=== PATIENT | female | born 1945 | race Caucasian/White ===

== ENCOUNTER 2017-05-14 15:19 | Outpatient (CLI) | payer MEDICARE, BC ==
--- NOTE | 2017-05-14 16:25 | RAD ---
CHEST ONE VIEW: History: Dyspnea. Comparison: 04-27-17 FINDINGS: Cardiac silhouette is magnified, enlarged, and partially obscured by a large amount of left pleural fluid, similar in appearance to the previous exam. Patient was rotated rightward. Right lung is well inflated. IMPRESSION: Large left pleural effusion and other findings are stable. POS: [facility]
== END 2017-05-14 15:20 | disposition home or self-care (01) ==
LOC: RAD 15:19
PROVIDERS: ATTEND Internal Medicine Critical Care Medicine
DX: R06.00 Dyspnea, unspecified (principal); J90 Pleural effusion, not elsewhere classified
CPT/HCPCS: 71020

== ENCOUNTER 2017-06-03 12:55 | Outpatient (CLI) | payer MEDICARE, BC ==
--- NOTE | 2017-06-03 13:29 | RAD ---
PA AND LATERAL VIEWS OF CHEST: Date: 06/03/17 HISTORY: Dyspnea. FINDINGS: Comparison made with exam of 05/14/17. The heart size is enlarged. The aorta is tortuous. A large left pleural effusion is noted with mild interval increase in size since the last exam. The right lung remains well aerated. Surgical clips i n the right axilla are again seen. The mid thoracic vertebral body is again noted. IMPRESSION: Large left pleural effusion with mild interval increase in size since 05/14/17. POS: [facility]
== END 2017-06-03 12:56 | disposition home or self-care (01) ==
LOC: RAD 12:55
PROVIDERS: ATTEND Internal Medicine Critical Care Medicine
DX: R06.00 Dyspnea, unspecified (principal)
CPT/HCPCS: 71020

== ENCOUNTER 2017-06-03 15:01 | Inpatient (IN) | payer MEDICARE, BC ==
[2017-06-03] MEDS ORDERED: Diltiazem HCl 125 MG, Admixture Fee 1 EACH in Sodium Chloride 0.9% 100 ML IVPB SCH (15:45)
[2017-06-03] MEDS ORDERED: Phytonadione 10 MG/ML AMP PO SCH (15:45)
[2017-06-03 16:34] VITALS: BMI 27.9
[2017-06-03 16:35] LABS: Prothrombin Time 35.2 SEC (12.0-14.7)
--- NOTE | 2017-06-03 16:39 | HP ---
DATE OF ADMISSION: 06/03/2017 REASON FOR ADMISSION: Atrial fibrillation with rapid ventricular response and also a massive left p leural effusion. HISTORY OF PRESENT ILLNESS: This is a 71-year-old female, who I first saw in the hospital in early 04/2017. At that time, she was admitted with hypotension and chest tightness. It was initially tho ught that she had congestive heart failure and perhaps liver failure, as she had a profound coagulop athy when she presented. She also had severe anemia. It was also thought that she had a small pulm onary embolism. She gradually got better and was discharged home. Dr. Elam did do a thoracentes is on the left side at that time, which showed a bloody exudative pleural effusion. She followed up in my office a couple weeks later and had a repeat chest x-ray, which showed continued pleural effu danisha on the left. At that time, she did not want to be admitted into the hospital. She wanted to s ee how she did over the next couple of weeks. She came in today for continued followup and an x-ray demonstrated continued large left pleural effusion. I also noted that she had a heart rate of 145, but did not appear to be in any respiratory distress. I spoke with Dr. Amaya and I have decided to admit her for the purpose of reversing her anticoagulation, controlling her ventricular rate, and h aving a thoracoscopy performed to work up the pleural effusion. PAST MEDICAL HISTORY: 1. Mitral valve prolapse. 2. Hyperlipidemia. 3. Hypothyroidism. 4. Depression. 5. Insomnia. 6. Ulcerative colitis. PAST SURGICAL HISTORY: 1. She has had a carpal tunnel release. 2. Modified radical mastectomy of the right breast along with radiation to that breast. 3. Sigmoid colectomy. MEDICATIONS: Atorvastatin 40 mg daily, tessalon perles 200 mg daily as needed, ergocalciferol 50,00 0 units weekly, escitalopram 20 mg daily, iron sulfate 325 mg daily, fluticasone nasal spray 50 mcg 1 squirt in each nostril daily, levocetirizine 5 mg daily, levothyroxine 75 mcg daily, metoprolol 25 mg b.i.d., lisinopril 2.5 mg daily, pantoprazole 40 mg daily, mirtazapine 15 mg daily, polyethylene glycol daily, Theragran 50 mg daily, warfarin 2.5 mg daily, and Ambien 10 mg daily. ALLERGIES: DOXYCYCLINE, PENICILLIN, and MORPHINE. SOCIAL HISTORY: Does not use illicit drugs. She had a positive test for methamphetamine on the [facility] admission, but that is felt to be a contaminant or false positive. FAMILY MEDICAL HISTORY: She stopped smoking in the high school. Does not consume alcohol. REVIEW OF SYSTEMS: Remarkable for dyspnea and some loss of appetite. PHYSICAL EXAMINATION: VITAL SIGNS: Her O2 sat was 96%, pulse 145, blood pressure 110/80, respiratory rate 20. GENERAL: She is awake, alert, did not appear to be in any distress. HEENT EXAM: Pupils react. Sclerae are anicteric. Oropharynx is clear. NECK: Without adenopathy or JVD. LUNGS: Diminished breath sounds over the left side globally. Right side clear. CARDIAC: S1, S2, irregularly irregular and tachycardic. ABDOMEN: Soft, nontender, nondistended. EXTREMITIES: No clubbing, cyanosis, or edema. IMAGING: Her chest x-ray shows a massive left pleural effusion. ASSESSMENT: 1. Recurrent left pleural effusion -- bloody and exudative on last admission. 2. Anticoagulation for atrial fibrillation and a recent questionable small pulmonary embolism. 3. Atrial fibrillation with rapid ventricular response. PLAN: 1. Consult Dr. Amaya for thoracoscopy. 2. Reversing anticoagulation with vitamin K. 3. Consult Dr. Roth for evaluation of the patient's atrial fibrillation and control of ventricu lar rate. 4. Further disposition to follow.
[2017-06-03 16:47] LABS: #Basophils 0.1 thou/uL (0.0-0.2); #Eosinphils 0.1 thou/uL (0.0-0.7); #Lymphocytes 1.8 thou/uL (1.20-3.40); #Monocytes 0.6 thou/uL (0.11-0.59); #Neutrophils 4.3 thou/uL (1.40-6.50); %Eosinophils 1.9 % (0.0-10.0); %Lymphocytes 26.2 % (21.0-51.0); %Monocytes 8.9 % (0.0-10.0); Anisocytosis MODERATE=16-30 cells (100X) (0-5/hpf); Hematocrit 38.7 % (36.0-47.0); Hypochromia SLIGHT = 6-15 cells (100X) (0-5/hpf); Mean Platelet Volume 9.6 fL (7.4-10.4); Ovalocytes SLIGHT = 2-5 cells (100X) (0-1/hpf); Polychromasia SLIGHT = 2-3 cells (100X) (0-2/hpf); Red Blood Cell (RBC) Count 4.38 mill/uL (4.20-5.40); Schistocytes SLIGHT = 2-5 cells (100X) (0-1/hpf); Target Cells SLIGHT = 2-5 cells (100X) (0-1/hpf)
[2017-06-03 17:01] LABS: ALT (SGPT) 17 U/L (8-55); AST (SGOT) 25 U/L (5-34); Alkaline Phosphatase 90 U/L (40-150); Anion Gap 12 mmol/L (10-20); BUN (Urea Nitrogen) 13 mg/dL (9.8-20.1); Bilirubin, Total 0.6 mg/dL (0.2-1.2); Calc. Creatinine Clearance 60 mL/min (70-130); Calcium 9.4 mg/dL (7.8-10.44); Carbon Dioxide 26 mmol/L (23-31); Chloride 102 mmol/L (98-107); Estimated GFR-MDRD 56; Globulin 3.6 g/dL (2.4-3.5); Protein, Total 7.3 g/dL (6.0-8.3)
[2017-06-03] MEDS ORDERED: Digoxin 0.5 MG/2 ML AMP SLOW IVP SCH (19:00)
[2017-06-03] MEDS: Mirtazapine 15 MG TAB PO SCH (21:31)
[2017-06-03] MEDS: Atorvastatin Calcium 40 MG TAB PO SCH (21:31)
[2017-06-03] MEDS: Metoprolol Tartrate 25 MG TAB PO SCH (21:31)
[2017-06-03] MEDS: Zolpidem Tartrate 5 MG TAB PO PRN (21:31)
--- NOTE | 2017-06-03 23:38 | CON ---
DATE OF CONSULTATION: 06/03/2017 HISTORY OF PRESENT ILLNESS: This is a 71-year-old female, who hospitalized earlier this month with multiple issues including atrial fibrillation with a rapid ventricular rate bilateral pleural effusi ons, ultimately having a bloody thoracentesis with negative cytology, possible critical aortic steno sis by echo, but not confirmed with diagnostic cardiac catheterization showing no gradient across th e aortic valve and normal coronary arteries. The patient had repeat chest x-ray post-discharge show ing recurring effusion on the left and she declined intervention. Presents today with fatigue and h as sizable pleural effusion on the left again by chest x-ray. It was also noted to have a resting t achycardia of 145. She has put in the hospital by Dr. Karimi to allow for left thoracoscopy. PAST MEDICAL HISTORY: Includes a right modified radical mastectomy about 10 years ago for breast ca ncer. She has also had a perforated diverticulum. She has otherwise past medical history includes mitral valve prolapse, hypothyroidism, and dyslipidemia. MEDICATIONS: Include warfarin, atorvastatin, levocetirizine, levothyroxine, metoprolol, lisinopril, pantoprazole, mirtazapine. ALLERGIES: PENICILLIN, DOXYCYCLINE, and MORPHINE. SOCIAL HISTORY: She is , lives with her son. She is a nonsmoker, nondrinker, and nondrug er. PHYSICAL EXAMINATION: GENERAL: Elderly female in no distress. NECK: No carotid bruits. LUNGS: With present breath sounds anteriorly bilaterally, diminished laterally on the left. CARDIAC: Tachycardia. No murmurs due to the rapid heart rate, I suspect. ABDOMEN: Soft, nontender. EXTREMITIES: No peripheral edema with palpable pedal pulses. She has a compression stocking on her right arm and an absent right breast. PLAN: At this time is for treatment of her INR of 3.3 as well as treatment of her heart rate. Norberto rrow, we will plan on the left thoracoscopy for attempted diagnostic as well as therapeutic drainage .
--- NOTE | 2017-06-04 03:00 | CON ---
DATE OF CONSULTATION: 06/03/2017 HISTORY OF PRESENT ILLNESS: Krista Cooney is a 71-year-old white female, previously evaluated by Dr. Cagle when Ms. Cooney was hospitalized on 04/19/2017. She has a history of chronic atrial fibrillation. She had a profound coagulopathy when she presented last month as well as severe anemia. Chest CT revealed small pulmonary emboli in the right lung. She had bilateral pleural effusions with left greater than right. The right seemed to resolve with diuresis; however, the left persisted and she underwent thoracentesis, which was an exudate and revealed reactive mesothelial cells, but no definite malignancy. During that admission, she also underwent cardiac catheterization, which revealed normal coronary arteries and she had no significant gradient across her aortic valve. On followup with Dr. Karimi, her left pleural effusion has continued to enlarge and she now is admitted for further evaluation of this. At Dr. Karimi' s office, her heart rate was in the 130s to 140s with her atrial fibrillation and she was admitted to reverse her anticoagulation as well as control over atrial fibrillation and then undergo thoracoscopy for more definitive diagnosis. Ms. Cooney does complain of increasing exertional dyspnea. She denies any PND or leg edema. She also has some chest discomfort with coughing, but otherwise no chest pain. PAST MEDICAL HISTORY: Hyperlipidemia, hypothyroidism, irritable bowel syndrome , ulcerative colitis, history of breast cancer, radiation therapy, chronic atrial fibrillation, and a history of mitral valve prolapse. OPERATIONS: Carpal tunnel release, right modified radical mastectomy as well as radiation, and sigmoid colectomy. SOCIAL HISTORY: Some smoking in high school, but none since. She has had positive drug screen in the past for opiates as well as methamphetamines. MEDICATIONS: At home include atorvastatin 40 at bedtime, benzonatate 100 mg t.i.d. p.r.n., vitamin D2 every 7 days, Lexapro 20 mg daily, ferrous sulfate 325 daily, levothyroxine 75 mcg daily, levocetirizine 5 mg daily, lisinopril 2.5 daily, metoprolol 25 b.i.d., Remeron 15 at bedtime, pantoprazole 40 daily, MiraLax 17 grams daily p.r.n., warfarin 2.5 mg daily, zolpidem 10 mg at bedtime , and multivitamin daily. ALLERGIES: To PENICILLIN, MORPHINE, and DOXYCYCLINE. REVIEW OF SYSTEMS: A 12-point review of system is otherwise unremarkable. PHYSICAL EXAMINATION: VITAL SIGNS: Blood pressure 114/59, pulse of 146. HEENT: PERRL. NECK: Supple. CHEST: Fairly clear on the right. On the left, there are no breath sounds three quarters way up from the lung base. CARDIAC EXAM: S1 and S2 are normal, without any S3 or S4. There was a 2/6 systolic murmur. ABDOMEN: Normal bowel sounds without tenderness. EXTREMITIES: Revealed no clubbing, cyanosis, or edema. NEUROLOGIC: Grossly intact. SKIN: Warm and dry. LABORATORY DATA AND IMAGING: EKG is not available, on the monitor, she is in atrial fibrillation with fast ventricular response up to 130 to 140 per minute. Hemoglobin 11.8, hematocrit 38.7, white count 7000, and platelets 258,000. INR is 3.31. Sodium 136, potassium 4.1, chloride 102, carbon dioxide 26, BUN 13 , creatinine 0.97. IMPRESSION: 1. Chronic atrial fibrillation under poor rate control. 2. Persistent left pleural effusion, which has enlarged over the last several weeks. 3. Hypercholesterolemia. 4. Normal coronary arteries. 5. No significant gradient across the aortic valve at cardiac catheterization. 6. History of breast cancer, status post mastectomy. 7. Chronic anticoagulation. PLAN: Patient currently is on Cardizem at 5 mg per hour with blood pressure in the low one hundred and teens with continued elevated heart rate. I will therefore give her 1 dose of digoxin 0.5 mg IV to achieve better rate control. Her anticoagulation will be reversed and she will undergo thoracoscopy for hopefully a more definitive diagnosis. DEEPTID
[2017-06-04] MEDS: Levothyroxine Sodium 75 MCG TAB PO SCH (05:49)
[2017-06-04] MEDS: Metoprolol Tartrate 25 MG TAB PO SCH ×2 (05:49→20:31)
[2017-06-04] MEDS ORDERED: Levofloxacin 500 mg/D5W 100 ml Premix Bag ONE (07:19)
[2017-06-04] MEDS ORDERED: Fentanyl 250 MCG/5 ML VIAL ONE (07:26)
[2017-06-04] MEDS ORDERED: Etomidate 20 MG/10 ML VIAL ONE (07:44)
[2017-06-04] MEDS ORDERED: Propofol 200 MG/20 ML VIAL ONE (07:44)
[2017-06-04] MEDS ORDERED: Dexamethasone 20 MG/5 ML VIAL ONE (07:44)
[2017-06-04] MEDS ORDERED: Ondansetron HCl/PF 4 MG/2 ML Vial ONE (07:44)
[2017-06-04] MEDS ORDERED: Glycopyrrolate 0.2 MG/ML 5 ML SYRINGE ONE (07:44)
[2017-06-04] MEDS ORDERED: Succinylcholine Chloride 20 MG/ML 10 ml SYRINGE FS ONE (07:44)
[2017-06-04] MEDS ORDERED: Bupivacaine PF 0.5% 30 ML VIAL ONE (07:50)
[2017-06-04] MEDS ORDERED: Talc 30 GM AEROSOL CAN ONE (08:23)
[2017-06-04] MEDS ORDERED: Fentanyl 100 MCG/2 ML VIAL ONE (09:51)
--- NOTE | 2017-06-04 10:18 | OP ---
PREOPERATIVE DIAGNOSIS: Bloody pleural effusion. POSTOPERATIVE DIAGNOSIS: Serous pleural effusion. PROCEDURE: Left subclavian triple lumen CVP and left thoracoscopy with the talc pleurodesis. SURGEON: Rodney Amaya M.D. ANESTHESIA: General. ESTIMATED BLOOD LOSS: Less than 50. PROCEDURE IN DETAIL: After adequate anesthesia had been obtained with a double lumen tube, left sub clavian central line was placed. The patient had no peripheral IV access. Following this, the mattie ent was placed in the right lateral decubitus position, the lung deflated and incision placed. A he mostat was used to enter the pleural space. Trocar was placed and 1,000 mL of serous fluid was sent . Specimen was placed in a container for studies and was sent off for cultures for further studies could be ordered. The chest cavity was thoroughly inspected. The lung appeared completely normal. The parietal and pleural surfaces appeared normal with no inflammation or implants. Talc spray ple urodesis was then instilled and a 28 chest tube was placed through a separate port site into the ape x of the chest. The patient is to be taken to the recovery room.
[2017-06-04] MEDS ORDERED: Sodium Chloride 0.45% 1,000 ML IV SCH (10:52)
[2017-06-04] MEDS ORDERED: Fentanyl 100 MCG/2 ML VIAL SLOW IVP PRN (10:52)
[2017-06-04] MEDS ORDERED: Ondansetron HCl/PF 4 MG/2 ML Vial IVP PRN (10:52)
[2017-06-04] MEDS: Ferrous Sulfate 325 MG TAB PO SCH (11:48)
[2017-06-04] MEDS: Escitalopram Oxalate 20 mg Tablet PO SCH (11:48)
[2017-06-04] MEDS: Loratadine 10 MG TAB PO SCH (11:49)
[2017-06-04] MEDS: Lisinopril 2.5 MG TAB PO SCH (11:49)
[2017-06-04] MEDS: Fluticasone Propionate Nasal Spray 16 gm Bottle NASAL SCH (11:50)
[2017-06-04] MEDS ORDERED: Ketorolac Tromethamine 15 MG/ML VIAL IVP SCH (12:00)
[2017-06-04] MEDS: Ketorolac Tromethamine 30 MG/ML VIAL IVP SCH ×3 (12:04→23:29)
--- NOTE | 2017-06-04 12:06 | RAD ---
CHEST ONE VIEW: History: 71-year-old female, follow up left chest tube. FINDINGS: Left chest tube is place. The previously noted moderately large left pleural effusion has markedly d iminished in size. No significant pneumothorax. Left subclavian catheter in place. Cardiomegaly. Inc reased bronchovascular markings bilaterally with some right costophrenic angle blunting, evidence fo r small right pleural effusion. Several thoracic vertebral bodies show up to moderate vertical heigh t loss, stable. IMPRESSION: Stable cardiomegaly with increased bronchovascular markings bilaterally. Left chest tube placement w ith marked decrease in the size of the previously noted left pleural effusion. Right costophrenic an gle blunting. No pneumothorax. Continued short term follow up. POS: [facility]
[2017-06-04] MEDS: HYDROcodone/Acetaminophen 5/325 mg Tablet PO PRN ×2 (14:16→20:32)
--- NOTE | 2017-06-04 16:50 | PDOC.CTH ---
<Zulema Calderon - Last Filed: 06/04/17 18:00> Cardiology Progress Note - Subjective The pt seen and examined. No overnight events. No cardiac complaints. S/p thoracentesis today. Diltiazem IV was d/bibi at 0300 in this AM - Objective Vital Signs Temp Pulse Resp BP BP Pulse Ox 06/04/17 15:33 98.2 F 89 17 101/49 L 94 L 06/04/17 11:49 71 117/55 L 06/04/17 11:07 97.4 F L 74 17 124/58 L 93 L Weight 161 lb 4.8 oz 06/03/17 06/04/17 06/05/17 06:59 06:59 06:59 Intake Total 780 Output Total 1050 Balance -270 - Physical Examination General/Neuro: alert & oriented x3 Neck: no JVD present Lungs: other: (Diminished at bases) Heart: other: (irregular) Abdomen: soft Extremities: other: (No edema) - Telemetry Telemetry Rhythm: Afib 80s - Labs Result Diagrams: 06/03/17 16:16 06/03/17 16:16 - Assessment/Plan 1. Lt pleural effusion - s/p thoracentesis today; 2. Afib with RVR - stable with BBlocker; cont. monitor on tele 3. Hx of PE in Rt lung in 04/2017 - on Coumadin; 4. Dyslipidemia - on Statin medication MAR reviewed Review of Systems - Review of Systems Constitutional: reports: no symptoms reported EENTM: reports: no symptoms reported Respiratory: reports: no symptoms reported Cardiac (ROS): reports: no symptoms reported ABD/GI: reports: no symptoms reported : reports: no symptoms reported Musculoskeletal: reports: no symptoms reported Skin: reports: no symptoms reported <Racheal Cagle - Last Filed: 06/04/17 19:33> Cardiology Progress Note - Objective Vital Signs Temp Pulse Resp BP BP Pulse Ox 06/04/17 15:33 98.2 F 89 17 101/49 L 94 L 06/04/17 11:49 71 117/55 L 06/04/17 11:07 97.4 F L 74 17 124/58 L 93 L 06/04/17 10:30 98.2 F 89 17 94 L Weight 161 lb 4.8 oz 06/03/17 06/04/17 06/05/17 06:59 06:59 06:59 Intake Total 780 Output Total 1050 Balance -270 - Labs Result Diagrams: 06/04/17 18:14 06/03/17 16:16 - Assessment/Plan She was seen and eval. by me. She underwent a surgical thorocetesis today and has insertion of Talc powder into the thoracic cavity due to recurrent pleural effusion.She denies any cardiac complaints. i agree with the A/P by the INCOME TAX ADJUSTER.
[2017-06-04] MEDS: Warfarin Sodium 2.5 MG TAB PO SCH (17:53)
[2017-06-04 18:34] LABS: Hematocrit 37.9 % (36.0-47.0)
[2017-06-04 18:43] LABS: Prothrombin Time 19.5 SEC (12.0-14.7)
[2017-06-04] MEDS: Zolpidem Tartrate 5 MG TAB PO PRN (20:31)
[2017-06-04] MEDS: Mirtazapine 15 MG TAB PO SCH (20:31)
[2017-06-04] MEDS: Atorvastatin Calcium 40 MG TAB PO SCH (20:31)
[2017-06-05] MEDS: Ketorolac Tromethamine 30 MG/ML VIAL IVP SCH ×3 (05:56→17:59)
[2017-06-05] MEDS: Levothyroxine Sodium 75 MCG TAB PO SCH (05:57)
[2017-06-05 06:16] LABS: Prothrombin Time 21.8 SEC (12.0-14.7)
--- NOTE | 2017-06-05 08:23 | RAD ---
PORTABLE CHEST ONE VIEW: Date: 06-05-17 Time: 7:00 a.m. History: Follow up left chest tube. FINDINGS/IMPRESSION: No significant interval change is seen since the previous day's exam. POS: [facility]
--- NOTE | 2017-06-05 08:56 | PRG ---
DATE OF SERVICE: 06/05/2017 She states that she is breathing better. She wants to get up into a chair and start walking around. PHYSICAL EXAMINATION: VITAL SIGNS: Temperature 97.6, pulse 73, blood pressure 100/53, O2 sat 97% on 3 liters, respiratory rate 18. GENERAL: She is awake and alert and in no distress. HEENT: Unremarkable. NECK: Shows no adenopathy or JVD. LUNGS: Clear to auscultation. She has a chest tube in the left hemothorax which is draining serosa nguineous fluid. CARDIAC: Rhythm is irregularly irregular without murmur. ABDOMEN: Soft and nontender. EXTREMITIES: Without clubbing, cyanosis, or edema. LABORATORY DATA: INR is 1.8. Micro cultures show no growth to date. ASSESSMENT: 1. Left pleural effusion, which appears to be transudative on second look. 2. Atrial fibrillation with uncontrolled ventricular rate at the time of admission, which is now co ntrolled. 3. History of small PE on last hospitalization. PLAN: 1. Coumadin was restarted last night. 2. I would anticipate that she can go home as soon as the chest tube can be removed. 3. Continue control of heart rate with metoprolol. It may have been that her heart rate was being exacerbated by the size or pleural effusion. I think her pleural effusion is probably cardiac in sixto oquendo and that her valve issues may need a second look.
[2017-06-05] MEDS: Ferrous Sulfate 325 MG TAB PO SCH (10:05)
[2017-06-05] MEDS: Escitalopram Oxalate 20 mg Tablet PO SCH (10:05)
[2017-06-05] MEDS: Lisinopril 2.5 MG TAB PO SCH (10:05)
[2017-06-05] MEDS: Loratadine 10 MG TAB PO SCH (10:06)
[2017-06-05] MEDS: Metoprolol Tartrate 25 MG TAB PO SCH ×2 (10:06→21:41)
[2017-06-05] MEDS: Fluticasone Propionate Nasal Spray 16 gm Bottle NASAL SCH (12:02)
--- NOTE | 2017-06-05 13:35 | PDOC.CTH ---
Cardiology Progress Note - Subjective The pt seen and examined. No overnight events. No cardiac complaints. She feels and breath better today. - Objective Vital Signs Temp Pulse Resp BP BP Pulse Ox 06/05/17 12:37 97.9 F 74 16 114/55 L 98 06/05/17 10:05 84 120/57 L 06/05/17 09:58 97.9 F 84 16 120/57 L 100 06/05/17 08:55 97.9 F 84 16 98 06/05/17 04:00 97.6 F 73 18 100/53 L 97 Weight 161 lb 4.8 oz 06/04/17 06/05/17 06/06/17 06:59 06:59 06:59 Intake Total 780 703 Output Total 1050 910 Balance -270 -207 - Physical Examination General/Neuro: alert & oriented x3 Neck: no JVD present Lungs: other: (diminished at bases at Lt lung) Heart: other: (irregular) Abdomen: soft Extremities: other: (No edmea) - Telemetry Telemetry Rhythm: Afib 80s - Labs Result Diagrams: 06/04/17 18:14 06/03/17 16:16 - Assessment/Plan 1. Lt pleural effusion - s/p thoracentesis on 06/04/17; Possible Cardiac cath to evaluate valves; 2. Afib with RVR - stable with BBlocker; cont. monitor on tele 3. Hx of PE in Rt lung in 04/2017 - on Coumadin; INR today was 1.8 4. Dyslipidemia - on Statin medication MAR reviewed Review of Systems - Review of Systems Constitutional: reports: no symptoms reported EENTM: reports: no symptoms reported Respiratory: reports: no symptoms reported Cardiac (ROS): reports: no symptoms reported ABD/GI: reports: no symptoms reported : reports: no symptoms reported Musculoskeletal: reports: no symptoms reported Skin: reports: no symptoms reported Neurological: reports: no symptoms reported
[2017-06-05] MEDS: HYDROcodone/Acetaminophen 5/325 mg Tablet PO PRN (16:08)
[2017-06-05] MEDS: Warfarin Sodium 2.5 MG TAB PO SCH (17:59)
[2017-06-05 18:40] LABS: Prothrombin Time 18.3 SEC (12.0-14.7)
[2017-06-05] MEDS: Mirtazapine 15 MG TAB PO SCH (21:41)
[2017-06-05] MEDS: Zolpidem Tartrate 5 MG TAB PO PRN (21:41)
[2017-06-05] MEDS: Atorvastatin Calcium 40 MG TAB PO SCH (21:42)
[2017-06-06] MEDS: Ketorolac Tromethamine 30 MG/ML VIAL IVP SCH ×5 (00:03→23:37)
[2017-06-06] MEDS: Levothyroxine Sodium 75 MCG TAB PO SCH (05:29)
[2017-06-06 05:33] LABS: Prothrombin Time 19.2 SEC (12.0-14.7)
[2017-06-06] MEDS ORDERED: Furosemide 20 MG TAB PO SCH (06:45)
[2017-06-06] MEDS ORDERED: Furosemide 40 MG TAB PO SCH (06:45)
--- NOTE | 2017-06-06 09:08 | PRG ---
DATE OF SERVICE: 06/06/2017 SUBJECTIVE: She is in good spirits. She is up in a chair this morning. She has a chest tube in [facility]. PHYSICAL EXAMINATION: VITAL SIGNS: Temperature 97.5, pulse 68, respirations 18, O2 sat 94%, blood pressure 112/55. HEENT: Unremarkable. NECK: No JVD. CHEST: Clear. CARDIAC: S1 and S2, irregular irregular. ABDOMEN: Soft. EXTREMITIES: No edema. LABORATORY DATA: INR is 1.6. ASSESSMENT: 1. Left pleural effusion, which ended up being transudative on second look. 2. Atrial fibrillation with now controlled ventricular response. 3. History of a small PE in the last hospitalization. PLAN: 1. We are waiting for the chest tube output to decrease. Once the chest tube output is minimal, th e tube can be pulled and she can go home. 2. I am planning on leaving her on the same warfarin dose and letting her INR slowly come back up t o therapeutic levels. Dr. Terry has been following her in the office for INR. I have left discharg e plan on the chart should she go home this weekend.
[2017-06-06] MEDS: HYDROcodone/Acetaminophen 5/325 mg Tablet PO PRN ×3 (09:30→22:20)
[2017-06-06] MEDS: Escitalopram Oxalate 20 mg Tablet PO SCH (09:31)
[2017-06-06] MEDS: Ferrous Sulfate 325 MG TAB PO SCH (09:33)
[2017-06-06] MEDS: Fluticasone Propionate Nasal Spray 16 gm Bottle NASAL SCH (09:34)
[2017-06-06] MEDS: Lisinopril 2.5 MG TAB PO SCH (09:35)
[2017-06-06] MEDS: Loratadine 10 MG TAB PO SCH (09:36)
[2017-06-06] MEDS: Metoprolol Tartrate 25 MG TAB PO SCH ×2 (09:37→22:19)
--- NOTE | 2017-06-06 09:51 | RAD ---
1 VIEW CHEST: Date: 06/06/17 COMPARISON: 06/05/17. HISTORY: Chest tube. FINDINGS: Left-sided chest tube is unchanged. Left-sided central venous catheter is also stable. Persistent ca rdiomegaly. Stable parenchymal changes. Stable hyperinflation. Pneumothorax is not appreciated. IMPRESSION: No significant change. POS: [facility]
--- NOTE | 2017-06-06 12:54 | PDOC.CTH ---
<Zulema Calderon - Last Filed: 06/06/17 12:52> Cardiology Progress Note - Subjective Pt. was seen and examined. No overnight events. No cardiac complaints. - Objective Vital Signs Temp Pulse Pulse Pulse Resp BP BP 06/06/17 12:15 97.7 F 82 16 06/06/17 11:38 76 80 111/55 L 06/06/17 09:35 80 107/51 L 06/06/17 09:24 97.5 F L 80 18 06/06/17 08:00 97.5 F L 80 18 06/06/17 04:13 97.5 F L 68 18 06/06/17 02:28 BP BP Pulse Ox Pulse Ox Pulse Ox 06/06/17 12:15 110/75 98 06/06/17 11:38 110/75 97 95 06/06/17 09:35 06/06/17 09:24 107/51 L 95 06/06/17 08:00 95 06/06/17 04:13 112/55 L 94 L 06/06/17 02:28 96 Weight 168 lb 6.4 oz 06/05/17 06/06/17 06/07/17 06:59 06:59 06:59 Intake Total 703 1200 Output Total 910 1290 Balance -207 -90 - Physical Examination General/Neuro: alert & oriented x3 Neck: no JVD present Lungs: other: (diminished at bases) Heart: other: (irregular) Abdomen: soft Extremities: other: (no edema) - Telemetry Telemetry Rhythm: Afib 71 - Labs Result Diagrams: 06/04/17 18:14 06/03/17 16:16 - Assessment/Plan 1. Lt pleural effusion - s/p thoracentesis on 06/04/17; She was told her CT might d/c next week; Cardiac cath 1 month ago with nl. cors and EF. The AV stenosis was mild. The pleural effusion is not likely cardiac . 2. Afib with RVR - stable with BBlocker; cont. monitor on tele 3. Hx of PE in Rt lung in 04/2017 - on Coumadin; INR today was 1.8 4. Dyslipidemia - on Statin medication MAR reviewed Review of Systems - Review of Systems Constitutional: reports: no symptoms reported EENTM: reports: no symptoms reported Respiratory: reports: no symptoms reported Cardiac (ROS): reports: no symptoms reported ABD/GI: reports: no symptoms reported : reports: no symptoms reported Musculoskeletal: reports: no symptoms reported <Racheal Cagle - Last Filed: 06/06/17 13:10> Cardiology Progress Note - Objective Vital Signs Temp Pulse Pulse Pulse Resp BP BP 06/06/17 12:15 97.7 F 82 16 06/06/17 11:38 76 80 111/55 L 06/06/17 09:35 80 107/51 L 06/06/17 09:24 97.5 F L 80 18 06/06/17 08:00 97.5 F L 80 18 06/06/17 04:13 97.5 F L 68 18 06/06/17 02:28 BP BP Pulse Ox Pulse Ox Pulse Ox 06/06/17 12:15 110/75 98 06/06/17 11:38 110/75 97 95 06/06/17 09:35 06/06/17 09:24 107/51 L 95 06/06/17 08:00 95 06/06/17 04:13 112/55 L 94 L 06/06/17 02:28 96 Weight 168 lb 6.4 oz 06/05/17 06/06/17 06/07/17 06:59 06:59 06:59 Intake Total 703 1200 Output Total 910 1290 Balance -207 -90 - Labs Result Diagrams: 06/04/17 18:14 06/03/17 16:16 - Assessment/Plan Pt. seen and eval. I agree with the A/P by the BENCH EXAMINER. Interesting case. I doubt the pleural effusion is cardiac.
[2017-06-06] MEDS: Warfarin Sodium 2.5 MG TAB PO SCH (17:27)
[2017-06-06 18:24] LABS: Prothrombin Time 24.5 SEC (12.0-14.7)
[2017-06-06] MEDS: Atorvastatin Calcium 40 MG TAB PO SCH (22:19)
[2017-06-06] MEDS: Mirtazapine 15 MG TAB PO SCH (22:19)
[2017-06-06] MEDS: Zolpidem Tartrate 5 MG TAB PO PRN (22:20)
[2017-06-07] MEDS: Ketorolac Tromethamine 30 MG/ML VIAL IVP SCH ×3 (06:25→18:39)
[2017-06-07] MEDS: Levothyroxine Sodium 75 MCG TAB PO SCH (06:25)
[2017-06-07 06:48] LABS: Prothrombin Time 25.4 SEC (12.0-14.7)
--- NOTE | 2017-06-07 08:33 | RAD ---
CHEST 1 VIEW: Date: 06/07/17 COMPARISON: 06/06/17. HISTORY: Chest tube. FINDINGS: Stable left-sided central venous catheter and stable left-sided chest tube. Persistent cardiomegaly. Stable parenchymal changes. Small bilateral effusions are suspected. No pneumothorax. IMPRESSION: No change. POS: [facility]
[2017-06-07] MEDS: Loratadine 10 MG TAB PO SCH (09:12)
[2017-06-07] MEDS: Ferrous Sulfate 325 MG TAB PO SCH (09:12)
[2017-06-07] MEDS: Escitalopram Oxalate 20 mg Tablet PO SCH (09:12)
[2017-06-07] MEDS: Lisinopril 2.5 MG TAB PO SCH (09:13)
[2017-06-07] MEDS: Metoprolol Tartrate 25 MG TAB PO SCH ×2 (09:13→21:19)
[2017-06-07] MEDS: Fluticasone Propionate Nasal Spray 16 gm Bottle NASAL SCH (09:13)
[2017-06-07] MEDS: HYDROcodone/Acetaminophen 5/325 mg Tablet PO PRN ×3 (10:30→21:22)
[2017-06-07] MEDS ORDERED: Furosemide 20 MG TAB PO SCH (12:15)
--- NOTE | 2017-06-07 15:57 | PRG ---
DATE OF SERVICE: 06/07/2017 SUBJECTIVE: Ms. Cooney says she is feeling better. OBJECTIVE: VITAL SIGNS: Blood pressure 109/56, heart rate 83. She is afebrile. Respiratory rate is in the te ens, oximetry is 93%. LUNGS: Clear. HEART: Irregular rhythm. S1 and S2 are normal. ABDOMEN: Soft. IMPRESSION AND PLAN: Atrial fibrillation with an effusion. She has been ambulating with her Pleur- evac, so she is feeling better today.
[2017-06-07] MEDS ORDERED: Warfarin Sodium 1.25 MG HALF.TAB PO SCH (17:00)
[2017-06-07 18:20] LABS: Prothrombin Time 25.6 SEC (12.0-14.7)
[2017-06-07] MEDS: Atorvastatin Calcium 40 MG TAB PO SCH (21:19)
[2017-06-07] MEDS: Mirtazapine 15 MG TAB PO SCH (21:20)
[2017-06-07] MEDS: Zolpidem Tartrate 5 MG TAB PO PRN (21:22)
[2017-06-08] MEDS: Ketorolac Tromethamine 30 MG/ML VIAL IVP SCH ×3 (01:13→12:40)
[2017-06-08] MEDS: HYDROcodone/Acetaminophen 5/325 mg Tablet PO PRN (01:14)
[2017-06-08 05:17] LABS: Prothrombin Time 26.8 SEC (12.0-14.7)
[2017-06-08] MEDS: Levothyroxine Sodium 75 MCG TAB PO SCH (05:46)
[2017-06-08] MEDS ORDERED: Potassium Chloride 10 MEQ TAB PO SCH (08:00)
[2017-06-08] MEDS: Loratadine 10 MG TAB PO SCH (08:38)
[2017-06-08] MEDS: Ferrous Sulfate 325 MG TAB PO SCH (08:38)
[2017-06-08] MEDS: Lisinopril 2.5 MG TAB PO SCH (08:38)
[2017-06-08] MEDS: Fluticasone Propionate Nasal Spray 16 gm Bottle NASAL SCH (08:39)
[2017-06-08] MEDS: Escitalopram Oxalate 20 mg Tablet PO SCH (08:39)
[2017-06-08] MEDS: Metoprolol Tartrate 25 MG TAB PO SCH (08:39)
[2017-06-08 11:19] VITALS: BP 108/53; TEMP 98.1
--- NOTE | 2017-06-08 14:44 | PRG ---
DATE OF SERVICE: 06/08/2017 SUBJECTIVE: Ms. Cooney has no complaints, her chest tube out. OBJECTIVE: VITAL SIGNS: She is afebrile, heart rate 67, respiratory rate is 18, oximetry 93 on room air. Bloo d pressure 108/53. IMPRESSION: 1. Atrial fibrillation, pleural effusion. 2. Status post thoracoscopy with talc pleurodesis. PLAN: Continue supportive care.
--- NOTE | 2017-06-08 15:04 | DIS ---
HOSPITAL COURSE: The patient was admitted with recurrent left pleural effusion with last thoracente sis showing a bloody pleural effusion. Concern over malignancy was raised and she was admitted and underwent a left thoracoscopy. At that time, she had only serous fluid and no evidence of any pleur al or parenchymal disease. Talc pleurodesis was performed intraoperatively. Her chest tube was rem luis e on postoperative day #5 with minimal serous output. She will be discharged home. Her Coumadin was decreased from 2.5-2 mg daily, and her INR at the time of discharge was 2.4. No other medicati on changes were made and she was given a prescription for Tylenol #3 for pain as needed.
== END 2017-06-08 15:00 | disposition home health service (06) | DRG 188 ==
LOC: 2NO 15:20
PROVIDERS: ADMIT Internal Medicine Critical Care Medicine; ATTEND Internal Medicine Critical Care Medicine
PROC: 3E0L4GC Introduction of Other Therapeutic Substance into Pleural Cavity, Percutaneous Endoscopic Approach (ICD-10-PCS; principal; 2017-06-04)
PROC: 05H633Z Insertion of Infusion Device into Left Subclavian Vein, Percutaneous Approach (ICD-10-PCS; 2017-06-04)
DX: J90 Pleural effusion, not elsewhere classified (principal); I48.2 Chronic atrial fibrillation; I34.1 Nonrheumatic mitral (valve) prolapse; Z86.711 Personal history of pulmonary embolism; R79.1 Abnormal coagulation profile; Z79.01 Long term (current) use of anticoagulants; E03.9 Hypothyroidism, unspecified; F32.9 Major depressive disorder, single episode, unspecified; G47.00 Insomnia, unspecified; Z90.49 Acquired absence of other specified parts of digestive tract; Z85.3 Personal history of malignant neoplasm of breast; E78.00 Pure hypercholesterolemia, unspecified; Z90.11 Acquired absence of right breast and nipple; Z87.891 Personal history of nicotine dependence
CPT/HCPCS: 36415; 71010; 71020; 80053; 85014; 85018; 85025; 85049; 85610; 86850; 86900; 86901; 87070; 87102; 87205; 87206; A4216; G8978-GP-CJ; G8979-GP-CJ; G8980-GP-CJ; J1100; J1160; J1642; J1885; J1956; J2405; J2704; J3010; J3430; J7050; S0020

== ENCOUNTER 2017-06-23 13:49 | Outpatient (CLI) | payer MEDICARE, BC ==
--- NOTE | 2017-06-23 17:00 | RAD ---
TWO VIEW CHEST: Comparison: 06-07-17 Clinical history: Pleural effusion. FINDINGS: There has been slight increase in volume of pleural fluid involving the left hemithorax when compare d to 06-07-17 exam. Marked enlargement of the cardiac silhouette remains. There has been removal of the prior left subclavian venous catheter. No additional significant interval detrimental change. IMPRESSION: 1. Slightly increased volume of left pleural fluid collection. 2. Re-demonstration of marked enlargement of cardiac silhouette. POS: [facility]
== END 2017-06-23 13:50 | disposition home or self-care (01) ==
LOC: RAD 13:49
PROVIDERS: ATTEND Thoracic Surgery (Cardiothoracic Vascular Surgery)
DX: J91.8 Pleural effusion in other conditions classified elsewhere (principal)
CPT/HCPCS: 71020

== ENCOUNTER 2017-07-14 12:06 | Outpatient (CLI) | payer MEDICARE, BC ==
--- NOTE | 2017-07-14 15:01 | RAD ---
PA AND LATERAL OF THE CHEST: INDICATION: History of dyspnea. FINDINGS: There is prominent cardiomegaly and pulmonary vascular congestion. Small left-sided pleural effusion has slightly diminished since the comparison exam. Chronic lung changes are similar. Chronic osseo us changes are similar. IMPRESSION: Persistent cardiomegaly with slightly decreased left-sided pleural effusion. POS: [facility]
== END 2017-07-14 12:07 | disposition home or self-care (01) ==
LOC: RAD 12:06
PROVIDERS: ATTEND Internal Medicine Critical Care Medicine
DX: R06.00 Dyspnea, unspecified (principal); I51.7 Cardiomegaly; J90 Pleural effusion, not elsewhere classified
CPT/HCPCS: 71020

== ENCOUNTER 2017-07-30 14:35 | Outpatient (CLI) | payer MEDICARE, BC | END 2017-07-30 14:36 | disposition home or self-care (01) | LOC: BICRAD 14:35 | PROVIDERS: ATTEND Family Medicine | DX: R60.9 Edema, unspecified (principal); I50.9 Heart failure, unspecified | CPT/HCPCS: 71020 ==

== ENCOUNTER 2017-08-21 05:51 | Day surgery (SDC) | payer MEDICARE, OTHER ==
[2017-08-19 15:48] VITALS: BMI 24.0
[2017-08-21] MEDS ORDERED: Diprivan 40 ML ONE (07:13)
--- NOTE | 2017-08-21 09:36 | DIS ---
This is a 71-year-old female with atrial fibrillation. She was advised to undergo a transesophageal e chocardiogram and then attempted cardioversion back to sinus rhythm. Her other diagnoses include hypo thyroidism as well as hypercholesterolemia, gastroesophageal reflux disease, asthma, anemia, and hist ory of breast cancer with radiation. Discharge diagnoses were the same except she was successfully converted from her atrial fibrillation back to sinus rhythm. Procedures i n the hospital included a transesophageal echocardiogram, as well as an electrical cardioversion of a trial fibrillation back to sinus rhythm. DISCHARGE MEDICATIONS: Lisinopril 2.5 mg daily, metoprolol 25 mg b.i.d., mirtazapine 15 mg 1 q.p.m.. Theragran vitamins, clay toprazole 40 mg daily, polyethylene glycol 3350 175 gm dose oral solution every day with 8 ounces of water, fluticasone 50 mcg nasal spray, vitamin D2, benzonatate 100 mg three times daily, zolpidem 10 mg q.p.m., levocetirizine 1 tablet q.p.m., escitalopram 20 mg daily, levothyroxine 75 mcg daily, kaelyn min B12 one tablet daily, atorvastatin 40 mg daily, multivitamins daily, Coumadin 2.5 mg daily, and d igoxin 250 mcg daily. FOLLOWUP: Her follow up will be with me in the next 2-4 weeks in the office for repeat evaluation and EKG to en sure that she remains in sinus rhythm.
--- NOTE | 2017-08-21 09:39 | OP ---
CARDIOLOGY PROCEDURE NOTE: INDICATION: Atrial fibrillation. PROCEDURE: Electrical cardioversion. PROCEDURE DETAILS: Electrical cardioversion of atrial fibrillation back to sinus rhythm with one attempt at 200 joules o nly and she converted back to sinus rhythm without difficulties or complications.
--- NOTE | 2017-08-21 09:43 | ECHO ---
TRANSESOPHAGEAL ECHOCARDIOGRAM: This is a 71-year-old female with atrial fibrillation who was advised to undergo an electrical cardio version of atrial fibrillation. She has been on anticoagulation and was advised to undergo a transeso phageal echocardiogram to rule out evidence of left atrial or left atrial appendage thrombus. The patient was taken to the recovery area and given short acting propofol. The transesophageal prob e was passed down the distal esophagus. IMPRESSION: 1. Normal left ventricular systolic function, ejection fraction 50-55%. 2. Left atrial dilatation at 5.3 cm. 3. Moderate mitral valve regurgitation. 4. Mild tricuspid valve regurgitation. 5. Trace aortic valve regurgitation. 6. Mild aortic valve sclerosis. 7. Good flow of 5 meters/second in the left atrial appendage. No evidence of patent foramen ovale or atrial septal defect. No evidence of left atrial or left atrial appendage thrombus.
[2017-08-21] MEDS ORDERED: Propofol 200 MG/20 ML VIAL ONE (16:59)
== END 2017-08-21 10:15 | disposition home or self-care (01) ==
LOC: SDC 05:51
PROVIDERS: ATTEND Internal Medicine Cardiovascular Disease
DX: I48.91 Unspecified atrial fibrillation (principal); I34.0 Nonrheumatic mitral (valve) insufficiency; I07.1 Rheumatic tricuspid insufficiency; I35.8 Other nonrheumatic aortic valve disorders; E78.00 Pure hypercholesterolemia, unspecified; E03.9 Hypothyroidism, unspecified; K21.9 Gastro-esophageal reflux disease without esophagitis; J45.909 Unspecified asthma, uncomplicated; Z85.3 Personal history of malignant neoplasm of breast; Z92.3 Personal history of irradiation; Z88.0 Allergy status to penicillin; Z88.1 Allergy status to other antibiotic agents; Z88.5 Allergy status to narcotic agent; Z91.011 Allergy to milk products; Z79.01 Long term (current) use of anticoagulants; Z79.899 Other long term (current) drug therapy
CPT/HCPCS: 92960; 93005; 93010; 93312; J2704

== ENCOUNTER 2017-10-13 13:15 | Outpatient (CLI) | payer MEDICARE, OTHER ==
--- NOTE | 2017-10-13 15:30 | RAD ---
TWO VIEW CHEST: HISTORY: Dyspnea. COMPARISON: 07/14/17. FINDINGS: Cardiomegaly. Mild vascular engorgement without overt congestion or edema. Evidence of small bilate ral effusions blunting the posterior gutters. There is wedging of the midthoracic vertebrae which is stable. IMPRESSION: Cardiomegaly and mild vascular engorgement. No acute process or interval change. POS: [facility]
== END 2017-10-13 13:16 | disposition home or self-care (01) ==
LOC: RAD 13:15
PROVIDERS: ATTEND Internal Medicine Critical Care Medicine
DX: R06.00 Dyspnea, unspecified (principal); I51.7 Cardiomegaly; J81.1 Chronic pulmonary edema
CPT/HCPCS: 71046

== ENCOUNTER 2017-10-17 14:00 | Outpatient (CLI) | payer MEDICARE, OTHER | END 2017-10-17 14:01 | disposition home or self-care (01) | LOC: BICRAD 14:00 | PROVIDERS: ATTEND Family Medicine | DX: M54.9 Dorsalgia, unspecified (principal); M81.0 Age-related osteoporosis without current pathological fracture | CPT/HCPCS: 72072 ==

== ENCOUNTER 2017-12-03 15:49 | Outpatient (CLI) | payer MEDICARE, OTHER ==
--- NOTE | 2017-12-03 17:37 | MRI ---
MRI LEFT KNEE WITHOUT CONTRAST: 12/03/17 HISTORY: Left knee pain, [id number]. COMPARISON: None. FINDINGS: MEDIAL MENISCUS: Intact. LATERAL MENISCUS: Intact. ACL, PCL, MCL and LCL are all intact. EXTENSOR MECHANISM: Quadriceps tendon and patella and patellar tendon are intact. Mild superolateral Hoffa's pad edema. Trochlear groove angle is increased. Mild lateral subluxation o f the patella. CARTILAGE: PATELLOFEMORAL COMPARTMENT: There is large area of cartilage delamination of the lateral patellar facets measuring 15 mm in trans verse x 3 mm in craniocaudad dimension. This is not displaced. MEDIAL COMPARTMENT: Low grade thinning. LATERAL COMPARTMENT: Intact. IMPRESSION: 1. 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 2. Large 15 x 3 mm focal area of chondral delamination along the lateral patellar facet which is not displaced. No underlying reactive marrow changes. Code T POS: [facility]
== END 2017-12-03 15:50 | disposition home or self-care (01) ==
LOC: MRI 15:49
PROVIDERS: ATTEND Orthopaedic Surgery
DX: M25.562 Pain in left knee (principal); S83.012A Lateral subluxation of left patella, initial encounter

== ENCOUNTER 2018-01-14 11:48 | Outpatient (CLI) | payer MEDICARE, OTHER ==
[2018-01-14 14:21] LABS: Hemoglobin 13.4 g/dL (12.0-16.0); Mean Corpuscular HGB CONC 34.3 g/dL (32.0-36.0); Mean Corpuscular Hemoglobin 32.8 pg (27.0-31.0); Mean Corpuscular Volume 95.6 fl (81.0-99.0); Mean Platelet Volume 7.5 fL (7.4-10.4); Platelet Count 226 thou/uL (130-400); RBC Distribution Width 12.7 % (11.5-14.5); Red Blood Cell (RBC) Count 4.08 mill/uL (4.20-5.40); White Blood Cell (WBC) Count 8.6 thou/uL (4.8-10.8)
[2018-01-14 14:27] LABS: INR-International Normal Ratio 2.5; PTT 34.6 SEC (22.9-36.1); Prothrombin Time 27.7 SEC (12.0-14.7)
[2018-01-14 14:52] LABS: Anion Gap 16 mmol/L (10-20); BUN (Urea Nitrogen) 29 mg/dL (9.8-20.1); Calc. Creatinine Clearance 0 mL/min (70-130); Calcium 9.6 mg/dL (7.8-10.44); Carbon Dioxide 25 mmol/L (23-31); Chloride 100 mmol/L (98-107); Estimated GFR-MDRD 35; Glucose 105 mg/dL (83-110); Potassium 4.4 mmol/L (3.5-5.1); Sodium 137 mmol/L (136-145)
--- NOTE | 2018-03-11 17:49 | EKG ---
Test Reason : Blood Pressure : / mmHG Vent. Rate : 138 BPM Atrial Rate : 127 BPM P-R Int : 000 ms QRS Dur : 084 ms QT Int : 294 ms P-R-T Axes : 000 060 047 degrees QTc Int : 445 ms Atrial fibrillation with rapid ventricular response Abnormal ECG When compared with ECG of 21-AUG-2017 08:16, Atrial fibrillation has replaced Sinus rhythm Vent. rate has increased BY 54 BPM Confirmed by BASILIO ALCANTAR M.D. ([id number]) on 03/11/2018 5:49:38 PM Referred By: FRIDA Confirmed By:BASILIO ALCANTAR M.D.
== END 2018-01-14 11:49 | disposition home or self-care (01) ==
LOC: LABBT 11:48
PROVIDERS: ATTEND Internal Medicine Cardiovascular Disease
DX: Z01.818 Encounter for other preprocedural examination (principal); I48.91 Unspecified atrial fibrillation
CPT/HCPCS: 80048; 85027; 85610; 85730; 93005; 93010

== ENCOUNTER 2018-01-16 10:03 | Day surgery (SDC) | payer MEDICARE, OTHER ==
[2018-01-14 12:46] VITALS: BMI 22.6
[2018-01-16] MEDS ORDERED: Midazolam HCl 2 mg/2 ml Vial ONE (11:16)
[2018-01-16] MEDS ORDERED: Fentanyl 100 MCG/2 ML VIAL ONE (11:16)
--- NOTE | 2018-01-16 14:23 | MRI ---
THORACIC SPINE MRI WITHOUT CONTRAST: HISTORY: Radicular pain. Previous breast cancer. Right mastectomy. COMPARISON: MRI thoracic spine 07/18/03. TECHNIQUE: MRI thoracic spine is performed without intravenous Gadolinium administration. Multisequential, mult iplanar imaging is performed. FINDINGS: There is appropriate T1 marrow signal intensity of the thoracic vertebrae. No significant change in vertebral body height. There is a remote moderate compression fracture involving the mid body of T7 and a mild compression fracture involving the superior end plate of T11. No STIR hyperintensity to i mply edema or an acute fracture. There is appropriate signal intensity in the visualized mediastinal structures. Atelectasis changes of the lung parenchyma are suspected. The visualized solid organs are unremarkable. Conus medullaris terminates at T12-L1 disk space level. Again identified is a central T2 hyperintensity involving the cervical cord. This T2 hyperintensity measures 3 mm anterior posterior x 3 mm mediolateral. This abnormal signal intensity starts at the T 6 vertebral body level and extends inferiorly to the superior end plate of T10. The overall degree i n distribution is similar to the previous examination. There is minimal associated cord expansion. These findings are unchanged when compared to the previous examination. The imaging features are mos t compatible with a syrinx. The previous examination did have a postcontrast sequence which does not demonstrate any abnormal enhancement. Note is made of a perineal sleeve cyst in the left neural foramen at T9-T10. Small perineal sleeve c yst in the right neural foramen at T8-T9 is noted. There is no significant central canal stenosis or foraminal narrowing. Previously noted atypical hemangioma at the T5 vertebral body is slightly less evident on the current exam but grossly stable. IMPRESSION: 1. No significant central canal stenosis or foraminal narrowing. 2. Stable central thoracic cord T2 hyperintensity. Given long-term stability, a syrinx is favored. POS: [facility]
== END 2018-01-16 14:22 | disposition home or self-care (01) ==
LOC: SDC/OP 10:03
PROVIDERS: ATTEND Nurse Practitioner Family
DX: M54.14 Radiculopathy, thoracic region (principal); Z79.01 Long term (current) use of anticoagulants; Z79.899 Other long term (current) drug therapy; Z88.0 Allergy status to penicillin; Z88.5 Allergy status to narcotic agent; Z88.1 Allergy status to other antibiotic agents; Z91.011 Allergy to milk products
CPT/HCPCS: 72146; J2250; J3010

== ENCOUNTER 2018-01-22 06:04 | Observation (INO) | payer MEDICARE, OTHER ==
[2018-01-22] MEDS ORDERED: Heparin 10,000 UNITS/1 ML VIAL ONE ×2 (06:44→10:15)
[2018-01-22 06:55] LABS: PTT 31.5 SEC (22.9-36.1); Prothrombin Time 23.7 SEC (12.0-14.7)
[2018-01-22] MEDS ORDERED: Fentanyl 100 MCG/2 ML VIAL ONE ×2 (08:12→10:30)
[2018-01-22] MEDS ORDERED: Isoproterenol 0.2 MG/1 ML AMP ONE ×2 (10:15→13:05)
[2018-01-22] MEDS ORDERED: Protamine Sulfate 50 MG/5 ML VIAL ONE (11:24)
[2018-01-22] MEDS ORDERED: Furosemide 40 MG/4 ML VIAL ONE (11:47)
--- NOTE | 2018-01-22 11:57 | OP ---
DATE OF PROCEDURE: 01/22/2018 PROCEDURE: LINQ injectable monitor. CLINICAL INDICATION: History of atrial fibrillation, ablated for assistance in monitoring of atrial fibrillation progress. DRAG OUT WORKER: Abdirahman Armendariz M.D. ASA CLASSIFICATION: 3. ANESTHESIA: General endotracheal anesthesia for a previous procedure. ADDITIONAL CARDIAC MEDICATIONS: None. ESTIMATED BLOOD LOSS: Less than 5 mL. TOTAL FLUOROSCOPY TIME: None. ACUTE COMPLICATIONS: None. METHODS: The left chest was prepped and draped in usual sterile fashion using the standard injection tool. The LINQ was placed in the fifth intercostal space and was sutured with a 4-0 Monocryl. Derm abond was applied. IMPRESSION: Successful LINQ injection in the left chest. RECOMMENDATION: Antibiotic prophylaxis.
--- NOTE | 2018-01-22 11:57 | OP ---
DATE OF PROCEDURE: 01/22/2018 PROCEDURES: 1. Comprehensive EP testing with 3D mapping and ablation of atrial fibrillation. 2. Intracardiac echocardiography. 3. Transseptal catheterization x2. CLINICAL INDICATION: Longstanding persistent atrial fibrillation. FRANCHISE CONSULTANT: Abdirahman Armendariz M.D. ASA CLASSIFICATION: 3. ANESTHESIA: General endotracheal anesthesia per Anesthesiology. ADDITIONAL CARDIAC MEDICATIONS: Total heparin given 14,000 units. Total protamine given 40 mg. Car diac medication infusion 10 mcg per minute infusion. ESTIMATED BLOOD LOSS: Less than 10 mL. TOTAL FLUOROSCOPY TIME: Zero. TOTAL RF TIME: 71 minutes 15 seconds. ACUTE COMPLICATIONS: None apparent. METHODS: After informed consent was obtained, the patient was taken to the EP lab in fasting state. Both groins were prepped and draped using ultrasound guidance. The right and left femoral veins wer e accessed and wires inserted into the central venous system. A wire was used to place two 8-Salvadorean sheaths in the right groin an 11- and 8-Salvadorean sheaths in the left groin. All 8-Salvadorean sheaths were then replaced by long sheaths for catheter stability. An intracardiac echo probe placed in left groi n, advanced to the right atrium and the right ventricle for imaging. A circular and ablation cathete r placed in right groin, advanced up to the right atrium. A 3D map was obtained to the right atrium and the coronary sinus. A 20-pole catheter was placed in left groin and advanced up to the coronary sinus. Patient was then fully anticoagulated and transseptal catheterization was performed on 2 occa sions. A 3D map was obtained of the left atrium and ablation was delivered at high energy to complet emily isolate the posterior wall and all 4 pulmonary veins. Extensive ablation was also performed insi de the coronary sinus and on the roof on the left atrium adjacent to the coronary sinus. With this, the patient's arrhythmia organized into an atypical flutter, but did not convert. A 200-joule shock was delivered restoring sinus rhythm. After an observation period and ICE for general challenge, iso lation was confirmed. Catheter was then removed. Sheaths were pulled. Hemostasis was achieved with collagen closure device. RESULTS: 1. Baseline intervals, HV interval 60 milliseconds. 2. Atrial function. The patient had severe scarring seen, requiring increased gain in all the mappi ng and ablation catheters. Pulmonary vein isolation was performed of the antrum on all veins as well as the posterior wall of the left atrium. Attempted isolation, but ultimately debulking of the rusty nary sinus was also performed as well as the tissue on the roof and on the lateral wall surrounding t he left atrial appendage. The appendage was not isolated. 3. Ablation details. A total of 71 minutes 15 seconds of RF were delivered with a [employer] [place] open, irrigated ablation catheter. IMPRESSION: Successful PV isolation and posterior wall isolation, roof and lateral wall isolation, a nd debulking of the coronary sinus. RECOMMENDATION: Continue with anticoagulation for a minimum of 3 months.
[2018-01-22] MEDS ORDERED: Propofol 500 MG/50 ML VIAL ONE (13:12)
[2018-01-22] MEDS ORDERED: Dexamethasone 20 MG/5 ML VIAL ONE (13:59)
[2018-01-22] MEDS ORDERED: Succinylcholine Chloride 20 MG/ML 10 ml SYRINGE FS ONE (13:59)
[2018-01-22] MEDS ORDERED: Lidocaine 1% PF 5 ML VIAL ONE (13:59)
[2018-01-22] MEDS ORDERED: Heparin 10,000 UNITS/ 10 ML VIAL ONE (13:59)
[2018-01-22] MEDS ORDERED: PROPOFOL 200 MG/20 ML VIAL ONE (13:59)
[2018-01-22] MEDS ORDERED: Benzonatate 100 MG CAP PO PRN (14:08)
[2018-01-22] MEDS ORDERED: Pepto Bismol Chew TAB PO PRN (14:09)
[2018-01-22] MEDS ORDERED: Loratadine/Pseudoephedrine 10/240 mg Tablet PO PRN (14:10)
[2018-01-22] MEDS ORDERED: Ipratropium Bromide 0.03% Nasal Inhaler 30 ml Bottle EA NARE PRN (14:15)
[2018-01-22] MEDS ORDERED: Silver Sulfadiazine 1% Cream 50 GM JAR TOP PRN (14:20)
[2018-01-22] MEDS ORDERED: diphenhydrAMINE 25 MG CAP PO PRN (14:20)
[2018-01-22] MEDS ORDERED: traMADol HCl 50 MG TAB PO PRN (14:20)
[2018-01-22] MEDS ORDERED: Mag-Al 1200 mg/1200 mg/30 ML UDCUP PO PRN (14:20)
[2018-01-22] MEDS ORDERED: Bisacodyl 10 MG SUPP PR PRN (14:20)
[2018-01-22] MEDS ORDERED: Nitroglycerin 0.4 MG TAB (25 Tab Bottle) SL PRN (14:20)
[2018-01-22] MEDS ORDERED: Temazepam 15 MG CAP PO PRN (14:20)
[2018-01-22] MEDS ORDERED: Bisacodyl 5 MG TAB PO PRN (14:20)
[2018-01-22] MEDS ORDERED: Ondansetron HCl/PF 4 MG/2 ML Vial IVP PRN (14:20)
[2018-01-22 14:26] VITALS: BMI 25.8
[2018-01-22] MEDS ORDERED: Warfarin Sodium 2 MG TAB PO SCH ×2 (17:00)
[2018-01-22] MEDS: Furosemide 40 MG/4 ML VIAL SLOW IVP SCH (17:39)
[2018-01-22] MEDS: Acetaminophen 325 MG TAB PO PRN (19:53)
[2018-01-22] MEDS: Potassium Chloride 20 MEQ TAB PO SCH (19:54)
[2018-01-22] MEDS ORDERED: Zolpidem Tartrate 5 MG TAB PO SCH (21:00)
[2018-01-22] MEDS ORDERED: Atorvastatin Calcium 40 MG TAB PO SCH (21:00)
[2018-01-23] MEDS: Acetaminophen 325 MG TAB PO PRN (02:32)
[2018-01-23] MEDS: Furosemide 40 MG/4 ML VIAL SLOW IVP SCH (05:36)
[2018-01-23] MEDS ORDERED: Levothyroxine Sodium 75 MCG TAB PO SCH (06:00)
[2018-01-23] MEDS ORDERED: Escitalopram Oxalate 20 mg Tablet PO SCH (09:00)
[2018-01-23] MEDS ORDERED: Lisinopril 2.5 MG TAB PO SCH (09:00)
[2018-01-23] MEDS ORDERED: Furosemide 40 MG TAB PO SCH (09:00)
[2018-01-23] MEDS ORDERED: Loratadine 10 MG TAB PO SCH (09:00)
[2018-01-23] MEDS: Potassium Chloride 20 MEQ TAB PO SCH (09:40)
[2018-01-23 11:45] VITALS: BP 103/50; TEMP 98.4
[2018-01-23] MEDS ORDERED: traMADol HCl 50 MG TAB PO PRN (12:27)
[2018-01-23] MEDS ORDERED: Metoprolol Tartrate 25 MG TAB PO SCH ×2 (12:30→21:00)
--- NOTE | 2018-01-23 13:44 | DIS ---
DATE OF ADMISSION: 01/22/2018 DATE OF DISCHARGE: 01/23/2018 ADMITTING DOCTOR: Abdirahman Armendariz M.D. CONDITION AT DISCHARGE: Stable. FINAL DIAGNOSIS: Longstanding persistent atrial fibrillation. PROCEDURES PERFORMED: Comprehensive EP testing with 3D mapping and ablation of atrial fibrillation a s well as implantable loop recorder injection. HISTORY OF PRESENT ILLNESS: Ms. Cooney is a very pleasant lady with a history of longstanding persiste nt atrial fibrillation. She has not been significantly sensitive to her palpitations or arrhythmias in the past. Her echo was initially discovered in 04/2017 when she was admitted for [id number]. She has failed cardioversion in the past and was admitted on 01/22/2018 for an elective outpati ent procedure to ablate her atrial fibrillation. She is on Coumadin for anticoagulation. During her ablation, a severe scarring was seen. Pulmonary venous isolation was performed in the antrum and on veins as well as the posterior wall of the left atrium. We attempted isolation, but ultimately debu lking of the coronary sinus was performed as well as the tissue on the roof and lateral wall surround ing left atrial appendage. The left atrial appendage was not isolated. She received a total of 71 m inutes 15 seconds of RF lesions delivered. Ultimately, successful PVI and posterior wall isolation r leonid and lateral wall isolation and debulking of the coronary sinus. She did have some transient hypo tension postoperatively overnight with systolic pressures documented at 77/41 at the lowest. She was asymptomatic with this. Since then, her blood pressure has stabilized nicely. She has been up ambu lating without difficulty. Her groin sites are stable without hematoma or complication. She does no t exhibit signs of fluid overload. She does not have swelling of her extremities. There are no crac kles heard in her lung mei. There is no jugular venous distention and hepatojugular reflux is neg ative. She does not report any shortness of breath. On monitor, she is largely maintaining sinus rh ythm, which is detected on a 12-lead EKG this morning. Sinus rates have been somewhat elevated susta ining an 80-90 beat per minute range. That being said, her home metoprolol dose had not been restart ed as an inpatient. It is not listed on her home med rec initially. She has had occasional PACs dennys etimes progressing into brief PAT runs with rates up to 170. Episodes are nonsustained and less than 6-10 seconds in duration. She has been asymptomatic with these as well. Following her ablation, bonnie garcia also had a [employer] Reveal LINQ, implantable loop recorder injected for continued monitoring harini villasenor her recovery post-ablation. The incision site along her left sternal border is well approximated with slight bruising, but no signs of infection or complication. She reports it is nontender. DISCHARGE MEDICATIONS: We will continue her home medications. She is to continue anticoagulation wi thout interruption. Prescriptions have been sent for Protonix, potassium, Lasix, and Carafate as par t of her recovery. DISCHARGE INSTRUCTIONS: No lifting more than 25 pounds for 1 week. No soaking baths for 1 week. Li ght activity, then in 1 week may advance as tolerated. She is to follow up in clinic on 03/04/2018 a t 12:00 and follow a heart healthy diet. Recommend monitoring blood pressure and heart rate at home as well as monitoring for signs of heart failure and fluid overload.
[2018-01-23] MEDS ORDERED: Mirtazapine 15 MG TAB PO SCH (21:00)
[2018-01-24] MEDS ORDERED: Multivitamin W/ Minerals 1 TAB PO SCH (09:00)
[2018-01-26] MEDS ORDERED: Warfarin Sodium 1.25 MG HALF.TAB PO SCH (17:00)
== END 2018-01-23 14:01 | disposition home or self-care (01) ==
LOC: CCL 06:04 → 2SW 09:00
PROVIDERS: ADMIT Internal Medicine Cardiovascular Disease; ATTEND Internal Medicine Cardiovascular Disease
PROC: 0JH602Z Insertion of Monitoring Device into Chest Subcutaneous Tissue and Fascia, Open Approach (ICD-10-PCS; principal; 2018-01-22)
DX: I48.1 Persistent atrial fibrillation (principal); Z88.0 Allergy status to penicillin; Z88.5 Allergy status to narcotic agent; Z79.899 Other long term (current) drug therapy; Z88.1 Allergy status to other antibiotic agents; Z88.8 Allergy status to other drugs, medicaments and biological substances; Z79.01 Long term (current) use of anticoagulants
CPT/HCPCS: 33282; 76942; 85347 ×2; 85610; 85730; 93005 ×3; 93613; 93623; 93656; 93662; 96374; C1731; C1732 ×3; C1759; C1764; C1769; G0378; 93010; A4216; J1100; J1644; J1940; J2001; J2704; J2720; J3010

== ENCOUNTER 2018-05-04 14:38 | Outpatient (CLI) | payer MEDICARE, OTHER ==
--- NOTE | 2018-05-04 17:11 | RAD ---
PA AND LATERAL CHEST: HISTORY: A 72-year-old female with a history of dyspnea. FINDINGS: There is a ileal loop recorder in the left breast. Cardiomegaly with bilateral hyperinflation and ch ronic lung changes. Stable vertebral body collapse of one of the mid thoracic vertebral bodies. Min imal chronic appearing pleural and parenchymal changes in the mid lung zones and biapical pleural thi ckening. Postop right mastectomy. IMPRESSION: 1. Cardiomegaly with hyperinflation and chronic lung changes. 2. Loop recorder in the left breast. 3. Status post right mastectomy. 4. Stable compressed mid thoracic vertebral body. POS: [facility]
== END 2018-05-04 14:39 | disposition home or self-care (01) ==
LOC: RAD 14:38
PROVIDERS: ATTEND Internal Medicine Critical Care Medicine
DX: R06.00 Dyspnea, unspecified (principal); I51.7 Cardiomegaly; R91.8 Other nonspecific abnormal finding of lung field; M48.54XD Collapsed vertebra, not elsewhere classified, thoracic region, subsequent encounter for fracture with routine healing; Z90.11 Acquired absence of right breast and nipple; Z95.818 Presence of other cardiac implants and grafts
CPT/HCPCS: 71046

== ENCOUNTER 2018-05-16 21:50 | Emergency (ER) | payer MEDICARE, OTHER | END 2018-05-16 22:35 | disposition home or self-care (01) | LOC: ERS 21:50 | DX: S50.11XA Contusion of right forearm, initial encounter (principal); I48.91 Unspecified atrial fibrillation; E78.5 Hyperlipidemia, unspecified; Z79.01 Long term (current) use of anticoagulants; W01.0XXA Fall on same level from slipping, tripping and stumbling without subsequent striking against object, initial encounter | CPT/HCPCS: 99283 ==

== ENCOUNTER 2019-08-11 17:17 | Inpatient (IN) | payer MEDICARE, OTHER ==
[~2019-08-11 17:17] MED LIST: Iopamidol-370 76% 500 ML 1 ML ONE
--- NOTE | 2019-08-11 17:47 | RAD ---
EXAM: Portable chest PROVIDED CLINICAL HISTORY: Cough COMPARISON: 05/04/2018 FINDINGS: Cardiac and mediastinal silhouette is unchanged in appearance. Stable blunting of the left costophren ic angle. No focal consolidation or pneumothorax evident. IMPRESSION: No evidence for an acute cardiopulmonary process.
[2019-08-11 18:12] LABS: #Lymphocytes 0.8 thou/uL (1.20-3.40); #Monocytes 0.5 thou/uL (0.11-0.59); #Neutrophils 4.2 thou/uL (1.40-6.50); %Basophils 0.3 % (0.0-1.0); %Eosinophils 0.1 % (0.0-10.0); %Lymphocytes 13.7 % (21.0-51.0); %Monocytes 9.6 % (0.0-10.0); %Neutrophils 76.2 % (42.0-75.0); Hemoglobin 12.9 g/dL (12.0-16.0); Mean Corpuscular HGB CONC 34.5 g/dL (32.0-36.0); Mean Corpuscular Hemoglobin 31.4 pg (27.0-31.0); Mean Platelet Volume 8.4 fL (7.4-10.4); Platelet Count 128 thou/uL (130-400); RBC Distribution Width 13.4 % (11.5-14.5); Red Blood Cell (RBC) Count 4.11 mill/uL (4.20-5.40); White Blood Cell (WBC) Count 5.5 thou/uL (4.8-10.8)
[2019-08-11 18:22] LABS: Platelet Morphology Comment Appears Decreased; RBC Morphology Normal
[2019-08-11 18:36] LABS: ALT (SGPT) 14 U/L (8-55); AST (SGOT) 35 U/L (5-34); Albumin 3.9 g/dL (3.4-4.8); Alkaline Phosphatase 109 U/L (40-110); Anion Gap 15 mmol/L (10-20); BUN (Urea Nitrogen) 11 mg/dL (9.8-20.1); Bilirubin, Total 0.3 mg/dL (0.2-1.2); Calc. Creatinine Clearance 0 mL/min (70-130); Calcium 9.1 mg/dL (7.8-10.44); Carbon Dioxide 20 mmol/L (23-31); Chloride 100 mmol/L (98-107); Estimated GFR-MDRD 61; Globulin 3.6 g/dL (2.4-3.5); Glucose 116 mg/dL (83-110); Protein, Total 7.5 g/dL (6.0-8.3); Sodium 131 mmol/L (136-145)
--- NOTE | 2019-08-11 19:58 | CT ---
EXAM: CT pulmonary angiogram with IV contrast and 3-D MIP reconstructions PROVIDED CLINICAL HISTORY: Cough COMPARISON: None FINDINGS: There is no evidence for central or segmental pulmonary embolus. Prominence of the main pulmonary art lee segment suggesting elevated pulmonary arterial pressures. The heart is enlarged. The lungs are free of significant opacity. Subsegmental atelectasis and/or scarring at the lateral ma rgin of the lingula is demonstrated. No pleural fluid or pneumothorax apparent. No evidence for thoracic lymph node enlargement. The airway appears patent and of normal caliber. The visualized portions of the upper abdomen demonstrate no acute findings. Gallstones are seen. The osseous structures demonstrate no concerning lytic or blastic lesions. Status post right mastectomy. IMPRESSION: No evidence for central or segmental pulmonary embolus.
[2019-08-11] MEDS ORDERED: Aspirin Chewable 81 MG TAB ONE ×2 (20:39)
--- NOTE | 2019-08-11 21:03 | PDOC.FPRHP ---
- History of Present Illness Chief Complaint: Cough, dyspnea History of Present Illness: PCP: Mara Krista Cooney is a 73 year old F with a PMH of A fib s/p Ablation, Hx of aortic valve replacement, HTN, HLD who presented to the ED with a 1 wk history of productive cough and dyspnea. States that she went and stayed with friends over holidays, who had cats and dogs, and thats when her symptoms began. Since that time, symptoms have worsened. Developed subjective fever, chills this morning. Associated decreased appetite over the last couple days and weakness. She has no history of heart attacks or stents. Denies any chest pain, n/v, diarrhea, abdominal pain, vision changes, palpitations, LE edema. In the ED, she was given 2 L NS, Duoneb, and aspirin. Had CTA chest in ED, negative for PE and PNA. CXR was negative. - Allergies/Adverse Reactions Allergies Allergy/AdvReac Type Severity Reaction Status Date / Time doxycycline Allergy Severe Stomach Verified 01/14/18 12:46 Ache morphine Allergy Severe convulsions Verified 01/14/18 12:46 Penicillins Allergy Severe Anaphylaxis Verified 01/14/18 12:46 lactose AdvReac GI upset Verified 01/14/18 12:46 - Home Medications Medication Instructions Recorded Confirmed Type Atorvastatin Calcium [Lipitor] 40 mg PO HS 04/19/17 08/11/19 History Escitalopram Oxalate [Lexapro] 20 mg PO QAM 04/19/17 08/11/19 History Levocetirizine Dihydrochloride 5 mg PO DAILY 04/19/17 08/11/19 History Mirtazapine [Remeron] 15 mg PO HS #30 tab 04/29/17 08/11/19 Rx Multivit, Therapeutic [Theragran] 1 tab PO DAILY #30 tab 04/29/17 08/11/19 Rx Pantoprazole [Protonix] 40 mg PO DAILY #30 tab 04/29/17 08/11/19 Rx Levothyroxine Sodium 75 mcg PO QAM 06/03/17 08/11/19 History Ipratropium [place] [Ipratropium 2 spray EA NARE BID PRN 08/19/17 08/11/19 History [place] 0.03% Nasal [place]] Potassium Chloride 1 tab PO DAILY 08/19/17 08/11/19 History Lisinopril [Zestril] 2.5 mg PO QAM 01/14/18 08/11/19 History Metoprolol Tartrate [Lopressor] 12.5 mg PO BID 01/14/18 08/11/19 History traMADol HCl [Tramadol HCl] 1 tab PO DAILY PRN 01/14/18 08/11/19 History Aspirin [Ecotrin] 81 mg PO DAILY 08/11/19 08/11/19 History Clopidogrel Bisulfate [Plavix] 75 mg PO DAILY 08/11/19 08/11/19 History Furosemide [Lasix] 20 mg PO DAILY 08/11/19 08/11/19 History Zolpidem Tartrate [Ambien] 10 mg PO HS 08/11/19 08/11/19 History - History PMHx: Hx of A fib s/p Ablation, Hx of aortic valve replacement, HLD, Hypothyroidism, Hx of breast cancer s/p mod rad mastectomy PSHx: Cardiac ablation, Aortic Valve Replacement, mastectomy FHx: noncontributory Social: rare alcohol, no drugs, no smoking - Review of Systems General: reports: fever/chills, weight/appetite/sleep changes, fatigue Eyes: denies: eye pain, vision changes ENT: reports: nasal congestion Respiratory: reports: cough, congestion, shortness of breath Cardiovascular: denies: chest pain, palpitation, edema, orthopnea Gastrointestinal: denies: nausea, vomiting, diarrhea, constipation, abdominal pain Genitourinary: denies: dysuria, polyuria Skin: denies: rashes, lesions Musculoskeletal: denies: pain, tenderness, stiffness Neurological: denies: numbness, syncope, seizure Psychological: denies: anxiety, depression - Vital signs BP: 133/80 HR: 125 RR: 20 Tmax: 98.5 Pox: 95% on RA Wt: 61 kg - Physical Exam Constitutional: NAD, awake, alert and oriented, well developed HEENT: normocephalic and atraumatic, PERRLA, EOMI, conjunctiva clear, normal nasal mucosa, MMM Neck: supple, FROM, no JVD Heart: normal S1/S2, no murmurs/rubs/gallops -Heart: tachycardic Lungs: CTAB, no respiratory distress, no rales/rhonchi -Lungs: mild inspiratory and expiratory wheezes Abdomen: soft, non-tender, bowel sounds present Musculoskeletal: normal structure, normal tone, ROM grossly normal Neurological: no focal deficit, CN II-XII intact, normal sensation Skin: no rash/lesions, good turgor, capillary refill <2 seconds Heme/Lymphatic: no unusual bruising or bleeding, no purpura, no petechia Psychiatric: normal mood and affect, good judgment and insight FMR H&P: Results - Labs Result Diagrams: 08/17/19 04:07 08/17/19 04:07 Lab results: WBC 5.5 thou/uL (4.8-10.8) 08/11/19 18:04 Hgb 12.9 g/dL (12.0-16.0) 08/11/19 18:04 Hct 37.4 % (36.0-47.0) 08/11/19 18:04 MCV 91.0 fL (78.0-98.0) 08/11/19 18:04 Plt Count 128 thou/uL (130-400) L 08/11/19 18:04 Neutrophils % 76.2 % (42.0-75.0) H 08/11/19 18:04 Sodium 131 mmol/L (136-145) L 08/11/19 18:04 Potassium 4.0 mmol/L (3.5-5.1) 08/11/19 18:04 Chloride 100 mmol/L (98-107) 08/11/19 18:04 Carbon Dioxide 20 mmol/L (23-31) L 08/11/19 18:04 BUN 11 mg/dL (9.8-20.1) 08/11/19 18:04 Creatinine 0.90 mg/dL (0.6-1.1) 08/11/19 18:04 Glucose 116 mg/dL (83-110) H 08/11/19 18:04 Calcium 9.1 mg/dL (7.8-10.44) 08/11/19 18:04 Total Bilirubin 0.3 mg/dL (0.2-1.2) 08/11/19 18:04 AST 35 U/L (5-34) H 08/11/19 18:04 ALT 14 U/L (8-55) 08/11/19 18:04 Alkaline Phosphatase 109 U/L (40-110) 08/11/19 18:04 CK-MB (CK-2) 5.0 ng/mL (0-6.6) 08/11/19 18:04 Serum Total Protein 7.5 g/dL (6.0-8.3) 08/11/19 18:04 Albumin 3.9 g/dL (3.4-4.8) 08/11/19 18:04 - EKG Interpretation EKG: NSR, ST elevated in V1 and V2, no reciprocal changes, LVH, LAD - Radiology Interpretation CT scan - chest Status: report reviewed by me (CTA chest showed no PE or PNA) Chest x-ray Status: report reviewed by me (no acute cardiopulmonary findings) FMR H&P: A/P - Problem List (1) NSTEMI (non-ST elevated myocardial infarction) Current Visit: Yes Status: Resolved Code(s): I21.4 - NON-ST ELEVATION ( NSTEMI) MYOCARDIAL INFARCTION (2) S/P TAVR (transcatheter aortic valve replacement) Current Visit: Yes Status: Acute Code(s): Z95.2 - PRESENCE OF PROSTHETIC HEART VALVE (3) GERD (gastroesophageal reflux disease) Current Visit: Yes Status: Acute Code(s): K21.9 - GASTRO-ESOPHAGEAL REFLUX DISEASE WITHOUT ESOPHAGITIS (4) Atrial fibrillation, persistent Current Visit: No Status: Acute Code(s): I48.1 - PERSISTENT ATRIAL FIBRILLATION * DO NOT USE * (5) Elevated troponin Current Visit: No Status: Acute Code(s): R74.8 - ABNORMAL LEVELS OF OTHER SERUM ENZYMES (6) Hypothyroidism Current Visit: No Status: Chronic Code(s): E03.9 - HYPOTHYROIDISM, UNSPECIFIED Qualifiers: Hypothyroidism type: unspecified Qualified Code(s): E03.9 - Hypothyroidism , unspecified - Plan Pt is a 73 yo female who presents for NSTEMI: # NSTEMI Trop elevated 1.4. Pt denies chest pain but has cough x 1 week. Was started on azithromycin. EKG revealed st elevations in v1,v2 without reciprocal changes. No prevoius hx of stent placement. - trend trops - Cards consulted, Dr. Cagle aware of pt and will see in am; appreciate recs. - started therapeutic lovenox, asp - pending TSH # Hx of Cough - pending influenza, CRP, procal # HTN - lopressor started per Dr. Cagle # A-fib - continue home meds - ablation performed by [facility] over Thanksgiving # GERD - cont home meds # Hypothyroid - continue home meds - tsh pending # Echo 08/28 revealed EF 50-55% # Hx of TAVR - performed by [facility] # Hx of breat cancer in remission Fluids: none Diet: NPO VTE: therapeutic lovenox Code: Full Dispo: > 2 midnight stay FMR H&P: Upper Level - Plan Date/Time: 08/11/192101 I, Jorge Alberto Barba MD, have evaluated this patient and agree with findings/plan as outlined by international accounting manager resident. Pertinent changes/additions are listed here. Krista Cooney is a 73 year old F with a PMH of A fib s/p ablation, Hypothyroidism, MVP, Hx of TAVR, Hx of breast CA s/p mod rad mastectomy who presented to the ED with a 1 week hx of productive cough and progressive dyspnea with associated weakness and decreased appetite. Today, pt also developed subjective fever/ chills prompting her to go to the ED. Denies any chest pain, palpitations, abdominal pain/n/v, dysuria. In the ED, vitals were significant for HR in 120s , O2 sat 97% on 2L. Labs showed trop of 1.401, CBC and CMP wnl. CXR showed no acute findings and CTA chest was negative for PE or PNA. EKG showed ST Elevation in V1 and V2, no reciprocal changes, LVH, and LAD. Cardiology, Dr. Cagle, was contacted from ED and recommended therapeutic lovenox and agreed to see patient in the morning. On exam, patient had mild inspiratory and expiratory wheezes, was tachycardic, no murmurs. No LE edema, no elevated JVD. Patient admitted for NSTEMI. Starting therapeutic lovenox, trending cardiac enzymes. Cards consulted from ED. Check TSH, Influenza, Procal. Possible that respiratory illness could be leading to NSTEMI type 2 vs Cardiac etiology. Will follow cardiology recs. Cardiac Cath in 2017 showed normal coronaries and EF of 50-55%. Anticipate hospital stay >48 hours. Please see international accounting manager note above for full h&p, which I have reviewed and agree with. PCP: Mara Code Status: Full Code Addendum - Attending - Attending Attestation Date/Time: 08/11/192209 I personally evaluated the patient and discussed the management with Dr. Walters and Jameson I agree with the History, Examination, Assessment and Plan documented above with any addition or exceptions noted below. Noted to have NSTEMI. Controlled at present. Cards notified. Start Lovenox. Trend trops and EKGs. Noted to have bronchitis as well. Will treat with breathing treatments, azithro , and steroids. Adjust home meds as indicated. Monitor closely. Vivek
[2019-08-11] MEDS ORDERED: Magnesium 2 GM/50 ML BAG (IN WATER) ONE (21:25)
[2019-08-11 21:45] LABS: Troponin I 2.437 ng/mL (< 0.028)
[2019-08-11] MEDS ORDERED: Metoprolol Tartrate 5 MG/5 ML VIAL ONE (21:57)
[2019-08-11] MEDS ORDERED: Enoxaparin Sodium 60 MG/0.6 ML SYRINGE ONE (21:57)
[2019-08-12 00:56] LABS: Troponin I 3.476 ng/mL (< 0.028)
[2019-08-12] MEDS ORDERED: Ipratropium Bromide 0.03% Nasal Inhaler 30 ml Bottle EA NARE PRN (03:01)
[2019-08-12 05:04] LABS: #Lymphocytes 1.1 thou/uL (1.20-3.40); #Monocytes 0.6 thou/uL (0.11-0.59); #Neutrophils 3.5 thou/uL (1.40-6.50); %Basophils 0.9 % (0.0-1.0); %Eosinophils 0.1 % (0.0-10.0); %Lymphocytes 21.5 % (21.0-51.0); %Monocytes 11.8 % (0.0-10.0); %Neutrophils 65.6 % (42.0-75.0); Hemoglobin 11.8 g/dL (12.0-16.0); Mean Corpuscular HGB CONC 32.6 g/dL (32.0-36.0); Mean Corpuscular Hemoglobin 29.6 pg (27.0-31.0); Mean Corpuscular Volume 90.9 fL (78.0-98.0); Platelet Count 138 thou/uL (130-400); RBC Distribution Width 13.6 % (11.5-14.5); Red Blood Cell (RBC) Count 3.97 mill/uL (4.20-5.40); White Blood Cell (WBC) Count 5.3 thou/uL (4.8-10.8)
[2019-08-12 05:32] LABS: Anion Gap 15 mmol/L (10-20); BUN (Urea Nitrogen) 8 mg/dL (9.8-20.1); Calc. Creatinine Clearance 62 mL/min (70-130); Calcium 8.5 mg/dL (7.8-10.44); Carbon Dioxide 18 mmol/L (23-31); Chloride 106 mmol/L (98-107); Estimated GFR-MDRD 71; Glucose 101 mg/dL (83-110); Sodium 135 mmol/L (136-145)
[2019-08-12] MEDS ORDERED: Levothyroxine Sodium 75 MCG TAB PO SCH (06:00)
--- NOTE | 2019-08-12 06:23 | PDOC.FM ---
- Subjective Subjective: Pt c/o cough with pleuritic cp. productive of yellow sputum. Peak trop overnight 3.47. denies further sob. Tele monitoring: sinus tach at rate 110's. 1 degree AVB and BBB. - Objective MAR Reviewed: Yes Vital Signs & Weight: Vital Signs (12 hours) Temp Pulse Resp BP Pulse Ox 08/12/19 04:00 98.7 F 100 18 120/59 L 96 08/11/19 22:40 99.1 F 104 H 18 122/67 96 Weight Weight 63.701 kg Result Diagrams: 08/12/19 04:44 08/12/19 04:44 Phys Exam - Physical Examination Constitutional: NAD HEENT: moist MMs, sclera anicteric Neck: no JVD, full ROM rhonchi present L>R. No respiratory distress. Cardiovascular: no significant murmur, no rub tachycardic. Gastrointestinal: soft, non-tender, no distention Musculoskeletal: pulses present Neurological: non-focal, moves all 4 limbs Psychiatric: normal affect, A&O x 3 Skin: no rash, normal turgor, cap refill <2 seconds Dx/Plan (1) NSTEMI (non-ST elevated myocardial infarction) Code(s): I21.4 - NON-ST ELEVATION (NSTEMI) MYOCARDIAL INFARCTION Status: Acute (2) Elevated troponin Code(s): R74.8 - ABNORMAL LEVELS OF OTHER SERUM ENZYMES Status: Acute (3) Major depression, chronic Code(s): F32.9 - MAJOR DEPRESSIVE DISORDER, SINGLE EPISODE, UNSPECIFIED Status : Acute (4) Status post catheter ablation of atrial fibrillation Code(s): Z98.890 - OTHER SPECIFIED POSTPROCEDURAL STATES Status: Acute (5) Hypothyroidism Code(s): E03.9 - HYPOTHYROIDISM, UNSPECIFIED Status: Resolved Qualifiers: Hypothyroidism type: unspecified Qualified Code(s): E03.9 - Hypothyroidism , unspecified (6) HTN (hypertension) Code(s): I10 - ESSENTIAL (PRIMARY) HYPERTENSION Status: Acute - Plan Plan: Pt is a 73 yo female who presents for NSTEMI: # NSTEMI Trop elevated 1.4. Pt denies chest pain but has cough x 1 week. Was started on azithromycin. EKG revealed st elevations in v1,v2 without reciprocal changes. No prevoius hx of stent placement. - Trop: 1.4, 2.437, 3.47, 3.125 - Cards consulted, Dr. Cagle; appreciate recs. - started therapeutic lovenox and asa - TSH 0.1735 # Hx of Cough - Influenza A/B neg, CRP 3.34, procal 0.03 - CXR stable chostophrenic angle blunting. no acute process. # HTN - lopressor started per Dr. Cagle # A-fib - continue home meds - ablation performed by [facility] over giving # GERD - cont home meds # Hypothyroid - Decrease to 50 mcg daily, from 75. As TSH low. - tsh 0.1735 # Echo 08/28 revealed EF 50-55%. HFpEF. # Hx of TAVR - performed by [facility] # Hx of breat cancer in remission Fluids: none Diet: NPO VTE: therapeutic lovenox Code: Full Dispo: > 2 midnight stay
[2019-08-12 07:14] LABS: Critical Call Chem Troponin I RESULT DECREASING; Troponin I 3.125 ng/mL (< 0.028)
[2019-08-12] MEDS ORDERED: Levothyroxine Sodium 50 MCG TAB PO SCH (08:15)
[2019-08-12] MEDS ORDERED: Acetaminophen 325 MG TAB PO SCH (08:45)
[2019-08-12] MEDS: Lisinopril 2.5 MG TAB PO SCH (09:00)
[2019-08-12] MEDS: Aspirin 81 mg Enteric Coated Tablet PO SCH (09:00)
[2019-08-12] MEDS ORDERED: Metoprolol Tartrate 5 MG/5 ML VIAL IV SCH (09:00)
[2019-08-12] MEDS: Potassium Chloride 20 MEQ TAB PO SCH (09:01)
[2019-08-12] MEDS: Loratadine 10 MG TAB PO SCH (09:01)
[2019-08-12] MEDS: Furosemide 20 MG TAB PO SCH (09:01)
[2019-08-12] MEDS: Metoprolol Tartrate 25 MG TAB PO SCH ×2 (09:01→20:29)
[2019-08-12] MEDS: Clopidogrel Bisulfate 75 MG TAB PO SCH (09:01)
[2019-08-12] MEDS: Multivit, Therapeutic 1 TAB PO SCH (09:02)
[2019-08-12] MEDS: Enoxaparin Sodium 60 MG/0.6 ML SYRINGE SC SCH ×2 (09:02→20:29)
[2019-08-12] MEDS: traMADol HCl 50 MG TAB PO PRN (10:34)
[2019-08-12] MEDS ORDERED: Cefdinir 300 MG CAP PO SCH (11:00)
--- NOTE | 2019-08-12 11:27 | PRG ---
DATE OF SERVICE: 08/12/2019 Ms. Cooney is a pleasant, quiet, 73-year-old lady, who presented with productive cough and dyspnea. She attributed this to exposure to some pets earlier this week. In the event, her troponins trended into the range consistent with an NSTEMI. Cardiology has been consulted and will likely take her for catheterization later today, although we are awaiting their consultation and input. Clinically, Ms. Cooney currently is completely stable. She is not having any shortness of breath. She is not having any chest discomfort. Her troponins started out at 1.401 and has risen to a peak of 3.476. Further treatment awaits input from Cardiology. Job ID: [id number]
[2019-08-12 18:12] LABS: Critical Call Chem Troponin I RESULT DECREASING
[2019-08-12 18:38] LABS: CKMB 9.1 ng/mL (0-6.6)
[2019-08-12] MEDS: Cefdinir 300 MG CAP PO SCH (20:28)
[2019-08-12] MEDS: Atorvastatin Calcium 40 MG TAB PO SCH (20:29)
[2019-08-12] MEDS: Zolpidem Tartrate 5 MG TAB PO SCH (20:29)
[2019-08-12] MEDS ORDERED: Acetaminophen 325 MG TAB PO PRN (20:59)
[2019-08-12] MEDS ORDERED: Mirtazapine 15 MG TAB PO SCH (21:00)
--- NOTE | 2019-08-12 21:12 | CON ---
DATE OF CONSULTATION: PRIMARY CARE DOCTOR: Dr. Terry. PRIMARY NURSE TRANSPLANT: Dr. Leilani Cagle. REFERRING DOCTOR: [facility]. REASON FOR CARDIOLOGY CONSULTATION: Non-STEMI. HISTORY OF PRESENT ILLNESS: Ms. Cooney is a very present 73-year-old female with a significant history of severe aortic valve stenosis status post TAVR in June 2019, paroxysmal atrial fibrillation with status post cardioversion in August 2017, breast cancer with status post chemotherapy and radiation therapy, asthma , and history of PE in the past. The patient was doing relatively well after the patient had TAVR procedure in June 2019. She followed up with Dr. Cagle' office in July 2018 and at that time, she denied any chest pain, dizziness, shortness of breath, or any other cardiac complaints. Around [place] time, she visited her daughter's house where she exposed to tons of animals, people, and at that time , the patient's allergies aggravated and she started having coughing with severe nasal drop, which caused her shortness of breath at that time. Also, the patient had fallen and hit her knees, left chest, and bilateral lower extremities around August 05 to . Due to those reasons, the patient decided to present to the emergency department for further evaluation and treatment and was found to have sinus tachycardia with heart rate in the 110s to 120s with elevated troponins. The patient denied palpitation, chest pain, or any other cardiac complaints. Also, the patient's TSH showing hypothyroidism. The patient has underwent cardiac catheterization in April 2017 and also April 2019 with normal coronary arteries. The patient had a last echocardiogram was done at Dr. Cagle' office in February 2019 with EF 55% to 60%, moderate to severe mitral valve regurgitation, severe aortic valve stenosis with ORA 0.6 cm, mild to moderate AI, mild pulmonary insufficiency, and tricuspid regurgitation. The patient underwent atrial fibrillation cardioversion in August 2017. The patient had a LINQ placement in January 2018. PAST MEDICAL HISTORY: Status post breast cancer with chemotherapies and radiation, anemia, asthma, GERD, hypothyroidism, paroxysmal atrial fibrillation status post cardioversion in August 2017, severe aortic valve stenosis. PAST SURGICAL HISTORY: Colectomy for diverticulitis, left carpal tunnel ___, left mastectomy, atrial fibrillation ablation and LINQ placement in January 2018, and left and right cardiac cath in April 2019 with normal coronary arteries, and status post TAVR in June 2019. FAMILY HISTORY: The patient's father has a medical history of congestive heart failure. The patient's mother has a breast cancer and mitral valve prolapse. Maternal grandmother has a history of breast cancer. SOCIAL HISTORY: She is a . She has 2 children, who are living well. She stops smoking when she was in high school. She denies EtOH or illicit drug abuse. ALLERGIES: SHE IS ALLERGIC TO PENICILLIN, MORPHINE, AND DOXYCYCLINE. REVIEW OF SYSTEMS: 12-point review of systems negative unless otherwise mentioned in the HPI. PHYSICAL EXAMINATION: VITAL SIGNS: Blood pressure 109/62, temperature 99.7, pulse 90 to 100 with rhythm sinus tach, respiratory rate 16, O2 saturation 96% with room air. GENERAL: The patient is alert and oriented x4, not in acute distress. HEENT: Normocephalic, atraumatic. EYES: Extraocular muscle movement intact. She wears glasses for reading. ENT AND MOUTH: Oral and nasal mucosa moist without lesion. NECK: Supple. Normal range of motion. No JVD. RESPIRATORY: Clear to auscultate bilaterally. No wheezing or rhonchi noted. CARDIOVASCULAR: Regular rate and rhythm. Normal S1 and S2. No S3 or S4. Did have a murmur in the left upper mediastinal border and lateral wall apart of the left chest. 2+ pulses in bilateral upper and lower extremities. No edema in the lower extremities. Carotid pulses are present without bruit or thrill. ABDOMEN: Soft, nontender. No mass to palpitate. Bowel sounds are present. SKIN: She has bruises on the lateral side of the left chest and bilateral lower extremities. MUSCULOSKELETAL: The patient is able to move all extremities without any difficulty. The patient denied claudication. NEUROLOGIC: The patient is alert and oriented x4, nonfocal. PSYCHIATRIC: The patient's mood is appropriate. IMAGING STUDIES: Chest x-ray shows no evidence of acute cardiopulmonary process. The patient's CT chest and thoracic showed no evidence of central or segmental pulmonary embolism. LABORATORY DATA: WBC 5.3, hemoglobin 11.8, hematocrit 36.1, platelets 138. Sodium 135, potassium 4.0, BUN 31, creatinine 0.79. AST 35, ALT 14. CK-MB is 5.0. Troponin 0.401, 2.437, 3.476, and 3.125. TSH is 0.1735. The patient's heart rate is sinus tach with heart rates 110s to 130s at the ER. ASSESSMENT AND PLAN: 1. Elevated troponin. The patient had a cardiac catheterization in 2016 and in April 2019, showing normal coronary arteries. The patient's troponin level possibly elevated due to status post fall and/or sinus tachycardia. The patient denies any chest pain, heaviness, tightness, nauseated, or any other cardiac complaints at this moment. She has been on aspirin, Plavix, and metoprolol. We would like to continue to monitor on the telemetry. 2. Proximal atrial fibrillation. The patient has been in sinus rhythm. She has a LINQ placement. We would like to interrogate the patient's LINQ to see if the patient has any significant episodes of atrial fibrillation and adjust the patient's medication as appropriate. At this moment, she is on Lovenox 60 mg twice a day. 3. History of aortic valve stenosis, status post TAVR in June 2019. The patient is asymptomatic right now. The patient has had echocardiogram scheduled in October as outpatient. She is on Plavix and aspirin. 4. Moderate to severe mitral valve regurgitation. The patient's condition is stable at this moment. We would like to continue to monitor. 5. History of pulmonary embolism in 2016. The patient's condition is stable at this moment as she has been on aspirin. 6. Hypothyroidism. She is on levothyroxine 50 mcg once a day. Free T3 and free T4 are going to be checked tomorrow morning. Thank you very much for Cardiology Service to participate in care of this patient. We will follow along the patient's care team and make further recommendations as appropriate. Job ID: [id number] MTDD
--- NOTE | 2019-08-12 23:04 | CON ---
DATE OF CONSULTATION: 08/12/2019 INDICATION FOR CONSULTATION: A 73-year-old female who presented to the emergency room with upper respiratory tract infection, possible pneumonia, who had recently undergone a TAVR insertion in [place] earlier this year. Prior to undergoing the TAVR, she had a left and right heart catheterization performed as well as echocardiogram which showed severe aortic valve stenosis, but she also had normal coronary arteries. At this time, she presented after having a productive cough and had some problems with the upper respiratory tract infection with sinus problems and became somewhat confused at home, was not eating very well. She presented to the emergency room and had further evaluation there due to her dyspnea. Apparently, she had cardiac enzymes obtained and these were somewhat abnormal. I cannot explain why, but she had an elevation of troponin I and also the MB. She did have a fall when she was visiting her family in [place], hitting her left chest, but would be unlikely that this will be enough to cause cardiac enzymes to be elevated. Also, her EKG shows sinus rhythm with decreased R-wave progression in V1 and V2, which may be due to left ventricular hypertrophy. At this time, we will continue to monitor her. I will check an echocardiogram to ensure that the valve appears to be stable. It is always a possibility that she could have had a small thrombus or debris formation around the valve site because of some occluded coronary artery, but she denied any chest pain. I would suspect that should she have a heart attack that are ischemia that she would have chest discomfort, but we will compare her old EKGs and will evaluate the echocardiogram when it becomes available. Otherwise, she remains stable. She is feeling better than when she was admitted to the hospital. We will be more than happy to continue to follow the patient with you. For the remainder of the history and physical as well as review of systems, past medical history, family history, medications, allergies and physical examination, please refer to the notes already dictated by my nurse practitioner from my perspective. PHYSICAL EXAMINATION: GENERAL: Reveals an elderly female at this time, who is in no acute distress. She is alert. She is oriented. VITAL SIGNS: Do show that she had a temperature this evening at 101.3 and blood pressure is 108/58, respiratory rate 18, O2 saturation 97%, heart rate is 90 to 108 and still continues to be in sinus rhythm. HEENT: Unremarkable. CHEST: Shows some right basilar rhonchi and rales. I did not hear any abnormal findings. CARDIOVASCULAR: Reveals a regular rate and rhythm. She does not have any significant murmurs, heaves, thrills, bruits or rubs. ABDOMEN: Soft and nontender. She does have some ecchymoses, where she fell in the left breast and had some bruising as well as the right arm. EXTREMITIES: Otherwise did not show any significant clubbing, cyanosis or edema. Neurologically, she appears to be fully intact. LABORATORY DATA: Showed CPK-MB of 9.1. On admission, MB was 5.0. Her troponin I was 1.4 on admission and increased up to 2.4, then 3.4, and then decreased down to 3.125 and now the latest one was 2.8 with an MB of 9.1. This time, we just continue to monitor her. Further recommendations will depend on the results of the echocardiogram as well. If she continues to have any other EKG changes, then she may need to undergo repeat cardiac catheterization despite having normal coronaries earlier this year. ASSESSMENT AND PLAN: 1. She most probably had some pneumonia, bronchitis with upper respiratory tract infection causing some shortness of breath. She also had a fall. 2. Fall with left-sided contusions, hope there were no fractured ribs. She does appear to be still somewhat tender. Chest x-ray, there was no acute findings noted. There was no evidence of pneumonia on the film, but she did have some right basilar rhonchi. 3. History of aortic valve stenosis and successful TAVR placement earlier this year. Again, we will evaluate the echocardiogram. 4. Hypertension, this is under very good control at this time. 5. History of hypothyroidism. This will be dealt with by the primary care service. 6. History of atrial fibrillation. At this time, she is in sinus rhythm. We will continue the medications. Job ID: [id number]
[2019-08-13 05:09] LABS: Anion Gap 14 mmol/L (10-20); BUN (Urea Nitrogen) 14 mg/dL (9.8-20.1); Calc. Creatinine Clearance 51 mL/min (70-130); Calcium 8.7 mg/dL (7.8-10.44); Carbon Dioxide 22 mmol/L (23-31); Chloride 102 mmol/L (98-107); Estimated GFR-MDRD 58; Glucose 76 mg/dL (83-110); Potassium 4.2 mmol/L (3.5-5.1); Sodium 134 mmol/L (136-145)
[2019-08-13] MEDS: Levothyroxine Sodium 50 MCG TAB PO SCH (05:19)
[2019-08-13 05:26] LABS: Free T4 (Free Thyroxine) 1.08 ng/dL (0.70-1.48)
[2019-08-13 05:41] LABS: Band 2 % (5-11); Eosinophils 1 % (0-10); Hemoglobin 11.9 g/dL (12.0-16.0); Lymphocytes 39 % (21-51); MDiff Complete? YES; Mean Corpuscular HGB CONC 32.7 g/dL (32.0-36.0); Mean Corpuscular Hemoglobin 29.4 pg (27.0-31.0); Mean Platelet Volume 9.4 fL (7.4-10.4); Monocytes 12 % (0-10); Neutrophil 46 % (42-75); Platelet Count 136 thou/uL (130-400); RBC Distribution Width 13.6 % (11.5-14.5); Red Blood Cell (RBC) Count 4.06 mill/uL (4.20-5.40); White Blood Cell (WBC) Count 4.1 thou/uL (4.8-10.8)
--- NOTE | 2019-08-13 05:55 | PDOC.FM ---
- Subjective Subjective: t max overnight 101.3 This morning pt developed A fib with RVR. rate 140-150's. She was asymptomatic denies palpitations, CP, SOB. Sitting up talking to me during event. ordered lopressor dose early and EKG. gave 20 mg cardizem push - Objective MAR Reviewed: Yes Vital Signs & Weight: Vital Signs (12 hours) Temp Pulse Resp BP Pulse Ox 08/13/19 03:42 97.9 F 84 18 90/52 L 92 L 08/12/19 20:27 99.4 F 08/12/19 19:36 100.0 F H 08/12/19 19:35 101.3 F H 108 H 18 108/58 L 97 Weight Admit Weight 62.596 kg Weight 63.004 kg I&O: 08/11/19 08/12/19 08/13/19 06:59 06:59 06:59 Intake Total 200 100 Output Total 500 1400 Balance -300 -1300 Result Diagrams: 08/13/19 04:08 08/13/19 04:08 Phys Exam - Physical Examination Constitutional: NAD HEENT: PERRLA, moist MMs, sclera anicteric Neck: no nodes, no JVD, supple, full ROM rhonchi present R>L irregularlly irregular rate 140 Gastrointestinal: soft, non-tender, no distention Musculoskeletal: pulses present Neurological: non-focal, moves all 4 limbs Psychiatric: normal affect, A&O x 3 Skin: normal turgor, cap refill <2 seconds Dx/Plan (1) NSTEMI (non-ST elevated myocardial infarction) Code(s): I21.4 - NON-ST ELEVATION (NSTEMI) MYOCARDIAL INFARCTION Status: Acute (2) Elevated troponin Code(s): R74.8 - ABNORMAL LEVELS OF OTHER SERUM ENZYMES Status: Acute (3) Major depression, chronic Code(s): F32.9 - MAJOR DEPRESSIVE DISORDER, SINGLE EPISODE, UNSPECIFIED Status : Acute (4) Status post catheter ablation of atrial fibrillation Code(s): Z98.890 - OTHER SPECIFIED POSTPROCEDURAL STATES Status: Acute (5) Hypothyroidism Code(s): E03.9 - HYPOTHYROIDISM, UNSPECIFIED Status: Chronic Qualifiers: Hypothyroidism type: unspecified Qualified Code(s): E03.9 - Hypothyroidism , unspecified (6) HTN (hypertension) Code(s): I10 - ESSENTIAL (PRIMARY) HYPERTENSION Status: Acute - Plan Plan: Pt is a 73 yo female who presents for NSTEMI: # NSTEMI Trop elevated 1.4. Pt denies chest pain but has cough x 1 week. Was started on azithromycin. EKG revealed st elevations in v1,v2 without reciprocal changes. No prevoius hx of stent placement. - Trop: 1.4, 2.437, 3.47, 3.125, 2.838 - Cards consulted, Dr. Cagle; appreciate recs. - started therapeutic lovenox and asa - TSH 0.1735 # Hx of Cough, likely dx sinusitis - Influenza A/B neg, CRP 3.34, procal 0.03 - CXR stable chostophrenic angle blunting. no acute process. - started omnicef 300 bid - Tmax 101.3 overnight 08/12/19 # HTN - lopressor started per Dr. Cagle # A-fib w/ rvr morning 08/13/19. - continue home meds - ablation performed by [facility] over - ordered push of cardizem 20 mg push # GERD - cont home meds # Hypothyroid - Decrease to 50 mcg daily, from 75. As TSH low. - tsh 0.1735 - free t4 1.08, t3 2.70 # Echo 08/28 revealed EF 50-55%. # Hx of TAVR - performed by [facility] # Hx of breast cancer in remission Fluids: none Diet: NPO VTE: therapeutic lovenox Code: Full Dispo: > 2 midnight stay
[2019-08-13] MEDS: Metoprolol Tartrate 25 MG TAB PO SCH ×2 (07:07→21:36)
[2019-08-13] MEDS ORDERED: Digoxin 0.5 MG/2 ML AMP SLOW IVP SCH ×2 (09:30→11:30)
[2019-08-13] MEDS: Enoxaparin Sodium 60 MG/0.6 ML SYRINGE SC SCH ×2 (10:16→21:49)
[2019-08-13] MEDS: Fluticasone Propionate Nasal Spray 16 gm Bottle NASAL SCH (10:16)
[2019-08-13] MEDS: Loratadine 10 MG TAB PO SCH (10:17)
[2019-08-13] MEDS: Clopidogrel Bisulfate 75 MG TAB PO SCH (10:18)
[2019-08-13] MEDS: Potassium Chloride 20 MEQ TAB PO SCH (10:18)
[2019-08-13] MEDS: Cefdinir 300 MG CAP PO SCH ×2 (10:18→21:39)
[2019-08-13] MEDS: Multivit, Therapeutic 1 TAB PO SCH (10:18)
[2019-08-13] MEDS: Aspirin 81 mg Enteric Coated Tablet PO SCH (10:18)
[2019-08-13] MEDS: Furosemide 20 MG TAB PO SCH (10:58)
[2019-08-13] MEDS: Lisinopril 2.5 MG TAB PO SCH (10:58)
[2019-08-13] MEDS ORDERED: Sodium Chloride 0.9% 500 ML IV SCH (11:15)
--- NOTE | 2019-08-13 11:33 | PRG ---
DATE OF SERVICE: 08/13/2019 Ms. Cooney redeveloped atrial fibrillation with RVR this morning with a rate in the 140 to 150s. She is slightly hypotensive. We have stopped her Cardizem. We will begin digoxin. She is also being followed by Cardiology, who elected not to re-cath given that she had normal coronaries during a catheterization last year. We will await their input also regarding further management of her recurrent atrial fibrillation with RVR. Job ID: [id number]
[2019-08-13] MEDS: Digoxin 0.5 MG/2 ML AMP SLOW IVP SCH ×2 (12:29→18:11)
--- NOTE | 2019-08-13 12:35 | PDOC.CPN ---
- Subjective Date: 08/13/19 Time: 12:48 Interval history: The pt seen and examined. No overnight events. No cardiac complaints. - Objective Allergies/Adverse Reactions: Allergies Allergy/AdvReac Type Severity Reaction Status Date / Time doxycycline Allergy Severe Stomach Verified 01/14/18 12:46 Ache morphine Allergy Severe convulsions Verified 01/14/18 12:46 Penicillins Allergy Severe Anaphylaxis Verified 01/14/18 12:46 lactose AdvReac GI upset Verified 01/14/18 12:46 Visit Medications: Current Medications Acetaminophen (Tylenol) 650 mg PO Q6H PRN PRN Reason: Mild Pain (1-3) Aspirin (Ecotrin) 81 mg PO DAILY [facility] Last Admin: 08/13/19 10:18 Dose: 81 mg Atorvastatin Calcium (Lipitor) 40 mg PO HS [facility] Last Admin: 08/12/19 20:29 Dose: 40 mg Cefdinir (Omnicef) 300 mg PO BID [facility] Last Admin: 08/13/19 10:18 Dose: 300 mg Clopidogrel Bisulfate (Plavix) 75 mg PO DAILY [facility] Last Admin: 08/13/19 10:18 Dose: 75 mg Digoxin (Lanoxin) 0.25 mg SLOW IVP NOW [facility] Stop: 08/13/19 13:30 Last Admin: 08/13/19 11:57 Dose: 0.25 mg Digoxin (Lanoxin) 0.25 mg SLOW IVP Q6HR [facility] Last Admin: 08/13/19 12:29 Dose: Not Given Digoxin (Lanoxin) 0.125 mg PO DAILY [facility] Enoxaparin Sodium (Lovenox) 60 mg SC 0900,2100 [facility] Last Admin: 08/13/19 10:16 Dose: 60 mg Fluticasone Propionate (Flonase Nasal [place]) 0 gm NASAL DAILY [facility] Last Admin: 08/13/19 10:16 Dose: 1 spr Furosemide (Lasix) 20 mg PO DAILY [facility] Last Admin: 08/13/19 10:58 Dose: Not Given Levothyroxine Sodium (Synthroid) 50 mcg PO 0600 [facility] Last Admin: 08/13/19 05:19 Dose: 50 mcg Lisinopril (Zestril) 2.5 mg PO QAM [facility] Last Admin: 08/13/19 10:58 Dose: Not Given Loratadine (Claritin) 10 mg PO DAILY [facility] Last Admin: 01/03/20 10:17 Dose: 10 mg Metoprolol Tartrate (Lopressor) 12.5 mg PO BID [facility] Last Admin: 08/13/19 07:07 Dose: 12.5 mg Mirtazapine (Remeron) 15 mg PO HS [facility] Last Admin: 08/12/19 20:29 Dose: 15 mg Multivitamins (Theragran) 1 tab PO DAILY [facility] Last Admin: 08/13/19 10:18 Dose: 1 tab Pantoprazole Sodium (Protonix) 40 mg PO DAILY [facility] Last Admin: 08/13/19 10:18 Dose: 40 mg Potassium Chloride (K-Dur) 20 meq PO QAM-WM [facility] Last Admin: 08/13/19 10:18 Dose: 20 meq Tramadol HCl (Ultram) 50 mg PO DAILY PRN PRN Reason: Pain Last Admin: 08/12/19 10:34 Dose: 50 mg Zolpidem Tartrate (Ambien) 10 mg PO [facility] Last Admin: 08/12/19 20:29 Dose: 10 mg Vital Signs & Weight: Vital Signs Temp Pulse Resp BP BP Pulse Ox 08/13/19 11:57 140 H 08/13/19 11:20 98.2 F 138 H 18 90/54 L 97 08/13/19 10:10 132 H 08/13/19 10:08 92/56 L 08/13/19 08:55 98.2 F 130 H 18 91/52 L 67 L 08/13/19 03:42 97.9 F 84 18 90/52 L 92 L Admit Weight 138 lb Weight 136 lb 3 oz - Physical Exam General: alert & oriented x3 HEENT: mucus membranes moist Neck: supple neck Cardiac: irregularly regular Lungs: clear to auscultation Extremities: no edema - Labs Result Diagrams: 08/13/19 04:08 08/13/19 04:08 Troponin/CKMB CK-MB (CK-2) 9.1 ng/mL (0-6.6) H* 08/12/19 17:45 Troponin I 2.838 ng/mL (< 0.028) H* 08/12/19 17:45 - Telemetry Supraventricular conduction: atrial fibrillation - Assessment/Plan Assessment/Plan: 1. Elevated Trop with unknown etiology - possible from s/p fall, Tachycardia, and/or Afib with RVR; s/p LHC in 2017 and 2018 showed normal coronary arteries 2. Afib with RVR - LINQ interrogation showed several episodes of Afib; will start Digoxin; On Metoprolol and Lovenox BID; 3. Hx of Cough, likely dx sinusitis, URI, or PNA? - stable with allergy med hx of severe with s/p TAVR in 2019 - on Plavix and ASA, which will stop and will start Eliquis 5mg BID at discharge 4. HTN - hypotensive; may hold Lisinopril 5. HLD - 6. Hypothyroidism - managed by PCP 7. hx of breast ca MAR reviewed * Echo in 02/2019 with EF 55-60%, mild-mod MR, severe (s/p TAVR in 06/2019), mild-mod AI, mild PI and TR. Echo today indicates EF 40-45%, stable TAVR. Pt. seen and eval. by me. The HR is in the 120's with Afib. She feels a little jittery but otherwise hadn't noticed that she was in Afib. Chest : decreased right base. Irreg/irreg. No edema. Start amiodarone, consult EP. Recheck the EF when in sinus. If the EF is still decreased then consider cardiac cath to eval. the cors for possible obstruction post TAVR. jeevan
--- NOTE | 2019-08-13 16:31 | EKG ---
Test Reason : RHY CHG Blood Pressure : / mmHG Vent. Rate : 150 BPM Atrial Rate : 187 BPM P-R Int : 000 ms QRS Dur : 126 ms QT Int : 326 ms P-R-T Axes : 000 062 247 degrees QTc Int : 515 ms Atrial fibrillation with rapid ventricular response Left ventricular hypertrophy with QRS widening T wave abnormality, consider inferolateral ischemia or digitalis effect Abnormal ECG When compared with ECG of 11-AUG-2019 21:11, (Unconfirmed) Atrial fibrillation has replaced Wide QRS tachycardia Confirmed by DR. Rommel CRESPO ([id number]) on 08/13/2019 4:31:22 PM Referred By: DOMO Confirmed By:DR. Rommel CRESPO
[2019-08-13] MEDS: Amiodarone 450 MG, Admixture Fee 1 EACH in Dextrose 5% in Water 250 ML IVPB SCH (17:05)
--- NOTE | 2019-08-13 20:59 | CON ---
DATE OF CONSULTATION: 08/13/2019 REASON FOR CONSULTATION: Atrial fibrillation with RVR. HISTORY OF PRESENT ILLNESS: Ms. Cooney is a 73-year-old woman, well known to our practice for history of persistent atrial arrhythmias. She has undergone an extensive PVAI with Dr. Jade in January 2018. At that time, severe atrial scarring was noted. She underwent pulmonary vein and posterior wall isolation. We attempted to isolate the coronary sinus, but this was ultimately not achieved. Ablation was also delivered around the atrial appendage, but it was not isolated. Since that time, she had done well and her atrial arrhythmias were monitored through her loop recorder. She had not had any recurrence following her ablation and her oral anticoagulation was stopped in August of 2018. This was in favor of aspirin alone. She also is known to have severe aortic valvular disease and underwent TAVR in June of 2019. More recently, she began to experience upper respiratory infection symptoms and was feeling poorly. She was started on cefdinir as an outpatient. She became somewhat confused and was not eating very well. She presented to the emergency room for evaluation due to dyspnea. She had some slightly abnormal cardiac enzymes and reports a fall at home. Cardiology is following and performed an echocardiogram that showed an ejection fraction of 35% to 40%, though the exam was difficult due to atrial fibrillation with RVR. The apex was akinetic and the septum and anterior wall was severely hypokinetic. The left atrium was [id number] dilated. Ms. Cooney had her loop recorder interrogated and the report on the chart shows generally maintenance of sinus rhythm with brief atrial tachycardia episodes surrounding the time of TAVR and then tachycardic atrial arrhythmias starting mostly a few days ago leading up to her hospitalization, possibly provoked by her upper respiratory illness. REVIEW OF SYSTEMS: A 12-point review of systems was negative except that listed above in the HPI. Positive for malaise, cough, respiratory symptoms. Negative for heart racing, palpitations, chest pain, pressure, syncope, near syncope, stroke, or stroke-like symptoms. PAST MEDICAL HISTORY: 1. Longstanding persistent atrial fibrillation, status post PVAI on 01/22/2018 with extensive ablation of 71 minute delivered. Severe atrial scarring was noted. 2. History of preserved left ventricular systolic function. 3. Breast cancer status post mastectomy and radiation therapy. 4. Asthma. 5. Gastroesophageal reflux disease. 6. Possible pulmonary embolus back in 2017 by chart review, but patient denies this. 7. bradycardia on digoxin. ALLERGIES: PENICILLIN AND MORPHINE. HOME MEDICATIONS: Include: 1. Tramadol. 2. Ambien. 3. Theragran. 4. Potassium. 5. Protonix. 6. Remeron. 7. Lopressor. 8. Zestril. 9. Levothyroxine. 10. Levocetirizine. 11. Ipratropium. 12. Lasix. 13. Lexapro. 14. Plavix. 15. Lipitor. 16. Aspirin. FAMILY HISTORY: Negative for sudden cardiac . SOCIAL HISTORY: Worked in a [employer]. Denies alcohol, tobacco, or illicit drug use. PHYSICAL EXAMINATION: VITAL SIGNS: 98.2, pulse 138, blood pressure 127/66, respirations 16, oxygen is 97% on room air. GENERAL: The patient is alert, oriented. Speech is clear. Affect is appropriate. She is in no apparent distress, resting comfortably in bed with the occasional cough. HEENT: She is normocephalic and atraumatic. Sclerae anicteric. EOMs are intact. Oral mucosa is moist, pink with adequate dentition. NECK: Supple without jugular venous distention. There is some cervical lymphadenopathy present bilaterally. There is no thyromegaly. Carotids are without bruit. HEART: Rate is rapid and irregular. PMI is nondisplaced. LUNGS: Clear to auscultation with crackles in bilateral lower lobes. Respirations are even and nonlabored. Occasional congested cough is heard. ABDOMEN: Soft and nontender without palpable masses. EXTREMITIES: Warm and dry to touch without clubbing, cyanosis, or edema. NEUROLOGIC: Grossly intact and nonfocal. DATABASE: EKG and telemetry currently show atrial fibrillation with RVR, previously in sinus rhythm. Implantable loop recorder. Battery status is good. Largely shows maintenance of sinus rhythm with recent onset of atrial arrhythmias and RVR. LABORATORY: WBC 4.1, hemoglobin 11.9, platelet count is 136. Chemistry; potassium 4.2, creatinine 0.94. Troponin peaked at 3.4. TSH is 0.17, liver enzymes are within normal ranges. AST is slightly elevated at 35. IMAGING: Echocardiogram, ejection fraction 35-40 percent, though technically difficult exam given atrial fibrillation and tachycardia. [place] is akinetic and septum and anterior wall severely hypokinetic. IMPRESSION: 1. Atrial fibrillation with rapid ventricular rate in the setting of upper respiratory viral illness, possibly pneumonia. 2. Aortic valve stenosis status post successful transcatheter aortic valve replacement in June of 2019. 3. Hypertension, well controlled. 4. Hypothyroidism. 5. CHADS-VASc score of at least 4 on the basis of advanced age female gender, and hypertension, previously on warfarin, being restarted on Eliquis this hospital stay. 6. Newly diagnosed cardiomyopathy, possibly tachycardia mediated. 7. Elevated troponins per Cardiology. PLAN AND RECOMMENDATIONS: Ms. Cooney is experiencing late recurrent atrial fibrillation in the setting of acute upper respiratory tract infection. She underwent an extensive left atrial ablation in January 2018 and had done well. Her loop recorder shows that she began to have possibly some tachyarrhythmia surrounding the time of her TAVR, but largely the onset of her arrhythmias have been in the recent past. She now presents with RVR that is not responding to digoxin and diltiazem. She is having some hypotension with Cardizem. It is also found that she had an elevated troponin and her ejection fraction is severely reduced, though the exam was technically difficult to complete. For now, I agree with cardiology's plan for administration of IV amiodarone to allow for some rate control over the weekend as well as resuming oral anticoagulation with Eliquis 5 mg b.i.d. Once she is rate controlled, would consider re-evaluation of her ejection fraction with a repeat echocardiogram. If she converts to sinus rhythm on her own and her ejection fraction is improved, I would likely consider initiating Multaq in favor of the ongoing amiodarone. That being said, she may require short course of amiodarone following this event, which is likely provoked by her respiratory illness. We will re-evaluate on Friday. Thank you for allowing me to participate in the care of this patient. If further rate control is needed, would consider digoxin, though she has a tendency of bradycardia with this medication. Job ID: [id number]
[2019-08-13] MEDS: Zolpidem Tartrate 5 MG TAB PO SCH (21:39)
[2019-08-13] MEDS: Atorvastatin Calcium 40 MG TAB PO SCH (21:40)
[2019-08-14] MEDS: Digoxin 0.5 MG/2 ML AMP SLOW IVP SCH ×4 (00:50→17:32)
[2019-08-14] MEDS: Amiodarone 450 MG, Admixture Fee 1 EACH in Dextrose 5% in Water 250 ML IVPB SCH ×2 (01:04→16:47)
[2019-08-14 05:15] LABS: Anion Gap 15 mmol/L (10-20); BUN (Urea Nitrogen) 16 mg/dL (9.8-20.1); Calc. Creatinine Clearance 57 mL/min (70-130); Calcium 8.7 mg/dL (7.8-10.44); Carbon Dioxide 19 mmol/L (23-31); Chloride 106 mmol/L (98-107); Estimated GFR-MDRD 67; Glucose 94 mg/dL (83-110); Potassium 4.9 mmol/L (3.5-5.1); Sodium 135 mmol/L (136-145)
[2019-08-14] MEDS: Levothyroxine Sodium 50 MCG TAB PO SCH (05:32)
[2019-08-14 06:20] LABS: Band 4 % (5-11); Eosinophils 7 % (0-10); Hemoglobin 12.4 g/dL (12.0-16.0); Lymphocytes 43 % (21-51); MDiff Complete? YES; Mean Corpuscular HGB CONC 33.2 g/dL (32.0-36.0); Mean Corpuscular Hemoglobin 30.2 pg (27.0-31.0); Mean Platelet Volume 8.9 fL (7.4-10.4); Monocytes 14 % (0-10); Neutrophil 32 % (42-75); Platelet Count 134 thou/uL (130-400); Platelet Morphology Comment Appears Adequate; RBC Distribution Width 13.7 % (11.5-14.5); Red Blood Cell (RBC) Count 4.11 mill/uL (4.20-5.40); White Blood Cell (WBC) Count 5.5 thou/uL (4.8-10.8)
[2019-08-14] MEDS: Lisinopril 2.5 MG TAB PO SCH (08:38)
[2019-08-14] MEDS: Enoxaparin Sodium 60 MG/0.6 ML SYRINGE SC SCH ×2 (08:39→20:56)
[2019-08-14] MEDS: Multivit, Therapeutic 1 TAB PO SCH (08:39)
[2019-08-14] MEDS: Furosemide 20 MG TAB PO SCH (08:39)
[2019-08-14] MEDS: Aspirin 81 mg Enteric Coated Tablet PO SCH (08:39)
[2019-08-14] MEDS: Metoprolol Tartrate 25 MG TAB PO SCH ×2 (08:39→20:56)
[2019-08-14] MEDS: Cefdinir 300 MG CAP PO SCH ×2 (08:39→20:56)
[2019-08-14] MEDS: Potassium Chloride 20 MEQ TAB PO SCH (08:39)
[2019-08-14] MEDS: Loratadine 10 MG TAB PO SCH (08:39)
[2019-08-14] MEDS: Digoxin 0.125 MG TAB PO SCH (08:40)
[2019-08-14] MEDS: Fluticasone Propionate Nasal Spray 16 gm Bottle NASAL SCH (08:40)
[2019-08-14] MEDS: Amiodarone 200 MG TAB PO SCH ×3 (09:25→20:56)
--- NOTE | 2019-08-14 11:25 | PDOC.FM ---
- Subjective Subjective: Pt feeling well today, denies CP. Reports she awaits news from cardiology per plan. - Objective Vital Signs & Weight: Vital Signs (12 hours) Temp Pulse Resp BP BP Pulse Ox 08/14/19 11:06 76 114/56 L 08/14/19 08:40 95 08/14/19 08:38 119 H 163/59 H 08/14/19 08:00 96 08/14/19 07:57 97.7 F 119 H 20 151/65 H 96 08/14/19 05:36 71 08/14/19 03:51 97.2 F L 73 18 111/54 L 95 08/14/19 00:50 89 08/14/19 00:00 89 16 149/64 H Weight Admit Weight 63.701 kg Weight 61.552 kg I&O: 08/13/19 08/14/19 08/15/19 06:59 06:59 06:59 Intake Total 340 1829.95 Output Total 1999 2049 Balance -1660 -220.05 Result Diagrams: 08/14/19 04:39 08/14/19 04:39 Phys Exam - Physical Examination Constitutional: NAD HEENT: moist MMs, sclera anicteric Respiratory: no wheezing, clear to auscultation bilateral Cardiovascular: no significant murmur, no rub Gastrointestinal: non-tender, no distention Musculoskeletal: pulses present Neurological: normal sensation, moves all 4 limbs Psychiatric: normal affect, A&O x 3 Skin: no rash, normal turgor Dx/Plan (1) Atrial fibrillation, persistent Code(s): I48.1 - PERSISTENT ATRIAL FIBRILLATION * DO NOT USE * Status: Acute (2) GERD (gastroesophageal reflux disease) Code(s): K21.9 - GASTRO-ESOPHAGEAL REFLUX DISEASE WITHOUT ESOPHAGITIS Status: Acute (3) HTN (hypertension) Code(s): I10 - ESSENTIAL (PRIMARY) HYPERTENSION Status: Acute (4) S/P TAVR (transcatheter aortic valve replacement) Code(s): Z95.2 - PRESENCE OF PROSTHETIC HEART VALVE Status: Acute (5) Aortic stenosis, severe Code(s): I35.0 - NONRHEUMATIC AORTIC (VALVE) STENOSIS Status: Acute (6) Elevated troponin Code(s): R74.8 - ABNORMAL LEVELS OF OTHER SERUM ENZYMES Status: Acute (7) Major depression, chronic Code(s): F32.9 - MAJOR DEPRESSIVE DISORDER, SINGLE EPISODE, UNSPECIFIED Status : Acute (8) Hypothyroidism Code(s): E03.9 - HYPOTHYROIDISM, UNSPECIFIED Status: Chronic Qualifiers: Hypothyroidism type: unspecified Qualified Code(s): E03.9 - Hypothyroidism , unspecified (9) New onset of congestive heart failure Code(s): I50.9 - HEART FAILURE, UNSPECIFIED Status: Suspected - Plan Plan: Elevated troponins of unknown origin A- Stable, cards and EP on board. Trop elevated 1.4 -> 3.1 ->2.8. Pt denies chest pain but has cough x 1 week. Was started on azithromycin. EKG revealed st elevations in v1,v2 without reciprocal changes. No prevoius hx of stent placement. P- continue therapeutic lovenox and asa -cards started digoxin and amiodarone -EP consulted, will await recs. Hx of Cough, likely dx sinusitis A- Influenza A/B neg, CRP 3.34, procal 0.03. CXR stable chostophrenic angle blunting. no acute process. P- continue omnicef 300 bid HTN - lopressor started per Dr. Cagle A-fib w/ rvr morning 08/13/19. A- still in afib despite ablation performed by [facility] over . EP is consulted. Cards started amiodarone and digoxin P- continue amiodarone and digoxin -f/u cards and EP recs. Hypothyroid A- Decreased to 50 mcg daily, from 75. As TSH low. tsh 0.1735. free t4 1.08, t3 2.70 P- plan for recheck in 4 weeks HFrEF A- Echo 08/28 revealed EF 50-55%. , more recent showing EF 40-45%. P- plans for repeat echo once in NSR per cardiology GERD -cont home meds Hx of TAVR -MD aware performed by [facility] Hx of breast cancer in remission -MD aware Fluids: none VTE: therapeutic lovenox Code: Full
--- NOTE | 2019-08-14 11:25 | PRG ---
DATE OF SERVICE: 08/14/2019 I have examined the patient. I have discussed the case with Dr. Lor Sewell and agree with her assessment and plan. Job ID: [id number]
[2019-08-14] MEDS: Atorvastatin Calcium 40 MG TAB PO SCH (20:56)
[2019-08-14] MEDS: Zolpidem Tartrate 5 MG TAB PO SCH (20:56)
[2019-08-15] MEDS: Digoxin 0.5 MG/2 ML AMP SLOW IVP SCH ×4 (00:24→18:04)
[2019-08-15 04:57] LABS: #Eosinphils 0.3 thou/uL (0.0-0.7); #Lymphocytes 1.9 thou/uL (1.20-3.40); #Monocytes 0.6 thou/uL (0.11-0.59); #Neutrophils 2.9 thou/uL (1.40-6.50); %Basophils 0.8 % (0.0-1.0); %Eosinophils 4.6 % (0.0-10.0); %Lymphocytes 33.7 % (21.0-51.0); %Neutrophils 49.9 % (42.0-75.0); Hemoglobin 12.6 g/dL (12.0-16.0); Mean Corpuscular HGB CONC 35.1 g/dL (32.0-36.0); Mean Corpuscular Hemoglobin 31.9 pg (27.0-31.0); Mean Corpuscular Volume 90.8 fL (78.0-98.0); Mean Platelet Volume 8.9 fL (7.4-10.4); Platelet Count 176 thou/uL (130-400); RBC Distribution Width 13.5 % (11.5-14.5); Red Blood Cell (RBC) Count 3.96 mill/uL (4.20-5.40); White Blood Cell (WBC) Count 5.7 thou/uL (4.8-10.8)
[2019-08-15 05:19] LABS: Anion Gap 13 mmol/L (10-20); BUN (Urea Nitrogen) 14 mg/dL (9.8-20.1); Calc. Creatinine Clearance 57 mL/min (70-130); Calcium 8.6 mg/dL (7.8-10.44); Carbon Dioxide 23 mmol/L (23-31); Chloride 102 mmol/L (98-107); Estimated GFR-MDRD 66; Glucose 99 mg/dL (83-110); Potassium 4.5 mmol/L (3.5-5.1); Sodium 133 mmol/L (136-145)
[2019-08-15] MEDS: Levothyroxine Sodium 50 MCG TAB PO SCH (05:24)
--- NOTE | 2019-08-15 07:42 | PDOC.FM ---
- Subjective Subjective: pt continues to feel well, no complaints - Objective Vital Signs & Weight: Vital Signs (12 hours) Temp Pulse Resp BP Pulse Ox 08/15/19 03:27 97.3 F L 79 14 101/51 L 96 08/15/19 02:45 79 101/51 L 08/15/19 01:45 84 102/54 L 08/14/19 23:36 81 95/53 L Weight Admit Weight 63.701 kg Weight 62.097 kg I&O: 08/14/19 08/15/19 08/16/19 06:59 06:59 06:59 Intake Total 1829.95 1140.4 Output Total 2050 950 Balance -220.05 190.4 Result Diagrams: 08/15/19 04:40 08/15/19 04:39 Phys Exam - Physical Examination Constitutional: NAD HEENT: moist MMs, sclera anicteric Neck: no JVD, supple Respiratory: no wheezing, clear to auscultation bilateral Cardiovascular: no significant murmur, no rub Gastrointestinal: soft, non-tender Musculoskeletal: no edema, pulses present Neurological: normal sensation, moves all 4 limbs Psychiatric: normal affect, A&O x 3 Skin: no rash, normal turgor Dx/Plan (1) Atrial fibrillation, persistent Code(s): I48.1 - PERSISTENT ATRIAL FIBRILLATION * DO NOT USE * Status: Acute (2) GERD (gastroesophageal reflux disease) Code(s): K21.9 - GASTRO-ESOPHAGEAL REFLUX DISEASE WITHOUT ESOPHAGITIS Status: Acute (3) HTN (hypertension) Code(s): I10 - ESSENTIAL (PRIMARY) HYPERTENSION Status: Acute (4) S/P TAVR (transcatheter aortic valve replacement) Code(s): Z95.2 - PRESENCE OF PROSTHETIC HEART VALVE Status: Acute (5) Aortic stenosis, severe Code(s): I35.0 - NONRHEUMATIC AORTIC (VALVE) STENOSIS Status: Acute (6) Elevated troponin Code(s): R74.8 - ABNORMAL LEVELS OF OTHER SERUM ENZYMES Status: Acute (7) Major depression, chronic Code(s): F32.9 - MAJOR DEPRESSIVE DISORDER, SINGLE EPISODE, UNSPECIFIED Status : Acute (8) Hypothyroidism Code(s): E03.9 - HYPOTHYROIDISM, UNSPECIFIED Status: Chronic Qualifiers: Hypothyroidism type: unspecified Qualified Code(s): E03.9 - Hypothyroidism , unspecified (9) New onset of congestive heart failure Code(s): I50.9 - HEART FAILURE, UNSPECIFIED Status: Suspected - Plan Plan: Elevated troponins of unknown origin A- Stable, cards and EP on board. Trop elevated 1.4 -> 3.1 ->2.8. Pt denies chest pain but has cough x 1 week. Was started on azithromycin. EKG revealed st elevations in v1,v2 without reciprocal changes. No prevoius hx of stent placement. P- continue therapeutic lovenox and asa -cards started digoxin and amiodarone -EP consulted, will await recs. Hx of Cough, likely dx sinusitis A- Influenza A/B neg, CRP 3.34, procal 0.03. CXR stable chostophrenic angle blunting. no acute process. P- continue omnicef 300 bid HTN - lopressor started per Dr. Cagle A-fib w/ rvr morning 08/13/19. A- still in afib despite ablation performed by [facility] over . EP is consulted. Cards started amiodarone and digoxin P- continue amiodarone and digoxin -f/u cards and EP recs. -plan for possible echo once consistently with normal HR Hypothyroid A- Decreased to 50 mcg daily, from 75. As TSH low. tsh 0.1735. free t4 1.08, t3 2.70 P- plan for recheck in 4 weeks HFrEF A- Echo 08/28 revealed EF 50-55%. , more recent showing EF 40-45%. P- plans for repeat echo once HR normalized per cardiology GERD -cont home meds Hx of TAVR -MD aware performed by [facility] Hx of breast cancer in remission -MD aware Fluids: none VTE: therapeutic lovenox Code: Full
[2019-08-15] MEDS: Amiodarone 200 MG TAB PO SCH ×3 (08:00→20:48)
[2019-08-15] MEDS: Aspirin 81 mg Enteric Coated Tablet PO SCH (08:00)
[2019-08-15] MEDS: Digoxin 0.125 MG TAB PO SCH (08:00)
[2019-08-15] MEDS: Potassium Chloride 20 MEQ TAB PO SCH (08:00)
[2019-08-15] MEDS: Cefdinir 300 MG CAP PO SCH ×2 (08:00→20:48)
[2019-08-15] MEDS: Enoxaparin Sodium 60 MG/0.6 ML SYRINGE SC SCH ×2 (08:01→20:47)
[2019-08-15] MEDS: Furosemide 20 MG TAB PO SCH (08:02)
[2019-08-15] MEDS: Lisinopril 2.5 MG TAB PO SCH (08:02)
[2019-08-15] MEDS: Fluticasone Propionate Nasal Spray 16 gm Bottle NASAL SCH (08:02)
[2019-08-15] MEDS: Loratadine 10 MG TAB PO SCH (08:02)
[2019-08-15] MEDS: Metoprolol Tartrate 25 MG TAB PO SCH ×2 (08:03→20:48)
[2019-08-15] MEDS: Multivit, Therapeutic 1 TAB PO SCH (08:03)
--- NOTE | 2019-08-15 10:48 | PRG ---
DATE OF SERVICE: 08/15/2019 I have examined the patient. I did discuss her care with Dr. Hardeep Granados, and agree with his assessment and plan. Job ID: [id number]
[2019-08-15] MEDS: traMADol HCl 50 MG TAB PO PRN (18:06)
[2019-08-15] MEDS: Atorvastatin Calcium 40 MG TAB PO SCH (20:48)
[2019-08-15] MEDS: Zolpidem Tartrate 5 MG TAB PO SCH (20:49)
[2019-08-16] MEDS: Digoxin 0.5 MG/2 ML AMP SLOW IVP SCH ×2 (00:28→06:33)
[2019-08-16 03:52] LABS: #Basophils 0.1 thou/uL (0.0-0.2); #Eosinphils 0.3 thou/uL (0.0-0.7); #Lymphocytes 2.1 thou/uL (1.20-3.40); #Monocytes 0.5 thou/uL (0.11-0.59); #Neutrophils 2.4 thou/uL (1.40-6.50); %Basophils 1.1 % (0.0-1.0); %Lymphocytes 38.9 % (21.0-51.0); %Monocytes 9.7 % (0.0-10.0); %Neutrophils 45.3 % (42.0-75.0); Hemoglobin 11.5 g/dL (12.0-16.0); Mean Corpuscular HGB CONC 31.5 g/dL (32.0-36.0); Mean Corpuscular Hemoglobin 28.4 pg (27.0-31.0); Mean Corpuscular Volume 90.3 fL (78.0-98.0); Mean Platelet Volume 9.1 fL (7.4-10.4); Platelet Count 191 thou/uL (130-400); RBC Distribution Width 13.4 % (11.5-14.5); Red Blood Cell (RBC) Count 4.04 mill/uL (4.20-5.40); White Blood Cell (WBC) Count 5.3 thou/uL (4.8-10.8)
[2019-08-16 04:11] LABS: Anion Gap 12 mmol/L (10-20); BUN (Urea Nitrogen) 17 mg/dL (9.8-20.1); Calc. Creatinine Clearance 49 mL/min (70-130); Calcium 8.9 mg/dL (7.8-10.44); Carbon Dioxide 25 mmol/L (23-31); Chloride 101 mmol/L (98-107); Estimated GFR-MDRD 55; Glucose 96 mg/dL (83-110); Potassium 4.6 mmol/L (3.5-5.1); Sodium 133 mmol/L (136-145)
--- NOTE | 2019-08-16 06:14 | PDOC.FM ---
- Subjective Subjective: Pt states her cough has much improved. Denies SOB. c/o cp in the Left lateral location where she has a bruise from her fall. Tele overnight: A fib with rate 60-80's - Objective MAR Reviewed: Yes Vital Signs & Weight: Vital Signs (12 hours) Temp Pulse Resp BP Pulse Ox 08/16/19 04:03 97.5 F L 69 14 136/51 L 93 L 08/15/19 22:59 75 103/53 L 08/15/19 19:53 98.2 F 95 18 105/55 L 96 08/15/19 18:43 92 Weight Admit Weight 63.701 kg Weight 62.097 kg I&O: 08/14/19 08/15/19 08/16/19 06:59 06:59 06:59 Intake Total 1829.95 1140.4 1125 Output Total 2050 950 900 Balance -220.05 190.4 225 Result Diagrams: 08/16/19 03:33 08/16/19 03:33 Phys Exam - Physical Examination Constitutional: NAD HEENT: moist MMs, sclera anicteric Neck: no nodes, full ROM Respiratory: no wheezing, no rhonchi, clear to auscultation bilateral Cardiovascular: no rub, irregular (rate 70's ) Tenderness to Left mid-axillary line to palpation Gastrointestinal: soft, no distention Musculoskeletal: no edema, pulses present Neurological: non-focal, moves all 4 limbs Psychiatric: normal affect, A&O x 3 Skin: normal turgor, cap refill <2 seconds Dx/Plan (1) NSTEMI (non-ST elevated myocardial infarction) Code(s): I21.4 - NON-ST ELEVATION (NSTEMI) MYOCARDIAL INFARCTION Status: Acute (2) Elevated troponin Code(s): R74.8 - ABNORMAL LEVELS OF OTHER SERUM ENZYMES Status: Acute (3) Major depression, chronic Code(s): F32.9 - MAJOR DEPRESSIVE DISORDER, SINGLE EPISODE, UNSPECIFIED Status : Acute (4) Status post catheter ablation of atrial fibrillation Code(s): Z98.890 - OTHER SPECIFIED POSTPROCEDURAL STATES Status: Acute (5) Hypothyroidism Code(s): E03.9 - HYPOTHYROIDISM, UNSPECIFIED Status: Chronic Qualifiers: Hypothyroidism type: unspecified Qualified Code(s): E03.9 - Hypothyroidism , unspecified (6) HTN (hypertension) Code(s): I10 - ESSENTIAL (PRIMARY) HYPERTENSION Status: Acute - Plan Plan: Elevated troponins of unknown origin A- Stable, cards and EP on board. Trop elevated 1.4 -> 3.1 ->2.8. Pt denies chest pain but has cough x [address] elevations in v1,v2 without reciprocal changes. No previous hx of stent placement. P- continue asa -cards started digoxin and amiodarone -EP consulted, will await recs for further care . Hx of Cough, likely dx sinusitis A- Influenza A/B neg, CRP 3.34, procal 0.03. CXR stable chostophrenic angle blunting. no acute process. P- continue omnicef 300 bid for 10 days HTN - lopressor started per Dr. Cagel A-fib w/ rvr morning 08/13/19. A- still in afib despite ablation performed by [facility] over . EP is consulted. Cards started amiodarone and digoxin. P- IV amiodarone, restart eliquis 5 mg bid. -f/u cards and EP recs. -plan for possible echo once consistently with normal HR Cardiomyopathy - Likely mediated by tachycardia - EP and cards consulted - Echo showed EF 35-40%, A fib with RVR, septum and anterior wall severely hypokinetic, apex akinetic. - Started IV amiodarone Hypothyroid A- Decreased to 50 mcg daily, from 75. As TSH low. tsh 0.1735. free t4 1.08, t3 2.70 P- plan for recheck in 4 weeks HFrEF A- Echo 08/28 revealed EF 50-55%. , more recent showing EF 40-45%. P- plans for repeat echo once HR normalized per cardiology GERD -cont home meds Hx of TAVR - aware performed by [facility] Hx of breast cancer in remission -MD aware Fluids: none VTE: therapeutic lovenox Code: Full
[2019-08-16] MEDS: Levothyroxine Sodium 50 MCG TAB PO SCH (06:32)
--- NOTE | 2019-08-16 08:22 | PDOC.CPN ---
- Subjective Date: 08/16/19 Time: 08:31 Interval history: The pt seen and examined. No overnight events. No cardiac complaints. - Objective Allergies/Adverse Reactions: Allergies Allergy/AdvReac Type Severity Reaction Status Date / Time doxycycline Allergy Severe Stomach Verified 01/14/18 12:46 Ache morphine Allergy Severe convulsions Verified 01/14/18 12:46 Penicillins Allergy Severe Anaphylaxis Verified 01/14/18 12:46 lactose AdvReac GI upset Verified 01/14/18 12:46 Visit Medications: Current Medications Acetaminophen (Tylenol) 650 mg PO Q6H PRN PRN Reason: Mild Pain (1-3) Amiodarone HCl (Cordarone) 400 mg PO TID [facility] Last Admin: 08/15/19 20:48 Dose: 400 mg Aspirin (Ecotrin) 81 mg PO DAILY [facility] Last Admin: 08/15/19 08:00 Dose: 81 mg Atorvastatin Calcium (Lipitor) 40 mg PO HS [facility] Last Admin: 08/15/19 20:48 Dose: 40 mg Cefdinir (Omnicef) 300 mg PO BID [facility] Last Admin: 08/15/19 20:48 Dose: 300 mg Digoxin (Lanoxin) 0.25 mg SLOW IVP Q6HR [facility] Last Admin: 08/16/19 06:33 Dose: Not Given Digoxin (Lanoxin) 0.125 mg PO DAILY [facility] Last Admin: 08/15/19 08:00 Dose: 0.125 mg Enoxaparin Sodium (Lovenox) 60 mg SC 0900,2100 [facility] Last Admin: 08/15/19 20:47 Dose: 60 mg Fluticasone Propionate (Flonase Nasal [place]) 0 gm NASAL DAILY [facility] Last Admin: 08/15/19 08:02 Dose: 2 spr Furosemide (Lasix) 20 mg PO DAILY [facility] Last Admin: 08/15/19 08:02 Dose: 20 mg Amiodarone HCl 450 mg/Miscellaneous Medication 1 each/ Dextrose/Water 259 mls @ 0 mls/hr IVPB INF [facility]; Protocol Last Admin: 08/14/19 16:47 Dose: 259 mls Levothyroxine Sodium (Synthroid) 50 mcg PO 0600 [facility] Last Admin: 08/16/19 06:32 Dose: 50 mcg Lisinopril (Zestril) 2.5 mg PO QAM [facility] Last Admin: 08/15/19 08:02 Dose: 2.5 mg Loratadine (Claritin) 10 mg PO DAILY [facility] Last Admin: 08/15/19 08:02 Dose: 10 mg Metoprolol Tartrate (Lopressor) 12.5 mg PO BID [facility] Last Admin: 08/15/19 20:48 Dose: 12.5 mg Multivitamins (Theragran) 1 tab PO DAILY [facility] Last Admin: 08/15/19 08:03 Dose: 1 tab Pantoprazole Sodium (Protonix) 40 mg PO DAILY [facility] Last Admin: 08/15/19 08:03 Dose: 40 mg Potassium Chloride (K-Dur) 20 meq PO QAM-WM [facility] Last Admin: 08/15/19 08:00 Dose: 20 meq Tramadol HCl (Ultram) 50 mg PO DAILY PRN PRN Reason: Pain Last Admin: 08/15/19 18:06 Dose: 50 mg Zolpidem Tartrate (Ambien) 10 mg PO HS [facility] Last Admin: 08/15/19 20:49 Dose: 10 mg Vital Signs & Weight: Vital Signs Temp Pulse Resp BP Pulse Ox 08/16/19 04:03 97.5 F L 69 14 136/51 L 93 L 08/15/19 22:59 75 103/53 L Admit Weight 140 lb 7 oz Weight 134 lb - Physical Exam General: alert & oriented x3 HEENT: mucus membranes moist Neck: supple neck Cardiac: irregularly regular Lungs: clear to auscultation Neuro: cranial nerve 2-12 intact Extremities: no edema - Labs Result Diagrams: 08/16/19 03:33 08/16/19 03:33 Troponin/CKMB CK-MB (CK-2) 9.1 ng/mL (0-6.6) H* 08/12/19 17:45 Troponin I 2.838 ng/mL (< 0.028) H* 08/12/19 17:45 - Telemetry Supraventricular conduction: atrial fibrillation - Assessment/Plan Assessment/Plan: 1. Elevated Trop with unknown etiology - possible from s/p fall, Tachycardia, and/or Afib with RVR; s/p LHC in 2016 and 2018 showed normal coronary arteries 2. Afib with RVR - well controlled HR with Amiodarone 400mg BID since 08/14/2019 ; On Digoxin, Metoprolol and Eliquis BID; 3. Hx of Cough, likely dx sinusitis, URI, or PNA? - stable with allergy med 4. hx of severe with s/p TAVR in 2019 - on Eliquis 5. HTN - hypotensive; may hold Lisinopril 6. HLD - 7. Hypothyroidism - managed by PCP 8. hx of breast ca MAR reviewed * Echo in 02/2019 with EF 55-60%, mild-mod MR, severe (s/p TAVR in 06/2019), mild-mod AI, mild PI and TR. * Echo on 08/13/2019 with EF 40-45%, akinetic apex, severe hypokinetic septum and anterior wall, and stable TAVR. * Recheck the EF when in sinus. If the EF is still decreased then consider cardiac cath to eval. the cors for possible obstruction post TAVR. <addendum> Plan for ASHLEY/DCCV possible tomorrow on 08/17/[address] Cagle Pt. seen and eval. by me. i agree with the A/P by the E D TECH.Still in Afib. but rate controlled. On po amiodarone. Chest: coarse right basilar rales. No edema. Plan for cardiovesrsion if still in Afib. tomorrow. jeevan
[2019-08-16] MEDS: Potassium Chloride 20 MEQ TAB PO SCH (09:50)
[2019-08-16] MEDS: Aspirin 81 mg Enteric Coated Tablet PO SCH (09:51)
[2019-08-16] MEDS: Apixaban 5 MG TAB PO SCH ×2 (09:51→21:38)
[2019-08-16] MEDS: Amiodarone 200 MG TAB PO SCH ×3 (09:51→21:38)
[2019-08-16] MEDS: Digoxin 0.125 MG TAB PO SCH (09:52)
[2019-08-16] MEDS: Cefdinir 300 MG CAP PO SCH ×2 (09:52→21:38)
[2019-08-16] MEDS: Lisinopril 2.5 MG TAB PO SCH (09:53)
[2019-08-16] MEDS: Furosemide 20 MG TAB PO SCH (09:53)
[2019-08-16] MEDS: Fluticasone Propionate Nasal Spray 16 gm Bottle NASAL SCH (09:53)
[2019-08-16] MEDS: Multivit, Therapeutic 1 TAB PO SCH (09:54)
[2019-08-16] MEDS: Loratadine 10 MG TAB PO SCH (09:54)
[2019-08-16] MEDS: Metoprolol Tartrate 25 MG TAB PO SCH ×2 (09:57→21:38)
--- NOTE | 2019-08-16 11:24 | PRG ---
DATE OF SERVICE: 08/16/2019 Krista is still being followed by Cardiology and the EP Service. According to the patient, they are going to attempt cardioversion today. Job ID: [id number]
[2019-08-16] MEDS: traMADol HCl 50 MG TAB PO PRN (16:01)
--- NOTE | 2019-08-16 17:24 | PDOC.EP ---
- Subjective Date: 08/16/19 Time: 17:23 Interval History: S/P IV amio loading, now switched to PO amiodarone. - Review of Systems Constitutional: denies: chills, fever, malaise, sweats, weakness, other Respiratory: reports: cough Cardiology: denies: chest pain, edema, heart racing, light headedness, paroxysmal noc. dyspnea, orthopnea, palpitations, passing out, pleuritic pain, pressure, swelling, other - Objective Allergies/Adverse Reactions: Allergies Allergy/AdvReac Type Severity Reaction Status Date / Time doxycycline Allergy Severe Stomach Verified 01/14/18 12:46 Ache morphine Allergy Severe convulsions Verified 01/14/18 12:46 Penicillins Allergy Severe Anaphylaxis Verified 01/14/18 12:46 lactose AdvReac GI upset Verified 01/14/18 12:46 Current Medications Acetaminophen (Tylenol) 650 mg PO Q6H PRN PRN Reason: Mild Pain (1-3) Amiodarone HCl (Cordarone) 400 mg PO TID [facility] Last Admin: 08/16/19 16:01 Dose: 400 mg Apixaban (Eliquis) 5 mg PO BID [facility] Last Admin: 08/16/19 09:51 Dose: 5 mg Aspirin (Ecotrin) 81 mg PO DAILY [facility] Last Admin: 08/16/19 09:51 Dose: 81 mg Atorvastatin Calcium (Lipitor) 40 mg PO HS [facility] Last Admin: 08/15/19 20:48 Dose: 40 mg Cefdinir (Omnicef) 300 mg PO BID [facility] Last Admin: 08/16/19 09:52 Dose: 300 mg Digoxin (Lanoxin) 0.125 mg PO DAILY [facility] Last Admin: 08/16/19 09:52 Dose: 0.125 mg Fluticasone Propionate (Flonase Nasal [place]) 0 gm NASAL DAILY [facility] Last Admin: 08/16/19 09:53 Dose: 1 spr Furosemide (Lasix) 20 mg PO DAILY [facility] Last Admin: 08/16/19 09:53 Dose: 20 mg Amiodarone HCl 450 mg/Miscellaneous Medication 1 each/ Dextrose/Water 259 mls @ 0 mls/hr IVPB INF [facility]; Protocol Last Admin: 08/14/19 16:47 Dose: 259 mls Levothyroxine Sodium (Synthroid) 50 mcg PO 0600 [facility] Last Admin: 08/16/19 06:32 Dose: 50 mcg Lisinopril (Zestril) 2.5 mg PO QAM [facility] Last Admin: 08/16/19 09:53 Dose: 2.5 mg Loratadine (Claritin) 10 mg PO DAILY [facility] Last Admin: 08/16/19 09:54 Dose: 10 mg Metoprolol Tartrate (Lopressor) 12.5 mg PO BID [facility] Last Admin: 08/16/19 09:57 Dose: 12.5 mg Multivitamins (Theragran) 1 tab PO DAILY [facility] Last Admin: 08/16/19 09:54 Dose: 1 tab Pantoprazole Sodium (Protonix) 40 mg PO DAILY [facility] Last Admin: 08/16/19 09:54 Dose: 40 mg Potassium Chloride (K-Dur) 20 meq PO QAM-WM [facility] Last Admin: 08/16/19 09:50 Dose: 20 meq Tramadol HCl (Ultram) 50 mg PO DAILY PRN PRN Reason: Pain Last Admin: 08/16/19 16:01 Dose: 50 mg Zolpidem Tartrate (Ambien) 10 mg PO HS [facility] Last Admin: 08/15/19 20:49 Dose: 10 mg Vital Signs & Weight: Vital Signs Temp Pulse Resp BP BP Pulse Ox 08/16/19 12:50 98.0 F 75 14 97/50 L 95 08/16/19 07:45 97.7 F 77 17 117/56 L 97 Admit Weight 140 lb 7 oz Weight 134 lb I/O: I/O 08/15/19 08/16/19 08/17/19 06:59 06:59 06:59 Intake Total 1140.4 1275 Output Total 950 1300 Balance 190.4 -25 - Physical Exam General: appears well Neck: supple neck, no JVD/HJR Cardiology: irregularly irregular Lungs: clear to auscultation Abdomen: unremarkable, active bowel sounds, soft - Chadsvasc Risk factors Hypertension: 1 Age >75: 2 Female: 1 Risk Score: 4 - Labs Result Diagrams: 08/16/19 03:33 08/16/19 03:33 - Assessment/Plan Assessment/Plan: 1. Recurretn atrial fibrillation/atypical atrial flutter with rapid ventricular rate in the setting of upper respiratory viral illness, possibly pneumonia. Edilson ablation in Summer 2017 2. Aortic valve stenosis status post successful transcatheter aortic valve placement in June of 2019. 3. Hypertension, well controlled. 4. Hypothyroidism. 5. CHADS-VASc score of at least 4 on the basis of advanced age female gender, and hypertension, previously on warfarin, being restarted on Eliquis this hospital stay. 6. Newly diagnosed cardiomyopathy, possibly tachycardia mediated. 7. Elevated troponins per Cardiology. Now rates are well controoled after IV amiodarone loading is complete. Agree with plans for ASHLEY/CV pre- discharge.
[2019-08-16] MEDS: Atorvastatin Calcium 40 MG TAB PO SCH (21:38)
[2019-08-16] MEDS: Zolpidem Tartrate 5 MG TAB PO SCH (21:38)
[2019-08-17 04:37] LABS: #Basophils 0.1 thou/uL (0.0-0.2); #Eosinphils 0.4 thou/uL (0.0-0.7); #Lymphocytes 1.7 thou/uL (1.20-3.40); #Monocytes 0.6 thou/uL (0.11-0.59); #Neutrophils 3.8 thou/uL (1.40-6.50); %Basophils 0.8 % (0.0-1.0); %Eosinophils 5.7 % (0.0-10.0); %Lymphocytes 26.6 % (21.0-51.0); %Monocytes 9.5 % (0.0-10.0); %Neutrophils 57.5 % (42.0-75.0); Hemoglobin 12.1 g/dL (12.0-16.0); Mean Corpuscular HGB CONC 33.3 g/dL (32.0-36.0); Mean Corpuscular Hemoglobin 29.8 pg (27.0-31.0); Mean Corpuscular Volume 89.5 fL (78.0-98.0); Mean Platelet Volume 9.1 fL (7.4-10.4); Platelet Count 205 thou/uL (130-400); RBC Distribution Width 13.3 % (11.5-14.5); Red Blood Cell (RBC) Count 4.05 mill/uL (4.20-5.40); White Blood Cell (WBC) Count 6.6 thou/uL (4.8-10.8)
[2019-08-17 05:04] LABS: Anion Gap 12 mmol/L (10-20); BUN (Urea Nitrogen) 20 mg/dL (9.8-20.1); Calc. Creatinine Clearance 40 mL/min (70-130); Carbon Dioxide 27 mmol/L (23-31); Chloride 100 mmol/L (98-107); Estimated GFR-MDRD 46; Glucose 85 mg/dL (83-110); Potassium 5.1 mmol/L (3.5-5.1); Sodium 134 mmol/L (136-145)
[2019-08-17 05:20] VITALS: BMI 22.9
[2019-08-17] MEDS: Levothyroxine Sodium 50 MCG TAB PO SCH (06:04)
--- NOTE | 2019-08-17 06:33 | PDOC.FM ---
- Subjective Subjective: Pt reports doing better. Denies CP, SOB. States cough still present, drainage improved. Going for ASHLEY today with possible cardioversion. Vitals stable. - Objective MAR Reviewed: Yes Vital Signs & Weight: Vital Signs (12 hours) Temp Pulse Resp BP Pulse Ox 08/17/19 04:00 97.0 F L 56 L 14 105/50 L 95 08/16/19 23:50 98.2 F 63 18 134/51 L 93 L 08/16/19 20:00 97.9 F 71 18 115/59 L 92 L Weight Admit Weight 63.701 kg Weight 60.691 kg I&O: 08/15/19 08/16/19 08/17/19 06:59 06:59 06:59 Intake Total 1140.4 1275 570 Output Total 950 1300 450 Balance 190.4 -25 120 Result Diagrams: 08/17/19 04:07 08/17/19 04:07 Phys Exam - Physical Examination Constitutional: NAD HEENT: moist MMs, sclera anicteric Neck: no JVD, full ROM Respiratory: no wheezing Slight rhonchi present LLL. Improved from previous exams. Cardiovascular: irregular (normal rate ) Gastrointestinal: soft, non-tender, positive bowel sounds Musculoskeletal: no edema, pulses present Neurological: non-focal, moves all 4 limbs Psychiatric: normal affect, A&O x 3 Skin: no rash, normal turgor, cap refill <2 seconds Dx/Plan (1) NSTEMI (non-ST elevated myocardial infarction) Code(s): I21.4 - NON-ST ELEVATION (NSTEMI) MYOCARDIAL INFARCTION Status: Resolved (2) Elevated troponin Code(s): R74.8 - ABNORMAL LEVELS OF OTHER SERUM ENZYMES Status: Acute (3) Major depression, chronic Code(s): F32.9 - MAJOR DEPRESSIVE DISORDER, SINGLE EPISODE, UNSPECIFIED Status : Acute (4) Status post catheter ablation of atrial fibrillation Code(s): Z98.890 - OTHER SPECIFIED POSTPROCEDURAL STATES Status: Acute (5) Hypothyroidism Code(s): E03.9 - HYPOTHYROIDISM, UNSPECIFIED Status: Chronic Qualifiers: Hypothyroidism type: unspecified Qualified Code(s): E03.9 - Hypothyroidism , unspecified (6) HTN (hypertension) Code(s): I10 - ESSENTIAL (PRIMARY) HYPERTENSION Status: Acute - Plan Plan: Elevated troponins from NSTEMI Type II, from demand ischemia. Resolved. A- Stable, cards and EP on board. Trop elevated 1.4 -> 3.1 ->2.8. Pt denies chest pain but has cough x 1 week before admission. EKG revealed st elevations in v1,v2 without reciprocal changes. No previous hx of stent placement. P- continue asa -cards started digoxin and amiodarone. Started Eliquis 5 mg BID. -EP consulted. Thank you for recommendations. Planning for ASHLEY with possible cardioversion 08/17. Hx of Cough, likely dx sinusitis A- Influenza A/B neg, CRP 3.34, procal 0.03. CXR stable chostophrenic angle blunting. no acute process. P- continue omnicef 300 bid for 10 days HTN - lopressor started per Dr. Cagle A-fib w/ rvr morning 08/13/19. A- still in afib despite ablation performed by [facility] over . EP is consulted. Cards started amiodarone and digoxin. P- IV amiodarone, digoxin, restart eliquis 5 mg bid. -f/u cards and EP recs. -ASHLEY with possible cardioversion 08/17. Cardiomyopathy - Likely mediated by tachycardia - EP and cards consulted - Echo showed EF 35-40%, A fib with RVR, septum and anterior wall severely hypokinetic, apex akinetic. - Started IV amiodarone, digoxin and eliquis. Hypothyroid A- Decreased to 50 mcg daily, from 75. As TSH low. tsh 0.1735. free t4 1.08, t3 2.70 P- plan for recheck in 4 weeks HFrEF A- Echo 08/28 revealed EF 50-55%. , more recent showing EF 40-45%. P- plans for ASHLEY GERD -cont home meds Hx of TAVR - aware performed by [facility] Hx of breast cancer in remission -MD aware Fluids: none VTE: therapeutic lovenox Code: Full Dispo: stable, inpatient >48 hr hx course anticipated.
[2019-08-17] MEDS ORDERED: PROPOFOL 40 ML ONE (07:42)
--- NOTE | 2019-08-17 08:40 | PDOC.CPN ---
- Subjective Date: 08/17/19 Time: 07:45 - Review of Systems General: reports: fatigue. denies: fever/chills, weight/appetite/sleep changes , night sweats Respiratory: reports: cough, congestion, shortness of breath Cardiovascular: reports: chest pain, palpitation, edema, paroxysmal nocturnal dyspnea, orthopnea Gastrointestinal: reports: nausea, vomiting, diarrhea Musculoskeletal: reports: arthritis/arthralgias Neurological: reports: weakness - Objective Allergies/Adverse Reactions: Allergies Allergy/AdvReac Type Severity Reaction Status Date / Time doxycycline Allergy Severe Stomach Verified 01/14/18 12:46 Ache morphine Allergy Severe convulsions Verified 01/14/18 12:46 Penicillins Allergy Severe Anaphylaxis Verified 01/14/18 12:46 lactose AdvReac GI upset Verified 01/14/18 12:46 Visit Medications: Current Medications Acetaminophen (Tylenol) 650 mg PO Q6H PRN PRN Reason: Mild Pain (1-3) Amiodarone HCl (Cordarone) 400 mg PO TID [facility] Last Admin: 08/16/19 21:38 Dose: 400 mg Apixaban (Eliquis) 5 mg PO BID [facility] Last Admin: 08/16/19 21:38 Dose: 5 mg Aspirin (Ecotrin) 81 mg PO DAILY [facility] Last Admin: 08/16/19 09:51 Dose: 81 mg Atorvastatin Calcium (Lipitor) 40 mg PO HS [facility] Last Admin: 08/16/19 21:38 Dose: 40 mg Cefdinir (Omnicef) 300 mg PO BID [facility] Last Admin: 08/16/19 21:38 Dose: 300 mg Digoxin (Lanoxin) 0.125 mg PO DAILY [facility] Last Admin: 08/16/19 09:52 Dose: 0.125 mg Fluticasone Propionate (Flonase Nasal [place]) 0 gm NASAL DAILY [facility] Last Admin: 08/16/19 09:53 Dose: 1 spr Furosemide (Lasix) 20 mg PO DAILY [facility] Last Admin: 08/16/19 09:53 Dose: 20 mg Amiodarone HCl 450 mg/Miscellaneous Medication 1 each/ Dextrose/Water 259 mls @ 0 mls/hr IVPB INF [facility]; Protocol Last Admin: 08/14/19 16:47 Dose: 259 mls Levothyroxine Sodium (Synthroid) 50 mcg PO 0600 [facility] Last Admin: 08/17/19 06:04 Dose: Not Given Lisinopril (Zestril) 2.5 mg PO QAM [facility] Last Admin: 08/16/19 09:53 Dose: 2.5 mg Loratadine (Claritin) 10 mg PO DAILY [facility] Last Admin: 08/16/19 09:54 Dose: 10 mg Metoprolol Tartrate (Lopressor) 12.5 mg PO BID [facility] Last Admin: 08/16/19 21:38 Dose: 12.5 mg Multivitamins (Theragran) 1 tab PO DAILY [facility] Last Admin: 08/16/19 09:54 Dose: 1 tab Pantoprazole Sodium (Protonix) 40 mg PO DAILY [facility] Last Admin: 08/16/19 09:54 Dose: 40 mg Potassium Chloride (K-Dur) 20 meq PO QAM[facility] Last Admin: 08/16/19 09:50 Dose: 20 meq Tramadol HCl (Ultram) 50 mg PO DAILY PRN PRN Reason: Pain Last Admin: 08/16/19 16:01 Dose: 50 mg Zolpidem Tartrate (Ambien) 10 mg PO HS [facility] Last Admin: 08/16/19 21:38 Dose: 10 mg Vital Signs & Weight: Vital Signs Temp Pulse Resp BP Pulse Ox 08/17/19 04:00 97.0 F L 56 L 14 105/50 L 95 08/16/19 23:50 98.2 F 63 18 134/51 L 93 L Admit Weight 140 lb 7 oz Weight 133 lb 12.8 oz - CHADS-VASc Congestive heart failure: 1 Hypertension: 1 Age >75: 2 Female: 1 Risk Score: 5 - Physical Exam HEENT: mucus membranes moist, normocephaly Neck: supple neck, no masses, no lymphadenopathy Cardiac: irregularly regular, systolic murmur (at the apex c/w MR) Lungs: bibasilar rales, scattered rhonchi Abdomen: soft, non-tender Extremities: no cyanosis, no clubbing, no edema Skin: brusing Musculoskeletal: normal range of motion - Labs Result Diagrams: 08/17/19 04:07 08/17/19 04:07 Troponin/CKMB CK-MB (CK-2) 9.1 ng/mL (0-6.6) H* 08/12/19 17:45 Troponin I 2.838 ng/mL (< 0.028) H* 08/12/19 17:45 - Telemetry Supraventricular conduction: atrial fibrillation - Assessment/Plan Assessment/Plan: 1. Elevated Trop with unknown etiology - possible from s/p fall, Tachycardia, and/or Afib with RVR; s/p LHC in 2017 and 2018 showed normal coronary arteries 2. Afib with RVR - well controlled HR with Amiodarone 400mg BID since 08/14/2019 ; On Digoxin, Metoprolol and Eliquis BID; Plan for ASHLEY/cardioversion this AM. 3. Hx of Cough, likely dx sinusitis, URI, or PNA? - stable with allergy med . Repeat CXR due to increased rhonchi in bilat. bases . Left > right. 4. hx of severe with s/p TAVR in 2019 - on Eliquis. The valve by TTE seems to be normal. Re-evaluate by ASHLEY today prior to cardioversion of atrial fib. 5. HTN - hypotensive; may hold Lisinopril 6. HLD - 7. Hypothyroidism - managed by PCP 8. hx of breast ca MAR reviewed * Echo in 02/2019 with EF 55-60%, mild-mod MR, severe (s/p TAVR in 06/2019), mild-mod AI, mild PI and TR. * Echo on 08/13/2019 with EF 40-45%, akinetic apex, severe hypokinetic septum and anterior wall, and stable TAVR. Addendum: ASHLEY this AM/ Cardioversion. The EF is NORMAL. Moderate MR,mild TR, TAVR normal function. Small perivalvular leak. No intracardiac masses or thrombi. Successful cardioversion of back to NSR HR 50's when pt. is awake. Continue present meds. Taper amiodarone.
--- NOTE | 2019-08-17 09:25 | RAD ---
PORTABLE CHEST 1 VIEW: DATE: 08/17/2019. TIME: 8:52 AM. HISTORY: CHF and dyspnea. COMPARISON: 08/11/2019. FINDINGS: The heart size is enlarged. There is stable blunting of the left costophrenic angle. No lobar conso lidation, pneumothoraces, or large effusions are seen. IMPRESSION: Stable exam. POS: OFF
[2019-08-17] MEDS ORDERED: PROPOFOL 200 MG/20 ML VIAL ONE (10:05)
[2019-08-17] MEDS: Potassium Chloride 20 MEQ TAB PO SCH (10:57)
[2019-08-17] MEDS: Apixaban 5 MG TAB PO SCH ×2 (10:58→20:24)
[2019-08-17] MEDS: Aspirin 81 mg Enteric Coated Tablet PO SCH (10:58)
[2019-08-17] MEDS: Cefdinir 300 MG CAP PO SCH ×2 (10:58→20:24)
[2019-08-17] MEDS: Digoxin 0.125 MG TAB PO SCH (10:58)
[2019-08-17] MEDS: Amiodarone 200 MG TAB PO SCH ×3 (10:58→20:24)
[2019-08-17] MEDS: Loratadine 10 MG TAB PO SCH (10:59)
[2019-08-17] MEDS: Metoprolol Tartrate 25 MG TAB PO SCH ×2 (10:59→20:25)
[2019-08-17] MEDS: Lisinopril 2.5 MG TAB PO SCH (10:59)
[2019-08-17] MEDS: Furosemide 20 MG TAB PO SCH (10:59)
[2019-08-17] MEDS: Multivit, Therapeutic 1 TAB PO SCH (10:59)
[2019-08-17] MEDS: Fluticasone Propionate Nasal Spray 16 gm Bottle NASAL SCH (10:59)
--- NOTE | 2019-08-17 11:09 | PRG ---
DATE OF SERVICE: 08/17/2019 Ms. Cooney is currently down for a cardioversion. She was seen by Cardiology, who recommended a transesophageal echo prior to her cardioversion, which is likely to occur later this morning or this afternoon. Job ID: [id number]
--- NOTE | 2019-08-17 11:13 | EKG ---
Test Reason : POST CARDIOVERSION Blood Pressure : / mmHG Vent. Rate : 056 BPM Atrial Rate : 056 BPM P-R Int : 230 ms QRS Dur : 132 ms QT Int : 444 ms P-R-T Axes : 061 055 225 degrees QTc Int : 428 ms Sinus bradycardia with 1st degree A-V block Non-specific intra-ventricular conduction block T wave abnormality, consider inferolateral ischemia Abnormal ECG When compared with ECG of 13-AUG-2019 07:25, Sinus rhythm has replaced Atrial fibrillation Vent. rate has decreased BY [address] Adam BENDER ([id number]) on 08/17/2019 11:12:48 AM Referred By: MARITZA Confirmed By:DR. Adam BENDER
[2019-08-17] MEDS: traMADol HCl 50 MG TAB PO PRN (12:28)
[2019-08-17] MEDS: Zolpidem Tartrate 5 MG TAB PO SCH (20:24)
[2019-08-17] MEDS: Atorvastatin Calcium 40 MG TAB PO SCH (20:24)
[2019-08-18 04:40] LABS: #Eosinphils 0.4 thou/uL (0.0-0.7); #Lymphocytes 1.2 thou/uL (1.20-3.40); #Monocytes 0.6 thou/uL (0.11-0.59); #Neutrophils 3.8 thou/uL (1.40-6.50); %Basophils 0.7 % (0.0-1.0); %Lymphocytes 20.6 % (21.0-51.0); %Monocytes 9.8 % (0.0-10.0); %Neutrophils 62.9 % (42.0-75.0); Hemoglobin 10.8 g/dL (12.0-16.0); Mean Corpuscular Hemoglobin 29.8 pg (27.0-31.0); Mean Corpuscular Volume 90.3 fL (78.0-98.0); Mean Platelet Volume 8.7 fL (7.4-10.4); Platelet Count 209 thou/uL (130-400); RBC Distribution Width 13.4 % (11.5-14.5); Red Blood Cell (RBC) Count 3.63 mill/uL (4.20-5.40)
[2019-08-18 04:54] LABS: Anion Gap 12 mmol/L (10-20); BUN (Urea Nitrogen) 28 mg/dL (9.8-20.1); Calc. Creatinine Clearance 27 mL/min (70-130); Calcium 8.7 mg/dL (7.8-10.44); Carbon Dioxide 24 mmol/L (23-31); Chloride 102 mmol/L (98-107); Estimated GFR-MDRD 29; Glucose 98 mg/dL (83-110); Potassium 4.8 mmol/L (3.5-5.1); Sodium 133 mmol/L (136-145)
[2019-08-18] MEDS: Levothyroxine Sodium 50 MCG TAB PO SCH (05:17)
--- NOTE | 2019-08-18 06:41 | PDOC.FM ---
- Subjective Subjective: Pt has no complaints this morning. Tele monitoring overnight: SR rate 60-65. 10 seconds of junctional rhythm, resolved. Denies CP, SOB, palpitations. - Objective MAR Reviewed: Yes Vital Signs & Weight: Vital Signs (12 hours) Temp Pulse Resp BP Pulse Ox 08/18/19 03:56 97.8 F 61 16 108/49 L 92 L 08/17/19 19:23 98.6 F 65 16 117/54 L 96 Weight Admit Weight 63.701 kg Weight 60.373 kg I&O: 08/16/19 08/17/19 08/18/19 06:59 06:59 06:59 Intake Total 1275 570 120 Output Total 1300 450 970 Balance -25 120 -850 Result Diagrams: 08/18/19 04:14 08/18/19 04:14 Phys Exam - Physical Examination Constitutional: NAD HEENT: moist MMs, sclera anicteric Neck: no nodes, full ROM rhonchi present, improved from previous exams. Cardiovascular: RRR, no rub soft systolic murmur. Gastrointestinal: soft, non-tender, no distention, positive bowel sounds Musculoskeletal: no edema, pulses present Neurological: non-focal, moves all 4 limbs Psychiatric: normal affect, A&O x 3 Skin: no rash, normal turgor, cap refill <2 seconds Dx/Plan (1) NSTEMI (non-ST elevated myocardial infarction) Code(s): I21.4 - NON-ST ELEVATION (NSTEMI) MYOCARDIAL INFARCTION Status: Resolved (2) Elevated troponin Code(s): R74.8 - ABNORMAL LEVELS OF OTHER SERUM ENZYMES Status: Acute (3) Major depression, chronic Code(s): F32.9 - MAJOR DEPRESSIVE DISORDER, SINGLE EPISODE, UNSPECIFIED Status : Acute (4) Status post catheter ablation of atrial fibrillation Code(s): Z98.890 - OTHER SPECIFIED POSTPROCEDURAL STATES Status: Acute (5) Hypothyroidism Code(s): E03.9 - HYPOTHYROIDISM, UNSPECIFIED Status: Chronic Qualifiers: Hypothyroidism type: unspecified Qualified Code(s): E03.9 - Hypothyroidism , unspecified (6) HTN (hypertension) Code(s): I10 - ESSENTIAL (PRIMARY) HYPERTENSION Status: Acute - Plan Plan: Elevated troponins from NSTEMI Type II, from demand ischemia. Resolved. A- Stable, cards and EP on board. Trop elevated 1.4 -> 3.1 ->2.8. Pt denies chest pain but has cough x 1 week before admission. EKG revealed st elevations in v1,v2 without reciprocal changes. No previous hx of stent placement. P- continue asa - cards started digoxin and amiodarone. Started Eliquis 5 mg BID. Cards tapering amiodarone. - EP consulted. Thank you for recommendations. - ASHLEY with cardioversion completed 08/17. Pt converted to NSR. Hx of Cough, likely dx sinusitis A- Influenza A/B neg, CRP 3.34, procal 0.03. CXR stable chostophrenic angle blunting. no acute process. P- continue omnicef 300 bid for 10 days HTN - lopressor started per Dr. Cagle ZEB Cr nml on admission. Cr 1.72 on 08/18. Will give 500 mL IV LR 08/18, holding lisinopril and lasix. A-fib w/ rvr morning 08/13/19. Resolved s/p cardioversion 08/17. A- still in afib despite ablation performed by [facility] over . EP is consulted. Cards started amiodarone and digoxin. P- IV amiodarone, digoxin, restart eliquis 5 mg bid. -f/u cards and EP recs. -ASHLEY with possible cardioversion 08/[address] Cagle. Cardiomyopathy - Likely mediated by tachycardia - EP and cards consulted - Echo showed EF 35-40%, A fib with RVR, septum and anterior wall severely hypokinetic, apex akinetic. - Started IV amiodarone, digoxin and eliquis. Hypothyroid A- Decreased to 50 mcg daily, from 75. As TSH low. tsh 0.1735. free t4 1.08, t3 2.70 P- plan for recheck in 4 weeks HFrEF A- Echo 08/28 revealed EF 50-55%. , more recent showing EF 40-45%. P- plans for ASHLEY GERD -cont home meds Hx of TAVR - aware performed by [facility] Hx of breast cancer in remission -MD aware Fluids: none VTE: therapeutic lovenox Code: Full Dispo: stable, inpatient >48 hr hx course anticipated.
[2019-08-18] MEDS ORDERED: Lactated Ringer's 500 ML IV SCH (06:45)
--- NOTE | 2019-08-18 08:06 | PDOC.CPN ---
- Subjective Date: 08/18/19 Time: 08:10 Interval history: The pt seen and examined. No overnight events. No cardiac complaints. - Objective Allergies/Adverse Reactions: Allergies Allergy/AdvReac Type Severity Reaction Status Date / Time doxycycline Allergy Severe Stomach Verified 01/14/18 12:46 Ache morphine Allergy Severe convulsions Verified 01/14/18 12:46 Penicillins Allergy Severe Anaphylaxis Verified 01/14/18 12:46 lactose AdvReac GI upset Verified 01/14/18 12:46 Visit Medications: Current Medications Acetaminophen (Tylenol) 650 mg PO Q6H PRN PRN Reason: Mild Pain (1-3) Amiodarone HCl (Cordarone) 400 mg PO TID [facility] Last Admin: 08/17/19 20:24 Dose: 400 mg Apixaban (Eliquis) 5 mg PO BID [facility] Last Admin: 08/17/19 20:24 Dose: 5 mg Aspirin (Ecotrin) 81 mg PO DAILY [facility] Last Admin: 08/17/19 10:58 Dose: 81 mg Atorvastatin Calcium (Lipitor) 40 mg PO HS [facility] Last Admin: 08/17/19 20:24 Dose: 40 mg Cefdinir (Omnicef) 300 mg PO BID [facility] Last Admin: 08/17/19 20:24 Dose: 300 mg Fluticasone Propionate (Flonase Nasal [place]) 0 gm NASAL DAILY [facility] Last Admin: 08/17/19 10:59 Dose: 1 spr Furosemide (Lasix) 20 mg PO DAILY [facility] Last Admin: 08/17/19 10:59 Dose: 20 mg Amiodarone HCl 450 mg/Miscellaneous Medication 1 each/ Dextrose/Water 259 mls @ 0 mls/hr IVPB INF [facility]; Protocol Last Admin: 08/14/19 16:47 Dose: 259 mls Levothyroxine Sodium (Synthroid) 50 mcg PO 0600 [facility] Last Admin: 08/18/19 05:17 Dose: 50 mcg Lisinopril (Zestril) 2.5 mg PO QAM [facility] Last Admin: 08/17/19 10:59 Dose: 2.5 mg Loratadine (Claritin) 10 mg PO DAILY [facility] Last Admin: 08/17/19 10:59 Dose: 10 mg Metoprolol Tartrate (Lopressor) 12.5 mg PO BID [facility] Last Admin: 08/17/19 20:25 Dose: 12.5 mg Multivitamins (Theragran) 1 tab PO DAILY [facility] Last Admin: 08/17/19 10:59 Dose: 1 tab Pantoprazole Sodium (Protonix) 40 mg PO DAILY [facility] Last Admin: 08/17/19 11:00 Dose: 40 mg Potassium Chloride (K-Dur) 20 meq PO QAM-[facility] Last Admin: 08/17/19 10:57 Dose: 20 meq Tramadol HCl (Ultram) 50 mg PO DAILY PRN PRN Reason: Pain Last Admin: 08/17/19 12:28 Dose: 50 mg Zolpidem Tartrate (Ambien) 10 mg PO HS [facility] Last Admin: 08/17/19 20:24 Dose: 10 mg Vital Signs & Weight: Vital Signs Temp Pulse Resp BP Pulse Ox 08/18/19 07:25 98 F 59 L 18 116/56 L 94 L 08/18/19 03:56 97.8 F 61 16 108/49 L 92 L Admit Weight 140 lb 7 oz Weight 133 lb 1.6 oz - Physical Exam General: alert & oriented x3 HEENT: mucus membranes moist Neck: supple neck Cardiac: regular rate and rhythm, S1/S2 Lungs: decreased breath sounds Neuro: cranial nerve 2-12 intact Extremities: no edema - Labs Result Diagrams: 08/18/19 04:14 08/18/19 04:14 Troponin/CKMB CK-MB (CK-2) 9.1 ng/mL (0-6.6) H* 08/12/19 17:45 Troponin I 2.838 ng/mL (< 0.028) H* 08/12/19 17:45 - Telemetry Sinus rhythms and dysrhythmias: sinus rhythm - Assessment/Plan Assessment/Plan: 1. Elevated Trop with unknown etiology - possible from s/p fall, Tachycardia, and/or Afib with RVR; s/p LHC in 2017 and 2018 showed normal coronary arteries 2. Afib with RVR - s/p ASHLEY/DCCV on 08/17/2019; remains in SR; on Amiodarone 400mg TID since 08/14/2019, which will taper down q 2 wks or may change to Multaq; On Metoprolol and Eliquis BID; digoxin was d/bibi. 3. Hx of Cough, likely dx sinusitis, URI, or PNA? - stable with allergy med. Repeat CXR showed stable 4. hx of severe with s/p TAVR in 2019 - on Eliquis. ASHLEY on 08/17/2019 showed normal function. 5. HTN - hypotensive; may hold Lisinopril 6. HLD - 7. Hypothyroidism - managed by PCP 8. hx of breast ca 9. ZEB - on 500ml IV bolus now; will hold Lisinopril and Lasix for now. MAR reviewed * Echo in 02/2019 with EF 55-60%, mild-mod MR, severe (s/p TAVR in 06/2019), mild-mod AI, mild PI and TR. * Echo on 08/13/2019 with EF 40-45%, akinetic apex, severe hypokinetic septum and anterior wall, and stable TAVR. * ASHLEY on 08/17/2019 showed her EF was back to normal, mod MR, mild TR, TAVR normal function, small perivalvular leak, No intracardiac masses or thrombi. Pt. seen and eval. by me. I agree with the A/P by the [employer]. Doing well post cardioversion. Her cough is better and she feels better. Hopefully home tomorrow. i will switch the amiodarone to Multaq. recheck renal function in AM.
[2019-08-18] MEDS: Fluticasone Propionate Nasal Spray 16 gm Bottle NASAL SCH (08:39)
[2019-08-18] MEDS: Potassium Chloride 20 MEQ TAB PO SCH (08:40)
[2019-08-18] MEDS: Loratadine 10 MG TAB PO SCH (08:40)
[2019-08-18] MEDS: Amiodarone 200 MG TAB PO SCH ×2 (08:40→15:28)
[2019-08-18] MEDS: Cefdinir 300 MG CAP PO SCH ×2 (08:40→19:58)
[2019-08-18] MEDS: Aspirin 81 mg Enteric Coated Tablet PO SCH (08:40)
[2019-08-18] MEDS: Metoprolol Tartrate 25 MG TAB PO SCH ×2 (08:40→20:00)
[2019-08-18] MEDS: Apixaban 5 MG TAB PO SCH (08:41)
[2019-08-18] MEDS: Multivit, Therapeutic 1 TAB PO SCH (08:41)
[2019-08-18] MEDS ORDERED: predniSONE 20 MG TAB PO SCH (10:45)
[2019-08-18] MEDS ORDERED: guaiFENesin ER 600 MG TAB PO SCH (11:00)
--- NOTE | 2019-08-18 11:20 | PRG ---
DATE OF SERVICE: 08/18/2019 Ms. Cooney is resting comfortably in bed and is no acute distress. She had a successful cardioversion yesterday. Cardiology like to keep an eye on her for one more day with subsequent discharge thereafter. We appreciate their input. Job ID: [id number]
--- NOTE | 2019-08-18 12:35 | PDOC.EP ---
- Subjective Date: 08/18/19 Time: 12:32 Interval History: S/P IV amio loading, now switched to PO amiodarone. s/p ASHLEY/CV on 08/17/2019. holding SR. still having weakness. cough is lessening. - Review of Systems Constitutional: reports: weakness. denies: chills, fever, malaise, sweats, other Respiratory: reports: cough, sputum. denies: hemoptysis, pleuritic pain, shortness of breath Cardiology: denies: chest pain, edema, heart racing, light headedness Gastrointestinal: denies: abdominal pain, constipation, diarrhea - Objective Allergies/Adverse Reactions: Allergies Allergy/AdvReac Type Severity Reaction Status Date / Time doxycycline Allergy Severe Stomach Verified 01/14/18 12:46 Ache morphine Allergy Severe convulsions Verified 01/14/18 12:46 Penicillins Allergy Severe Anaphylaxis Verified 01/14/18 12:46 lactose AdvReac GI upset Verified 01/14/18 12:46 Current Medications Acetaminophen (Tylenol) 650 mg PO Q6H PRN PRN Reason: Mild Pain (1-3) Amiodarone HCl (Cordarone) 400 mg PO TID [facility] Last Admin: 08/18/19 08:40 Dose: 400 mg Apixaban (Eliquis) 5 mg PO BID [facility] Last Admin: 08/18/19 08:41 Dose: 5 mg Aspirin (Ecotrin) 81 mg PO DAILY [facility] Last Admin: 08/18/19 08:40 Dose: 81 mg Atorvastatin Calcium (Lipitor) 40 mg PO HS [facility] Last Admin: 08/17/19 20:24 Dose: 40 mg Cefdinir (Omnicef) 300 mg PO BID [facility] Last Admin: 08/18/19 08:40 Dose: 300 mg Fluticasone Propionate (Flonase Nasal [place]) 0 gm NASAL DAILY [facility] Last Admin: 08/18/19 08:39 Dose: 1 spr Guaifenesin (Mucinex) 600 mg PO Q12HR [facility] Guaifenesin (Mucinex) 600 mg PO NOW [facility] Stop: 08/18/19 13:00 Last Admin: 08/18/19 11:08 Dose: 600 mg Amiodarone HCl 450 mg/Miscellaneous Medication 1 each/ Dextrose/Water 259 mls @ 0 mls/hr IVPB INF [facility]; Protocol Last Admin: 08/14/19 16:47 Dose: 259 mls Levothyroxine Sodium (Synthroid) 50 mcg PO 0600 [facility] Last Admin: 08/18/19 05:17 Dose: 50 mcg Loratadine (Claritin) 10 mg PO DAILY [facility] Last Admin: 08/18/19 08:40 Dose: 10 mg Metoprolol Tartrate (Lopressor) 12.5 mg PO BID [facility] Last Admin: 08/18/19 08:40 Dose: 12.5 mg Multivitamins (Theragran) 1 tab PO DAILY [facility] Last Admin: 08/18/19 08:41 Dose: 1 tab Pantoprazole Sodium (Protonix) 40 mg PO DAILY [facility] Last Admin: 08/18/19 08:41 Dose: 40 mg Potassium Chloride (K-Dur) 20 meq PO QAM-[facility] Last Admin: 08/18/19 08:40 Dose: 20 meq Prednisone (Prednisone) 40 mg PO QAM-WM [facility] Stop: 08/22/19 10:00 Prednisone (Prednisone) 40 mg PO NOW [facility] Stop: 08/18/19 12:45 Last Admin: 08/18/19 11:08 Dose: 40 mg Tramadol HCl (Ultram) 50 mg PO DAILY PRN PRN Reason: Pain Last Admin: 08/17/19 12:28 Dose: 50 mg Zolpidem Tartrate (Ambien) 10 mg PO [facility] Last Admin: 08/17/19 20:24 Dose: 10 mg Vital Signs & Weight: Vital Signs Temp Pulse Resp BP Pulse Ox 08/18/19 11:09 97.9 F 59 L 18 132/60 95 08/18/19 07:25 98 F 59 L 18 116/56 L 94 L 08/18/19 03:56 97.8 F 61 16 108/49 L 92 L Admit Weight 140 lb 7 oz Weight 133 lb 1.6 oz I/O: I/O 08/17/19 08/18/19 08/19/19 06:59 06:59 06:59 Intake Total 570 120 Output Total 450 970 Balance 120 -850 - Quality Measures Condition: Atrial Fibrillation/Flutter (hx or current) CV meds: Eliquis: Yes - Physical Exam General: alert & oriented x3, appears well, no apparent distress, speech clear, affect appropriate HEENT: mucus membranes moist, normocephaly Neck: supple neck, midline trachea, no JVD/HJR, no thromegaly Cardiology: regular rate and rhythm, no murmur, PMI nondisplaced Lungs: no wheezes, rales - left, scattered rhonchi. negative: rales - right, oxygen Neurology: cranial nerve 2-12 intact, sensory function intact Abdomen: unremarkable, active bowel sounds, no pulsations/bruits, no hepatosplenomegaly Extremities: dry, strong pulses, warm - Chadsvasc Risk factors Hypertension: 1 Age >75: 2 Female: 1 Risk Score: 4 - Labs Result Diagrams: 08/18/19 04:14 08/19/19 04:32 - EKG Interpretation EKG Method: Telemetry (ILR) EKG shows: Sinus rhythm - Assessment/Plan Assessment/Plan: 1. Recurrent atrial fibrillation/atypical atrial flutter -with rapid ventricular rate in the setting of upper respiratory viral illness, possibly pneumonia. Prior ablation in Summer 2017 2. Aortic valve stenosis status post successful transcatheter aortic valve placement in June of 2019. 3. Hypertension, well controlled. 4. Hypothyroidism. 5. CHADS-VASc score of at least 4 on the basis of advanced age female gender, and hypertension, previously on warfarin, being restarted on Eliquis this hospital stay. 6. Newly diagnosed cardiomyopathy, possibly tachycardia mediated. 7. Elevated troponins per Cardiology. 8. Acute kidney injury - creat 1.72 today, usually <1.0 - per medical team -eliquis adjusted. Now rates are well controled after IV amiodarone loading is complete. Now on PO amiodarone which will continue for short course while URI resolves. s/p successful ASHLEY/CV on 08/17. Maintaining SR. could consider multaq instead of amiodarone, as EF normalized per ASHLEY on 08/17, if patient is able to afford this medication. Will defer to cardiology regarding this. Reducing eliquis to 2.5mg BID with recent elevation in creat.and wt of 133lb. Anticipate she will require 5mg BID once creat stabilizes. I have assessed and examined the patient and agree with the findings and plan as detailed above as documented by Madison White NP
[2019-08-18] MEDS: guaiFENesin ER 600 MG TAB PO SCH (19:57)
[2019-08-18] MEDS: Atorvastatin Calcium 40 MG TAB PO SCH (19:58)
[2019-08-18] MEDS: Zolpidem Tartrate 5 MG TAB PO SCH (20:00)
[2019-08-18] MEDS ORDERED: Apixaban 5 MG TAB PO SCH (21:00)
[2019-08-19 05:50] LABS: Anion Gap 10 mmol/L (10-20); BUN (Urea Nitrogen) 19 mg/dL (9.8-20.1); Calc. Creatinine Clearance 49 mL/min (70-130); Calcium 9.1 mg/dL (7.8-10.44); Carbon Dioxide 27 mmol/L (23-31); Chloride 104 mmol/L (98-107); Estimated GFR-MDRD 57; Glucose 113 mg/dL (83-110); Potassium 4.8 mmol/L (3.5-5.1); Sodium 136 mmol/L (136-145)
[2019-08-19] MEDS: Levothyroxine Sodium 50 MCG TAB PO SCH (06:00)
[2019-08-19] MEDS ORDERED: predniSONE 20 MG TAB PO SCH (08:00)
[2019-08-19] MEDS ORDERED: Dronedarone HCl 400 MG TAB PO SCH (08:00)
--- NOTE | 2019-08-19 08:09 | PDOC.CPN ---
- Subjective Date: 08/19/19 Time: 08:11 Interval history: the pt seen and examined. No overnight events. No overnight events. - Objective Allergies/Adverse Reactions: Allergies Allergy/AdvReac Type Severity Reaction Status Date / Time doxycycline Allergy Severe Stomach Verified 01/14/18 12:46 Ache morphine Allergy Severe convulsions Verified 01/14/18 12:46 Penicillins Allergy Severe Anaphylaxis Verified 01/14/18 12:46 lactose AdvReac GI upset Verified 01/14/18 12:46 Visit Medications: Current Medications Acetaminophen (Tylenol) 650 mg PO Q6H PRN PRN Reason: Mild Pain (1-3) Last Admin: 08/19/19 06:01 Dose: 650 mg Apixaban (Eliquis) 5 mg PO BID [facility] Aspirin (Ecotrin) 81 mg PO DAILY [facility] Last Admin: 08/18/19 08:40 Dose: 81 mg Atorvastatin Calcium (Lipitor) 40 mg PO HS [facility] Last Admin: 08/18/19 19:58 Dose: 40 mg Cefdinir (Omnicef) 300 mg PO BID [facility] Last Admin: 08/18/19 19:58 Dose: 300 mg Dronedarone (Multaq) 400 mg PO BID-[facility] Fluticasone Propionate (Flonase Nasal [place]) 0 gm NASAL DAILY [facility] Last Admin: 08/18/19 08:39 Dose: 1 spr Guaifenesin (Mucinex) 600 mg PO Q12HR [facility] Last Admin: 08/18/19 19:57 Dose: 600 mg Levothyroxine Sodium (Synthroid) 50 mcg PO 0600 [facility] Last Admin: 08/19/19 06:00 Dose: 50 mcg Loratadine (Claritin) 10 mg PO DAILY [facility] Last Admin: 08/18/19 08:40 Dose: 10 mg Metoprolol Tartrate (Lopressor) 12.5 mg PO BID [facility] Last Admin: 08/18/19 20:00 Dose: 12.5 mg Multivitamins (Theragran) 1 tab PO DAILY [facility] Last Admin: 08/18/19 08:41 Dose: 1 tab Pantoprazole Sodium (Protonix) 40 mg PO DAILY [facility] Last Admin: 08/18/19 08:41 Dose: 40 mg Potassium Chloride (K-Dur) 20 meq PO [facility] Last Admin: 08/18/19 08:40 Dose: 20 meq Prednisone (Prednisone) 40 mg PO [facility] Stop: 08/22/19 10:00 Tramadol HCl (Ultram) 50 mg PO DAILY PRN PRN Reason: Pain Last Admin: 08/17/19 12:28 Dose: 50 mg Zolpidem Tartrate (Ambien) 10 mg PO HS [facility] Last Admin: 08/18/19 20:00 Dose: 10 mg Vital Signs & Weight: Vital Signs Temp Pulse Resp BP Pulse Ox 08/19/19 07:10 97.6 F 61 16 128/61 97 08/19/19 03:27 98.6 F 62 18 127/57 L 95 08/19/19 00:00 62 122/58 L Admit Weight 140 lb 7 oz Weight 132 lb 14.4 oz - Physical Exam General: alert & oriented x3 HEENT: mucus membranes moist Neck: supple neck Cardiac: regular rate and rhythm, S1/S2 Lungs: clear to auscultation Neuro: cranial nerve 2-12 intact Extremities: no edema - Labs Result Diagrams: 08/18/19 04:14 08/19/19 04:32 Troponin/CKMB CK-MB (CK-2) 9.1 ng/mL (0-6.6) H* 08/12/19 17:45 Troponin I 2.838 ng/mL (< 0.028) H* 08/12/19 17:45 - Telemetry Sinus rhythms and dysrhythmias: sinus rhythm - Assessment/Plan Assessment/Plan: 1. Elevated Trop with unknown etiology - possible from s/p fall, Tachycardia, and/or Afib with RVR; s/p LHC in 2016 and 2018 showed normal coronary arteries 2. Afib with RVR - s/p ASHLEY/DCCV on 08/17/2019; remains in SR; Stopped Amiodarone and start Multaq 400mg BID from today; On Metoprolol and Eliquis BID ; digoxin was d/bibi. 3. Hx of Cough, likely dx sinusitis, URI, or PNA? - stable with allergy med. Repeat CXR showed stable 4. hx of severe with s/p TAVR in 2019 - holding Plavix since she is on Eliquis. ASHLEY on 08/17/2019 showed normal function. 5. HTN - stable with holding Lisinopril 6. HLD - 7. Hypothyroidism - managed by PCP 8. hx of breast ca 9. ZEB - improved MAR reviewed * Echo in 02/2019 with EF 55-60%, mild-mod MR, severe (s/p TAVR in 06/2019), mild-mod AI, mild PI and TR. * Echo on 08/13/2019 with EF 40-45%, akinetic apex, severe hypokinetic septum and anterior wall, and stable TAVR. * ASHLEY on 08/17/2019 showed EF 55-60%, mod MR, mild TR, TAVR normal function, small perivalvular leak, No intracardiac masses or thrombi. *From Cardiac standpoint, the pt is stable to d/c home with Multaq 2 wks sample. She does not need EVR since she has LINQ placement; The pt will f/u with Dr Cagle' office in 2 wks.
--- NOTE | 2019-08-19 08:25 | PDOC.FM ---
- Subjective Subjective: Pt reports cough alleviation since starting mucinex and prednisone. Pt very eager to go home. Pt has link monitor in place. Denies CP, SOB. Cough present but improving. - Objective MAR Reviewed: Yes Vital Signs & Weight: Vital Signs (12 hours) Temp Pulse Resp BP Pulse Ox 08/19/19 07:10 97.6 F 61 16 128/61 97 08/19/19 03:27 98.6 F 62 18 127/57 L 95 08/19/19 00:00 62 122/58 L Weight Admit Weight 63.701 kg Weight 60.282 kg I&O: 08/18/19 08/19/19 08/20/19 06:59 06:59 06:59 Intake Total 120 1650 Output Total 970 1450 Balance -850 200 Result Diagrams: 08/18/19 04:14 08/19/19 04:32 Phys Exam - Physical Examination Constitutional: NAD HEENT: moist MMs, sclera anicteric Neck: no nodes, no JVD, full ROM Respiratory: no rhonchi, clear to auscultation bilateral (Lungs clear and greatly improved from hospital course ) Cardiovascular: RRR, no rub Gastrointestinal: soft, non-tender, no distention Musculoskeletal: no edema, pulses present Neurological: non-focal, moves all 4 limbs Psychiatric: normal affect, A&O x 3 Skin: no rash, normal turgor, cap refill <2 seconds Dx/Plan (1) NSTEMI (non-ST elevated myocardial infarction) Code(s): I21.4 - NON-ST ELEVATION (NSTEMI) MYOCARDIAL INFARCTION Status: Resolved (2) Elevated troponin Code(s): R74.8 - ABNORMAL LEVELS OF OTHER SERUM ENZYMES Status: Acute (3) Major depression, chronic Code(s): F32.9 - MAJOR DEPRESSIVE DISORDER, SINGLE EPISODE, UNSPECIFIED Status : Acute (4) Status post catheter ablation of atrial fibrillation Code(s): Z98.890 - OTHER SPECIFIED POSTPROCEDURAL STATES Status: Acute (5) Hypothyroidism Code(s): E03.9 - HYPOTHYROIDISM, UNSPECIFIED Status: Chronic Qualifiers: Hypothyroidism type: unspecified Qualified Code(s): E03.9 - Hypothyroidism , unspecified (6) HTN (hypertension) Code(s): I10 - ESSENTIAL (PRIMARY) HYPERTENSION Status: Acute - Plan Plan: Elevated troponins from NSTEMI Type II, from demand ischemia. Resolved. A- Stable, cards and EP on board. Trop elevated 1.4 -> 3.1 ->2.8. Pt denies chest pain but has cough x 1 week before admission. EKG revealed st elevations in v1,v2 without reciprocal changes. No previous hx of stent placement. P- continue asa - cards started digoxin and amiodarone. Started Eliquis 5 mg BID. Cards tapering amiodarone. d/c on multaq and eliquis - EP consulted. Thank you for recommendations. - ASHLEY with cardioversion completed 08/17. Pt converted to NSR. Hx of Cough, likely dx sinusitis A- Influenza A/B neg, CRP 3.34, procal 0.03. CXR stable chostophrenic angle blunting. no acute process. P- continue omnicef 300 bid for 10 days HTN - lopressor started per Dr. Cagle ZEB Cr nml on admission. Cr 1.72 on 08/18. Will give 500 mL IV LR 08/18, holding lisinopril and lasix. A-fib w/ rvr morning 08/13/19. Resolved s/p cardioversion 08/17. A- still in afib despite ablation performed by [facility] over . EP is consulted. Cards started amiodarone and digoxin. P- IV amiodarone, digoxin, restart eliquis 5 mg bid. D/c's on eliquis and multaq. -f/u cards and EP recs. -ASHLEY with cardioversion to SR on 08/[address] Cagle. Cardiomyopathy - Likely mediated by tachycardia - EP and cards consulted - Echo showed EF 35-40%, A fib with RVR, septum and anterior wall severely hypokinetic, apex akinetic. - D/c with multaq and eliquis. Hypothyroid A- Decreased to 50 mcg daily, from 75. As TSH low. tsh 0.1735. free t4 1.08, t3 2.70 P- plan for recheck in 4 weeks HFrEF A- Echo 08/28 revealed EF 50-55%. , more recent showing EF 40-45%. P- plans for ASHLEY GERD -cont home meds Hx of TAVR -aware performed by L[facility] - nml appearance on ECHO. Hx of breast cancer in remission Fluids: none VTE: therapeutic lovenox Code: Full Dispo: stable, inpatient >48 hr hx course anticipated.
[2019-08-19] MEDS ORDERED: Apixaban 5 MG TAB PO SCH (09:00)
[2019-08-19] MEDS: guaiFENesin ER 600 MG TAB PO SCH (09:52)
[2019-08-19] MEDS: Fluticasone Propionate Nasal Spray 16 gm Bottle NASAL SCH (09:52)
[2019-08-19] MEDS: Aspirin 81 mg Enteric Coated Tablet PO SCH (09:53)
[2019-08-19] MEDS: Cefdinir 300 MG CAP PO SCH (09:53)
[2019-08-19] MEDS: Loratadine 10 MG TAB PO SCH (09:54)
[2019-08-19] MEDS: Potassium Chloride 20 MEQ TAB PO SCH (09:54)
[2019-08-19] MEDS: Metoprolol Tartrate 25 MG TAB PO SCH (09:54)
[2019-08-19] MEDS: Multivit, Therapeutic 1 TAB PO SCH (09:54)
[2019-08-19 11:51] VITALS: BP 131/63; TEMP 98.1
--- NOTE | 2019-08-19 12:29 | PRG ---
DATE OF SERVICE: 08/19/2019 Ms. Cooney looks and feels fine this morning and will be discharged. I have discussed the case with Dr. Mechelle Jimenez and agree with her assessment and plan. Job ID: [id number]
--- NOTE | 2019-08-19 16:32 | PDOC.EP ---
- Subjective Date: 08/19/19 Time: 08:00 Interval History: S/P IV amio loading, now switched to PO amiodarone. s/p ASHLEY/CV on 08/17/2019. holding SR. still having weakness. cough is lessening. - Review of Systems Constitutional: denies: chills, fever, malaise, sweats, weakness, other Respiratory: reports: cough, shortness of breath. denies: dry, hemoptysis, pleuritic pain Cardiology: reports: chest pain, edema, paroxysmal noc. dyspnea Gastrointestinal: reports: abdominal pain, constipation, nausea - Objective Allergies/Adverse Reactions: Allergies Allergy/AdvReac Type Severity Reaction Status Date / Time doxycycline Allergy Severe Stomach Verified 01/14/18 12:46 Ache morphine Allergy Severe convulsions Verified 01/14/18 12:46 Penicillins Allergy Severe Anaphylaxis Verified 01/14/18 12:46 lactose AdvReac GI upset Verified 01/14/18 12:46 Vital Signs & Weight: Vital Signs Temp Pulse Resp BP Pulse Ox 08/19/19 11:00 98.1 F 69 21 H 131/63 97 08/19/19 07:10 97.6 F 61 16 128/61 97 Admit Weight 140 lb 7 oz Weight 132 lb 14.4 oz I/O: I/O 08/18/19 08/19/19 08/20/19 06:59 06:59 06:59 Intake Total 120 1650 Output Total 970 1450 Balance -850 200 - Quality Measures Condition: Atrial Fibrillation/Flutter (hx or current) CV meds: Eliquis: Yes - Physical Exam General: alert & oriented x3, appears well, no apparent distress, speech clear, affect appropriate HEENT: mucus membranes moist, normocephaly Neck: supple neck Cardiology: regular rate and rhythm, no murmur, regular rate, regular rhythm, PMI nondisplaced Lungs: clear to auscultation, normal breath sounds, no wheeze, rales, rhonchi - Labs Result Diagrams: 08/18/19 04:14 08/19/19 04:32 - EKG Interpretation EKG shows: Sinus rhythm - Assessment/Plan Assessment/Plan: 1. Recurrent atrial fibrillation/atypical atrial flutter -with rapid ventricular rate in the setting of upper respiratory viral illness, possibly pneumonia. Prior ablation in Summer 2017 2. Aortic valve stenosis status post successful transcatheter aortic valve placement in June of 2019. 3. Hypertension, well controlled. 4. Hypothyroidism. 5. CHADS-VASc score of at least 4 on the basis of advanced age female gender, and hypertension, previously on warfarin, being restarted on Eliquis this hospital stay. 6. Newly diagnosed cardiomyopathy, possibly tachycardia mediated. 7. Elevated troponins per Cardiology. 8. Acute kidney injury - creat 1.72 today, usually <1.0 - per medical team -eliquis adjusted. Now rates are well controled after IV amiodarone loading is complete. Now on PO amiodarone which will continue for short course while URI resolves. s/p successful ASHLEY/CV on 08/17. Maintaining SR. could consider multaq instead of amiodarone, as EF normalized per ASHLEY on 08/17, if patient is able to afford this medication. Will defer to cardiology regarding this. She will require 5mg BID now that creat stabilizes. OK for DC by EP
--- NOTE | 2019-08-20 05:26 | PQF ---
[employer] Crystal Reports Winform ViewerNOEMI SLATER ALANNAH GONSALEZ [id number] [id number] CLINICAL DOCUMENTATION CLARIFICATION FORM: POST DISCHARGE Addendum to original discharge summary date: ____ Late entry note date: __ DATE:08/20/2019 ATTN:ALANNAH GONSALEZ Please exercise your independent, professional judgment in responding to the clarification form. Clinical indicators are provided on the bottom of this form for your review Please check appropriate box(s): [ ] Atrial fibrillation is a complication of current/recent TAVR [ ] Atrial fibrillation is a not complication of current/recent TAVR [ ] Other diagnosis [ ] Unable to determine In addition, please specify: Present on Admission (POA): [ ] Yes [ ] No [ ] Unable to determine CLINICAL INDICATORS - SIGNS / SYMPTOMS / LABS the patient heart rate is sinus tach with heart rates 110s to 130s at ER - Documented in Consult note on 08/12 by Yumiko Poole Pulse rate 104 on 08/11 , 113 on 08/12 and 138 on 08/13 - Documented in Vital Signs hx of TAVR the patient asymptomatic right now - Documented in Consult note on by Yumiko Poole This morning pt developed a fib with RVR rate 140s - 150s - Documented in Family medicine PNs on 08/13 by Tony Min RISK FACTORS s/p TAVR procedure on June 2019 - Documented in Consult note on 08/12 by Yumiko Poole Type 2 NSTEMI Systolic CHF TREATMENT: Patient has had echocardiogram scheduled in october as outpatient and She is on Plavix - Documented in Consult note on 08/12 by Yumiko Poole EKG Echocardiogram Plan to stop Plavix and will start Eliquis 5mg BID at discharge - Documented in Family medicine PNs on 08/13 by Tnoy Min [employer] Crystal Reports Winform Viewer (This form is maintained as a part of the permanent medical record) 2014 [employer]. All Rights Reserved [email or web address] [not provided] MTDD
--- NOTE | 2019-08-20 05:54 | PQF ---
[employer] Crystal Reports Winform ViewerNOEMI SLATER ALANNAH GONSALEZ [id number] [id number] [id number] CLINICAL DOCUMENTATION CLARIFICATION FORM: POST DISCHARGE Addendum to original discharge summary date: ____ Late entry note date: __ DATE: 08/20/2019 ATTN:ALANNAH GONSALEZ Please exercise your independent, professional judgment in responding to the clarification form. Clinical indicators are provided on the bottom of this form for your review Please check appropriate box(s): HEART FAILURE: B. ACUITY [ ] Acute [ ] Acute on Chronic [ ] Chronic [ ] Other diagnosis [ ] Unable to determine In addition, please specify: Present on Admission (POA): [ ] Yes [ ] No [ ] Unable to determine For continuity of documentation, please document condition throughout progress notes and discharge summary. Thank You. CLINICAL INDICATORS - SIGNS / SYMPTOMS / LABS Echo 08/28 reveled EF 50-55% - Documented in Family medicine PNs on 08/12 by Tony Min DO HEpEF - Documented in Family medicine PNs on 08/12 by Tony Min DO more recent echo showing 40-45% - Documented in Family medicine PNs on 08/14 by Roberta Meier cardiomyopathy - Documented in Family medicine PNs on 08/17 by Tony Min DO RISKS: NSTEMI - Documented in H&P on 08/11 by Romeo Meier DO Afib with RVR - Documented in cardiology PNs on 08/13 by Yumiko Poole hx of TAVR TREATMENTS: Furosemide[lasix] 20mg daily - Medication report Plan repeat echo once in NSR per cardiology - Documented in Family medicine PNs on 08/14 by Roberta Meier Cardia consultation Echocardiogram EKG Chest xray, ASHLEY [employer] Crystal Reports Winform Viewer (This form is maintained as a part of the permanent medical record) 2014 [employer]. All Rights Reserved [email or web address] [email or web address] [not provided] MTDD
--- NOTE | 2019-08-20 11:48 | DIS ---
DATE OF ADMISSION: 08/11/2019 DATE OF DISCHARGE: 08/19/2019 RESIDENT: Mechelle Jimenez DO ADMITTING ATTENDING: Shantal Schwab MD DISCHARGE ATTENDING: Dewayne Oliver MD CONSULTS: 1. Cardiology, Dr. Cagle. 2. Electrophysiology, Dr. Persaud. 3. Case management. 4. Walking program. PROCEDURES PERFORMED: CTA of the chest/thorax negative for pulmonary embolism. Echocardiogram on 08/13/2019, which showed atrial fibrillation with RVR, difficult to assess with AFib and tachycardia, but appeared compromised. [place] was akinetic. Septum and anterior wall are severely hypokinetic. Right ventricular cavity is normal size. Left atrium, mild to moderately dilated, mild enlargement of the right atrial size, TAVR, [id number] mitral regurg. Transesophageal echocardiogram on 08/17, with cardioversion from atrial fibrillation to normal sinus rhythm. Echocardiogram, ASHLEY showed no left atrial or left atrial appendage thrombus and EF of 55% to 60%, and TAVR with normal function. DIAGNOSES: 1. Elevated troponins from non-ST elevation myocardial infarction type 2 from demand ischemia. 2. History of cough, likely diagnosed with sinusitis. 3. Hypertension. 4. Acute kidney injury. 5. Atrial fibrillation with RVR, resolved. 6. Cardiomyopathy. 7. Hypothyroidism. 8. Heart failure, reduced ejection fraction. 9. Gastroesophageal reflux disease. 10. History of TAVR. 11. History of breast cancer in remission. DISCHARGE MEDICATIONS: 1. Eliquis 5 mg p.o. b.i.d. 2. Aspirin 81 mg p.o. daily. 3. Lipitor 40 mg p.o. at bedtime. 4. Omnicef 300 mg p.o. b.i.d. for 4 more days. 5. Plavix 75 mg p.o. daily. 6. Multaq 400 mg p.o. b.i.d. with meals. 7. Lexapro 20 mg q.a.m. 8. Flonase nasal spray 1 to 2 sprays each naris daily. 9. Lasix 20 mg p.o. daily. 10. Mucinex 600 mg q.12 hours p.r.n. for congestion. 11. Levocetirizine 5 mg p.o. daily. 12. Synthroid 50 mcg p.o. q.a.m. before meals. 13. Lisinopril 2.5 mg p.o. q.a.m. 14. Metoprolol tartrate 12.5 mg p.o. b.i.d. 15. Remeron 15 mg p.o. at bedtime. 16. Multivitamin one p.o. daily. 17. Protonix 40 mg p.o. daily. 18. Potassium chloride one tab p.o. daily with 20 mEq. 19. Prednisone 40 mg p.o. for 3 more days. 20. Tramadol 1 tab p.o. daily. 21. Ambien 10 mg p.o. at bedtime. DISCONTINUED MEDICATIONS: 1. Amiodarone. 2. Digoxin. HISTORY OF PRESENT ILLNESS/HOSPITAL COURSE: Ms. Cooney is a 73-year-old female with a history of AFib status post ablation in June 2019, with TAVR procedure also around June 2019, history of breast cancer status post radical mastectomy, hyperlipidemia, hypothyroidism, came into the emergency department with dyspnea. She was found to have elevated troponin levels, but however denied any chest pain. Her troponin levels were appropriate for a diagnosis of NSTEMI. She was diagnosed with NSTEMI type 2 from demand ischemia. The patient developed atrial fibrillation with RVR during her hospital course, which acutely reduced heart failure with reduced ejection fraction. She was placed on therapeutic Lovenox on admission to the hospital for NSTEMI type 2. The patient was transitioned to Eliquis 5 mg p.o. b.i.d. and received transesophageal echocardiogram with cardioversion, which converted her to normal sinus rhythm at rate of 60 to 70 throughout the rest of the hospital course. The patient came in with a cough as well. She had a lot of facial pain as well as sinus drainage, diagnosed of sinusitis and started on Omnicef 300 mg p.o. b.i.d., nasal steroids, Mucinex as well as prednisone 40 for 5 days. For patient's AFib, originally she was started on amiodarone and then digoxin due to her blood pressure was low. Before discharge, amiodarone was discontinued and she was transitioned over to Multaq per Cardiology Dr. Cagle' recommendation. She also developed ZEB on her hospital stay. Creatinine peaked at 1.72. On the day of discharge, her creatinine was 0.95. Peak troponin was 3.476, which downtrended. EKG showed ST elevations of V1, V2 with RAD and LVH. Chest x-ray was negative for any acute cardiopulmonary process. TSH was 0.1 and her levothyroxine was decreased. Free T4 of 1.08, free T3 of 2.7. The patient showed marked improvement in her respiratory status. Over her hospital course, the breath sounds eventually being clear on 08/19/2019. This infection, acute sinusitis was thought to set off her AFib with RVR or secondary to her NSTEMI type 2. The patient was very stable upon discharge and eager to go home. DISCHARGE INSTRUCTIONS: 1. Location: Home. 2. Diet: Heart healthy. 3. Activity: As tolerated. 4. Followup: Follow up with Dr. Cagle in 2 weeks and primary care in 1 week. Job ID: [id number] [email or web address]
--- NOTE | 2019-08-20 20:21 | OP ---
DATE OF PROCEDURE: 08/17/19 Electrical cardioversion was performed after the patient underwent a transesophageal echocardiogram. Using one attempt at 200 joules, she was successfully converted back to normal sinus rhythm. Heart ra te is anywhere between the 40s to 70s but did remain in sinus rhythm. Occasionally junctional rhythm. We will continue to monitor the patient very carefully. Otherwise, there were no complications or di fficulties encountered. She had been given short acting propofol for the procedure. If she continues to have severe bradycardia after the cardioversion, we will need to adjust her medications and eventu ally she may need to undergo pacemaker insertion if she is deemed to have tachy/elisha syndrome.
--- NOTE | 2019-08-20 20:22 | ECHO ---
DATE OF PROCEDURE: 08/20/19 INDICATION FOR PROCEDURE: This is a 73-year-old patient who is status post Ross procedure who had normal coronary arteries who presented with atrial fibrillation with rapid ventricular response. Had decrease in left ventricular systolic function. Ejection fraction on admission was less than 50% estimated at 40-45% when compared to the previous echo. She remained in atrial fibrillation. She was started on Amiodarone. She had al ready been on Eliquis for quite some time. She had a TAVR recently. She was advised to undergo a long sesophageal echocardiogram to evaluate the aortic valve as well as to rule out evidence of intracardi ac thrombi or masses despite being on Eliquis and attempt to convert to her back to sinus rhythm. She was taken to the recovery area where she underwent the procedure today without too many difficult ies or complications. There was some difficulty in passing the probe down the posterior esophagus due to what felt like to be a large hard ridge in the posterior roof of the mouth. Somewhat difficult to guide a probe down. Eventually the probe was passed down the distal esophagus. IMPRESSION: 1. Normal left ventricular systolic function. Ejection fraction estimated at 60-65%. 2. Moderate mitral valve regurgitation. 3. Mild tricuspid valve regurgitation. 4. TAVR in the aortic position with a small perivalvular leak along the left atrial side. 5. Left atrial dilatation. Left atrium was measured at 5.2 cm. 6. No evidence of intracardiac thrombi or masses. 7. No evidence of left atrial appendage thrombus. 8. What appears to be smoke formation in he left atrium. The TAVR otherwise appeared to be jaleesa l except for a small perivalvular leak. All three leaflets were noted and appeared to be functioning normally. After the transesophageal echocardiogram we proceeded then with an electrical cardioversion .
== END 2019-08-19 13:04 | disposition home or self-care (01) | DRG 281 ==
LOC: ERS 17:17 → 2NO 20:49
PROVIDERS: ADMIT Student in an Organized Health Care Education/Training Program; ATTEND Student in an Organized Health Care Education/Training Program
PROC: 5A2204Z Restoration of Cardiac Rhythm, Single (ICD-10-PCS; principal; 2019-08-13)
DX: I48.19 Other persistent atrial fibrillation (principal); I21.A1 Myocardial infarction type 2; I50.20 Unspecified systolic (congestive) heart failure; N17.9 Acute kidney failure, unspecified; E03.9 Hypothyroidism, unspecified; E78.5 Hyperlipidemia, unspecified; K21.9 Gastro-esophageal reflux disease without esophagitis; F32.9 Major depressive disorder, single episode, unspecified; I34.0 Nonrheumatic mitral (valve) insufficiency; I42.9 Cardiomyopathy, unspecified; Z95.2 Presence of prosthetic heart valve; Z88.0 Allergy status to penicillin; Z88.8 Allergy status to other drugs, medicaments and biological substances; Z79.899 Other long term (current) drug therapy; Z79.82 Long term (current) use of aspirin; Z98.890 Other specified postprocedural states; Z90.10 Acquired absence of unspecified breast and nipple; Z85.3 Personal history of malignant neoplasm of breast; Z79.02 Long term (current) use of antithrombotics/antiplatelets
CPT/HCPCS: 36415; 36416; 71045; 71275; 80048; 80053; 82553; 84145; 84439; 84443; 84481; 84484; 85025; 86140; 87040; 87804; 92960; 93005; 93010; 93306; 93312; 94640; 96360; 96361; 96365; 96372; 96375; J0282; J1160; J1650; J2704; J3475; J7070; J7512; J7620; Q9967

== ENCOUNTER 2019-09-05 14:38 | Emergency (ER) | payer MEDICARE, OTHER ==
[2019-09-05] MEDS ORDERED: Ondansetron PF 4 MG/2 ML Vial ONE (15:24)
[2019-09-05 15:26] LABS: #Basophils 0.1 thou/uL (0.0-0.2); #Eosinphils 0.3 thou/uL (0.0-0.7); #Lymphocytes 1.8 thou/uL (1.20-3.40); #Monocytes 0.7 thou/uL (0.11-0.59); #Neutrophils 3.5 thou/uL (1.40-6.50); %Basophils 1.5 % (0.0-1.0); %Eosinophils 3.9 % (0.0-10.0); %Lymphocytes 27.7 % (21.0-51.0); %Monocytes 11.7 % (0.0-10.0); %Neutrophils 55.2 % (42.0-75.0); Hemoglobin 10.9 g/dL (12.0-16.0); Mean Corpuscular Hemoglobin 30.4 pg (27.0-31.0); Mean Corpuscular Volume 92.2 fL (78.0-98.0); Mean Platelet Volume 8.7 fL (7.4-10.4); Platelet Count 188 thou/uL (130-400); RBC Distribution Width 14.5 % (11.5-14.5); Red Blood Cell (RBC) Count 3.58 mill/uL (4.20-5.40); White Blood Cell (WBC) Count 6.4 thou/uL (4.8-10.8)
--- NOTE | 2019-09-05 15:33 | RAD ---
EXAM: Single view of the chest HISTORY: Coughing up blood COMPARISON: 08/17/2019 FINDINGS: Single view of the chest shows an enlarged but stable cardiomediastinal silhouette. Increa sed interstitial markings are present. There is no evidence of consolidation, mass, or pleural effusion. The bones are unremarkable. IMPRESSION: Cardiomegaly without evidence of acute cardiopulmonary disease
[2019-09-05 15:48] LABS: ALT (SGPT) 10 U/L (8-55); AST (SGOT) 29 U/L (5-34); Albumin 3.7 g/dL (3.4-4.8); Alkaline Phosphatase 99 U/L (40-110); Anion Gap 14 mmol/L (10-20); BUN (Urea Nitrogen) 16 mg/dL (9.8-20.1); Bilirubin, Total 0.4 mg/dL (0.2-1.2); Calc. Creatinine Clearance 0 mL/min (70-130); Calcium 8.9 mg/dL (7.8-10.44); Carbon Dioxide 21 mmol/L (23-31); Chloride 103 mmol/L (98-107); Estimated GFR-MDRD 36; Globulin 3.6 g/dL (2.4-3.5); Glucose 114 mg/dL (83-110); Lipase 37 U/L (8-78); Protein, Total 7.3 g/dL (6.0-8.3); Sodium 133 mmol/L (136-145)
[2019-09-05 16:16] LABS: Bilirubin Negative (Negative); Blood, Urine Negative (Negative); Clarity Clear (Clear); Glucose, Urine (Dipstick) Normal (Negative); Leukocyte Negative Leu/uL (Negative); Nitrite Negative (Negative); Protein, Urine (Dipstick) Negative (Neg-Trace); Urobilinogen Normal mg/dL (Less than 2)
--- NOTE | 2019-09-05 17:19 | CT ---
CT ABDOMEN AND PELVIS WITH IV CONTRAST: HISTORY: Abdominal pain and nausea. COMPARISON: CTA chest from 08/11/2019. FINDINGS: There is patchy parenchymal density left lung base which has increased from the prior study, and find ings are worrisome for pneumonia at the left lung base. There is partial visualization of aortic valve replacement. The heart is enlarged. Vascular calcifications are seen in the abdominal aorta and involving the iliac arteries. There are increased density foci seen within the gallbladder, likely related to gallbladder calculi. The liver, spleen, pancreas, bilateral adrenal glands and right kidney demonstrate a normal CT appear ance. A subcentimeter, lwp-yrnuw-kk-characterize, hypodense lesion is seen in the inferior pole left kidney . There is a calcification in the region of the splenic hilum, which is thought to be related to calcif ications of a tortuous splenic artery as opposed to a splenic artery aneurysm, however this is mildly prominent and does measure 1 cm in greatest diameter. The urinary bladder and the uterus demonstrate a normal CT appearance for the patient's age. Scattered colonic diverticula are noted. There are loops of small bowel just lateral to the level of the descending colon and in the region of the splenic flexure, which may be related to an internal he rnia. The appendix is not visualized but there are no secondary signs to suggest appendicitis. No free fluid, fluid collection or lymphadenopathy is seen in the abdomen or pelvis. There is a mild compression fracture involving the T11 vertebral body, but this was also visualized o n the CTA chest from 08/11/2019 as well as the MRI of the thoracic spine from 01/16/2018. IMPRESSION: 1. Parenchymal densities at the left lung base which have increased from the prior study. Findings ar e worrisome for left lower lobe pneumonia. Followup to resolution is recommended. 2. Cholelithiasis. 3. Suggestion of a small hiatal hernia. 4. Colonic diverticulosis. 5. Osteopenia with stable compression fracture of the T11 vertebral body. POS: [facility]
== END 2019-09-05 16:51 | disposition home or self-care (01) ==
LOC: ERS 14:38
DX: E86.0 Dehydration (principal); E03.9 Hypothyroidism, unspecified; I49.9 Cardiac arrhythmia, unspecified; I48.91 Unspecified atrial fibrillation; E78.5 Hyperlipidemia, unspecified; I25.2 Old myocardial infarction; Z79.899 Other long term (current) drug therapy; Z79.82 Long term (current) use of aspirin; Z79.01 Long term (current) use of anticoagulants
CPT/HCPCS: 36416; 51701; 71045; 74177; 80053; 81003; 82550; 83690; 83880; 84484; 85025; 93005; 96361; 96374; A4353; J2405; Q9967

== ENCOUNTER 2020-01-11 09:46 | Outpatient (CLI) | payer MEDICARE, OTHER ==
--- NOTE | 2020-01-11 13:32 | MRI ---
MRI OF LEFT KNEE PERFORMED WITHOUT CONTRAST ENHANCEMENT: 01/11/20 COMPARISON: 12/03/17 exam. The anterior and posterior cruciate ligaments are intact. The medial as well as lateral menisci are normal in shape and appearance. The medial as well as lateral collateral ligaments and iliotibial band regions appear unremarkable. Patellar articular cartilage demonstrates a similar appearance to the previous examination with some increased signal change within the lateral facet extending to the subchondral bony plate suggesting s ome delamination. Given the stable appearance this appears to represent more chronic change. The area of increased signal change is not a true fluid density and may indicate an area of healing of an are a of delamination. Quadriceps and patellar tendons and medial and lateral patellar retinaculum are un remarkable. IMPRESSION: 1. No evidence of meniscal or cruciate ligament injury. 2. Stable appearance to the area of increased signal change within the lateral facet of the kilpatrick lla. The appearance is virtually identical to the 2018 exam. POS: [facility]
== END 2020-01-11 09:47 | disposition home or self-care (01) ==
LOC: MRI 09:46
PROVIDERS: ATTEND Orthopaedic Surgery
DX: S83.242D Other tear of medial meniscus, current injury, left knee, subsequent encounter (principal)

== ENCOUNTER 2020-04-24 06:29 | Outpatient (CLI) | payer MEDICARE, OTHER ==
[2020-04-24 14:20] LABS: #Basophils 0.1 thou/uL (0.0-0.2); #Eosinphils 0.8 thou/uL (0.0-0.7); #Lymphocytes 2.7 thou/uL (1.20-3.40); #Monocytes 0.6 thou/uL (0.11-0.59); #Neutrophils 3.5 thou/uL (1.40-6.50); %Basophils 0.8 % (0.0-1.0); %Lymphocytes 35.6 % (21.0-51.0); %Monocytes 8.4 % (0.0-10.0); %Neutrophils 45.2 % (42.0-75.0); Hemoglobin 12.3 g/dL (12.0-16.0); Mean Corpuscular HGB CONC 31.5 g/dL (32.0-36.0); Mean Corpuscular Hemoglobin 30.8 pg (27.0-31.0); Mean Corpuscular Volume 97.7 fL (78.0-98.0); Mean Platelet Volume 8.3 fL (7.4-10.4); Platelet Count 219 thou/uL (130-400); RBC Distribution Width 13.5 % (11.5-14.5); Red Blood Cell (RBC) Count 4.01 mill/uL (4.20-5.40); White Blood Cell (WBC) Count 7.7 thou/uL (4.8-10.8)
--- NOTE | 2020-04-24 14:49 | EKG ---
Test Reason : Blood Pressure : / mmHG Vent. Rate : 115 BPM Atrial Rate : 117 BPM P-R Int : 000 ms QRS Dur : 122 ms QT Int : 362 ms P-R-T Axes : 000 063 057 degrees QTc Int : 500 ms Sinus tachycardia 1st degree av block Non-specific intra-ventricular conduction delay Nonspecific ST abnormality Abnormal ECG No previous ECGs available Confirmed by BASILIO ALCANTAR M.D. ([id number]) on 04/24/2020 2:48:43 PM Referred By: MARITZA Confirmed By:BASILIO ALCANTAR M.D.
[2020-04-24 21:16] LABS: Anion Gap 21 mmol/L (10-20); BUN (Urea Nitrogen) 23 mg/dL (9.8-20.1); Calc. Creatinine Clearance 0 mL/min (70-130); Calcium 9.2 mg/dL (7.8-10.44); Carbon Dioxide 17 mmol/L (23-31); Chloride 107 mmol/L (98-107); Estimated GFR-MDRD 33; Glucose 104 mg/dL (83-110); Sodium 140 mmol/L (136-145)
[2020-04-25 13:01] LABS: SARS-CoV-2 MS2 Positive; SARS-CoV-2 N Gene Negative; SARS-CoV-2 S Gene Negative; SARS-CoV-2 by NAA Not Detected (NotDetected); SARS-CoV-2 orf1ab Negative
== END 2020-04-24 06:30 | disposition home or self-care (01) ==
LOC: LABBT 06:29
PROVIDERS: ATTEND Internal Medicine Cardiovascular Disease
DX: Z01.818 Encounter for other preprocedural examination (principal); Z20.828 Contact with and (suspected) exposure to other viral communicable diseases; I48.20 Chronic atrial fibrillation, unspecified
CPT/HCPCS: 80048; 85025; 93005; U0003; 87635; 93010

== ENCOUNTER 2020-04-28 10:32 | Day surgery (SDC) | payer MEDICARE, OTHER ==
[2020-04-26 13:19] VITALS: BMI 24.0
[2020-04-28] MEDS ORDERED: PROPOFOL 40 ML ONE (12:02)
--- NOTE | 2020-04-29 03:14 | DIS ---
DATE OF ADMISSION: 04/28/2020 DATE OF DISCHARGE: 04/28/2020 DATE OF PROCEDURE: 04/28/2020. She was seen as an outpatient, undergo a transesophageal echocardiogram and then to undergo an electrocardioversion of atrial flutter if there was no evidence of intracardiac thrombi or masses. DIAGNOSES: Included atrial flutter as well as a history of TAVR in the past. She also has a history of I believe ablations in the past for atrial fibrillation. She has had history of breast cancer with chemotherapy, radiation. She has fbtgbjlb-xr-exqlgd mitral valve regurgitation. DISCHARGE DIAGNOSES: Included atrial flutter as well as a history of TAVR in the past. She also has a history of I believe ablations in the past for atrial fibrillation. She has had history of breast cancer with chemotherapy, radiation. She has tuvrykve-wc-nccnpw mitral valve regurgitation. She was successfully converted from the atrial flutter back to normal sinus rhythm. PROCEDURE IN HOSPITAL: Included transesophageal echocardiogram as well as electrocardioversion of the atrial flutter back to sinus rhythm. DISCHARGE MEDICATIONS: Include: 1. Eliquis 5 mg b.i.d. 2. Aspirin 81 mg a day. 3. Lipitor 40 mg a day. 4. Lexapro 20 mg a day. 5. Flonase nasal spray as needed, 1 to 2 sprays each nostril q. day. 6. Lasix 20 mg daily. 7. She takes levocetirizine 5 mg once a day. 8. Synthroid 50 mcg daily. 9. Lisinopril 2.5 mg a day. 10. Metoprolol 12.5 mg b.i.d. 11. Remeron 15 mg a day. 12. Multivitamins daily. 13. Protonix 40 mg a day. 14. Potassium 20 mEq a day. 15. Tramadol 50 mg daily. 16. She also takes Ambien as needed 10 mg tablet at night. HOSPITAL COURSE: As noted, she was seen in the outpatient facility, where she underwent a transesophageal echocardiogram today, which showed no evidence of left atrial or left atrial appendage thrombus. No evidence of patent foramen ovale or atrial septal defect. The left ventricular systolic function remains stable. She did have a ouwljush-ph-elbzbz mitral valve regurgitation, moderate tricuspid valve regurgitation, and trivial periaortic leak. She did undergo electrical cardioversion using one attempt at 100 joules and was successfully converted back to sinus rhythm. If she remains stable, she will be discharged in the next 2 hours. I will see her back in the office in the next month. She will also continue her routine follow ups with the research mechanic. I believe she already has a scheduled appointment at the end of April. We will be more than happy to see her back prior to that should she develop any symptoms. Job ID: [id number]
--- NOTE | 2020-05-01 10:48 | CCLSPC ---
PROCEDURE: Electrical cardioversion. TECHNIQUE: After the transesophageal probe was passed and there was no evidence of left atrial or left atrial appendage thrombus, we proceed with electrical cardioversion of the atrial flutter. Using one attempt at 100 joules, she was successfully converted back to a sinus rhythm. The heart rate was in the 80s. Prior to the procedure, heart rate was in the one teens to 120s with atrial flutter. At this time, she remains in a sinus rhythm after the electrical cardioversion, 1 attempt at 100 joules. Job ID: [id number]
--- NOTE | 2020-05-01 15:43 | EKG ---
Test Reason : POST CARDIOVERSION Blood Pressure : / mmHG Vent. Rate : 078 BPM Atrial Rate : 078 BPM P-R Int : 224 ms QRS Dur : 126 ms QT Int : 434 ms P-R-T Axes : 085 076 045 degrees QTc Int : 494 ms Sinus rhythm with 1st degree A-V block Non-specific intra-ventricular conduction block Abnormal ECG When compared with ECG of 24-APR-2020 09:28, TN interval has increased ST no longer depressed in Inferior leads Confirmed by BASILIO ALCANTAR M.D. ([id number]) on 05/01/2020 3:42:31 PM Referred By: MARITZA Confirmed By:BASILIO ALCANTAR M.D.
== END 2020-04-28 14:02 | disposition home or self-care (01) ==
LOC: CCL 10:32
PROVIDERS: ATTEND Internal Medicine Cardiovascular Disease
PROC: 5A2204Z Restoration of Cardiac Rhythm, Single (ICD-10-PCS; principal; 2020-04-28)
PROC: B246ZZ4 Ultrasonography of Right and Left Heart, Transesophageal (ICD-10-PCS; 2020-04-28)
DX: I48.92 Unspecified atrial flutter (principal); I48.20 Chronic atrial fibrillation, unspecified; I08.1 Rheumatic disorders of both mitral and tricuspid valves; Z79.01 Long term (current) use of anticoagulants; Z79.82 Long term (current) use of aspirin; Z79.899 Other long term (current) drug therapy; Z88.0 Allergy status to penicillin; Z88.1 Allergy status to other antibiotic agents; Z88.5 Allergy status to narcotic agent; Z91.011 Allergy to milk products
CPT/HCPCS: 92960; 93005; 93010; 93312; J2704

== ENCOUNTER 2021-01-23 11:29 | Inpatient (IN) | payer MEDICARE, OTHER ==
[2021-01-23 11:49] LABS: #Basophils 0.1 thou/uL (0.0-0.2); #Eosinphils 0.4 thou/uL (0.0-0.7); #Lymphocytes 2.2 thou/uL (1.20-3.40); #Monocytes 0.6 thou/uL (0.11-0.59); #Neutrophils 3.4 thou/uL (1.40-6.50); %Eosinophils 5.6 % (0.0-10.0); %Lymphocytes 32.3 % (21.0-51.0); %Monocytes 9.5 % (0.0-10.0); %Neutrophils 51.6 % (42.0-75.0); Hemoglobin 11.3 g/dL (12.0-16.0); Mean Corpuscular HGB CONC 34.3 g/dL (32.0-36.0); Mean Corpuscular Hemoglobin 31.6 pg (27.0-31.0); Mean Corpuscular Volume 92.1 fL (78.0-98.0); Mean Platelet Volume 7.4 fL (7.4-10.4); Platelet Count 195 thou/uL (130-400); RBC Distribution Width 13.3 % (11.5-14.5); Red Blood Cell (RBC) Count 3.56 mill/uL (4.20-5.40); White Blood Cell (WBC) Count 6.7 thou/uL (4.8-10.8)
[2021-01-23 12:28] LABS: ALT (SGPT) 12 U/L (8-55); AST (SGOT) 37 U/L (5-34); Albumin 4.1 g/dL (3.4-4.8); Alkaline Phosphatase 81 U/L (40-110); Anion Gap 16 mmol/L (10-20); BUN (Urea Nitrogen) 18 mg/dL (9.8-20.1); Bilirubin, Total 0.4 mg/dL (0.2-1.2); Calc. Creatinine Clearance 0 mL/min (70-130); Calcium 9.4 mg/dL (7.8-10.44); Carbon Dioxide 25 mmol/L (23-31); Chloride 99 mmol/L (98-107); Globulin 3.7 g/dL (2.4-3.5); Glucose 106 mg/dL (83-110); Potassium 5.1 mmol/L (3.5-5.1); Protein, Total 7.8 g/dL (5.8-8.1); Sodium 135 mmol/L (136-145)
[2021-01-23] MEDS ORDERED: Ondansetron PF 4 MG/2 ML Vial ONE (13:30)
[2021-01-23] MEDS ORDERED: Meclizine HCl 25 MG TAB ONE (13:34)
[2021-01-23] MEDS ORDERED: Diazepam 5 MG TAB ONE (15:06)
[2021-01-23 17:16] LABS: Troponin I 0.034 ng/mL (< 0.028)
[2021-01-23] MEDS ORDERED: Ondansetron ODT 4 MG TAB PO PRN (17:21)
[2021-01-23] MEDS ORDERED: Ondansetron PF 4 MG/2 ML Vial IVP PRN (17:21)
[2021-01-23] MEDS ORDERED: Promethazine HCl 25 MG/ML VIAL IM PRN (17:28)
[2021-01-23 20:30] LABS: Troponin I 0.084 ng/mL (< 0.028)
[2021-01-23] MEDS: Acetaminophen 325 MG TAB PO PRN (20:47)
[2021-01-23] MEDS: Apixaban 5 MG TAB PO SCH (20:48)
[2021-01-23] MEDS: Atorvastatin Calcium 40 MG TAB PO SCH (20:48)
[2021-01-23] MEDS: Mirtazapine 15 MG TAB PO SCH (20:48)
[2021-01-23] MEDS: Metoprolol Tartrate 25 MG TAB PO SCH (20:48)
[2021-01-24 00:10] VITALS: BMI 25.0
[2021-01-24 05:52] LABS: Anion Gap 15 mmol/L (10-20); BUN (Urea Nitrogen) 15 mg/dL (9.8-20.1); Calc. Creatinine Clearance 43 mL/min (70-130); Calcium 8.9 mg/dL (7.8-10.44); Carbon Dioxide 20 mmol/L (23-31); Cardiac Risk 2.6 (Less than 4.5); Chloride 102 mmol/L (98-107); Cholesterol 156 mg/dl (< 200 Desired); Glucose 78 mg/dL (83-110); HDL Cholesterol 59 mg/dL (>60 Neg Risk); LDL Cholesterol, Calculated 80 mg/dL; Potassium 3.9 mmol/L (3.5-5.1); Sodium 133 mmol/L (136-145); Triglycerides 87 mg/dL (Less than 150)
[2021-01-24] MEDS: Levothyroxine Sodium 50 MCG TAB PO SCH (06:10)
[2021-01-24] MEDS: Apixaban 5 MG TAB PO SCH ×2 (08:41→20:58)
[2021-01-24] MEDS: Lisinopril 2.5 MG TAB PO SCH (08:41)
[2021-01-24] MEDS: Furosemide 20 MG TAB PO SCH (08:41)
[2021-01-24] MEDS: Escitalopram Oxalate 20 mg Tablet PO SCH (08:41)
[2021-01-24] MEDS: Loratadine 10 MG TAB PO SCH (08:41)
[2021-01-24] MEDS: Metoprolol Tartrate 25 MG TAB PO SCH ×2 (08:42→20:58)
[2021-01-24] MEDS: Potassium Chloride 20 MEQ TAB PO SCH (08:43)
[2021-01-24] MEDS: Acetaminophen 325 MG TAB PO PRN ×2 (08:43→16:56)
[2021-01-24] MEDS ORDERED: Diazepam 5 MG TAB PO SCH ×2 (08:45)
[2021-01-24] MEDS ORDERED: Prochlorperazine Edisylate 10 MG in Sodium Chloride 0.9% 50 ML IVPB SCH (08:45)
[2021-01-24] MEDS ORDERED: Meclizine HCl 25 MG TAB PO PRN (08:59)
[2021-01-24] MEDS ORDERED: Chloraseptic Spray 180 ml Bottle PO PRN (09:07)
[2021-01-24] MEDS: Fluticasone Propionate Nasal Spray 16 gm Bottle NASAL SCH (09:41)
[2021-01-24 11:01] LABS: SARS-CoV-2 PCR by NAA Not Detected (NotDetected)
[2021-01-24 11:36] LABS: Hemoglobin A1c 5.3 % (4.0-6.0); Troponin I 0.076 ng/mL (< 0.028)
[2021-01-24] MEDS: Atorvastatin Calcium 40 MG TAB PO SCH (20:58)
[2021-01-24] MEDS: Mirtazapine 15 MG TAB PO SCH (20:58)
[2021-01-24] MEDS ORDERED: Zolpidem Tartrate 5 MG TAB PO SCH (22:00)
[2021-01-25] MEDS: Levothyroxine Sodium 50 MCG TAB PO SCH (04:37)
[2021-01-25] MEDS ORDERED: predniSONE 20 MG TAB PO SCH (08:00)
[2021-01-25 08:14] VITALS: BP 139/62; TEMP 98.7
[2021-01-25] MEDS ORDERED: Fluticasone Propionate Nasal Spray 16 gm Bottle NASAL SCH (09:00)
[2021-01-25] MEDS: Metoprolol Tartrate 25 MG TAB PO SCH (09:27)
[2021-01-25] MEDS: Apixaban 5 MG TAB PO SCH (09:27)
[2021-01-25] MEDS: Lisinopril 2.5 MG TAB PO SCH (09:27)
[2021-01-25] MEDS: Furosemide 20 MG TAB PO SCH (09:28)
[2021-01-25] MEDS: Potassium Chloride 20 MEQ TAB PO SCH (09:28)
[2021-01-25] MEDS: Escitalopram Oxalate 20 mg Tablet PO SCH (09:28)
[2021-01-25] MEDS: Loratadine 10 MG TAB PO SCH (09:28)
[2021-01-25] MEDS: Fluticasone Propionate Nasal Spray 16 gm Bottle NASAL SCH (09:37)
[2021-01-25] MEDS ORDERED: Zolpidem Tartrate 5 MG TAB PO SCH (21:00)
== END 2021-01-25 11:00 | disposition home or self-care (01) | DRG 149 ==
LOC: ERS 11:29 → 2SW 16:16 → OBSVTOIN 01-25 06:30
PROVIDERS: ADMIT Family Medicine; ATTEND Family Medicine
DX: H83.09 Labyrinthitis, unspecified ear (principal); N17.9 Acute kidney failure, unspecified; Z23 Encounter for immunization; Z20.822 Contact with and (suspected) exposure to COVID-19; I48.91 Unspecified atrial fibrillation; E78.5 Hyperlipidemia, unspecified; G47.00 Insomnia, unspecified; K21.9 Gastro-esophageal reflux disease without esophagitis; J30.9 Allergic rhinitis, unspecified; E86.0 Dehydration; R77.8 Other specified abnormalities of plasma proteins; G43.909 Migraine, unspecified, not intractable, without status migrainosus; H81.09 Meniere's disease, unspecified ear; H81.10 Benign paroxysmal vertigo, unspecified ear; I25.2 Old myocardial infarction; Z88.1 Allergy status to other antibiotic agents; Z88.5 Allergy status to narcotic agent; Z88.0 Allergy status to penicillin; Z88.8 Allergy status to other drugs, medicaments and biological substances; Z79.899 Other long term (current) drug therapy; Z79.01 Long term (current) use of anticoagulants; Z79.51 Long term (current) use of inhaled steroids; Z95.2 Presence of prosthetic heart valve; Z85.3 Personal history of malignant neoplasm of breast; Z90.11 Acquired absence of right breast and nipple
CPT/HCPCS: 36415; 70450; 70551; 71045; 80048; 80053; 80061; 83036; 83880; 84484; 85025; 90471; 90732; 93005; 96374; 96375; G0009; G0378; J0780; J2405; J7512; U0003; U0005

== ENCOUNTER 2021-02-13 09:37 | Outpatient (CLI) | payer MEDICARE, BC | END 2021-02-13 09:38 | disposition home or self-care (01) | LOC: BICRAD 09:37 | PROVIDERS: ATTEND Podiatrist | DX: M79.675 Pain in left toe(s) (principal); R60.0 Localized edema ==

== ENCOUNTER 2021-12-03 06:03 | Day surgery (SDC) | payer MEDICARE, BC ==
[2021-11-28 15:08] VITALS: BMI 24.0
[2021-12-03] MEDS ORDERED: Fentanyl 100 MCG/2 ML VIAL ONE (06:52)
[2021-12-03 07:03] LABS: #Basophils 0.1 thou/uL (0.0-0.2); #Eosinphils 0.8 thou/uL (0.0-0.7); #Lymphocytes 1.8 thou/uL (1.20-3.40); #Monocytes 0.7 thou/uL (0.11-0.59); #Neutrophils 5.3 thou/uL (1.40-6.50); %Basophils 0.8 % (0.0-1.0); %Eosinophils 8.8 % (0.0-10.0); %Lymphocytes 20.5 % (21.0-51.0); %Monocytes 8.3 % (0.0-10.0); %Neutrophils 61.6 % (42.0-75.0); Hemoglobin 12.2 g/dL (12.0-16.0); Mean Corpuscular HGB CONC 32.6 g/dL (32.0-36.0); Mean Corpuscular Hemoglobin 31.6 pg (27.0-31.0); Mean Corpuscular Volume 96.9 fL (78.0-98.0); Mean Platelet Volume 7.4 fL (7.4-10.4); Platelet Count 227 thou/uL (130-400); RBC Distribution Width 13.4 % (11.5-14.5); Red Blood Cell (RBC) Count 3.87 mill/uL (4.20-5.40); White Blood Cell (WBC) Count 8.6 thou/uL (4.8-10.8)
[2021-12-03 07:27] LABS: Anion Gap 14 mmol/L (10-20); BUN (Urea Nitrogen) 14 mg/dL (9.8-20.1); Calc. Creatinine Clearance 32 mL/min (70-130); Calcium 10.5 mg/dL (7.8-10.44); Carbon Dioxide 24 mmol/L (23-31); Chloride 101 mmol/L (98-107); Glucose 104 mg/dL (83-110); Potassium 4.2 mmol/L (3.5-5.1); Sodium 135 mmol/L (136-145)
[2021-12-03] MEDS ORDERED: PROPOFOL 200 MG/20 ML VIAL ONE (07:32)
[2021-12-03] MEDS ORDERED: ePHEDrine 50 MG/ML VIAL ONE (07:32)
[2021-12-03] MEDS ORDERED: Lidocaine 1% (PF) 30 ML VIAL ONE (07:44)
== END 2021-12-03 08:40 | disposition home or self-care (01) ==
LOC: SDC 06:03
PROVIDERS: ATTEND Internal Medicine Cardiovascular Disease
PROC: 5A2204Z Restoration of Cardiac Rhythm, Single (ICD-10-PCS; principal; 2021-12-03)
PROC: 0JPT32Z Removal of Monitoring Device from Trunk Subcutaneous Tissue and Fascia, Percutaneous Approach (ICD-10-PCS; 2021-12-03)
PROC: 0JH632Z Insertion of Monitoring Device into Chest Subcutaneous Tissue and Fascia, Percutaneous Approach (ICD-10-PCS; 2021-12-03)
DX: I48.19 Other persistent atrial fibrillation (principal); I42.8 Other cardiomyopathies; K21.9 Gastro-esophageal reflux disease without esophagitis; I50.22 Chronic systolic (congestive) heart failure; E78.5 Hyperlipidemia, unspecified; E03.9 Hypothyroidism, unspecified; Z85.3 Personal history of malignant neoplasm of breast; Z87.891 Personal history of nicotine dependence; Z79.01 Long term (current) use of anticoagulants; Z79.890 Hormone replacement therapy; Z79.899 Other long term (current) drug therapy; Z88.0 Allergy status to penicillin; Z88.1 Allergy status to other antibiotic agents; Z88.5 Allergy status to narcotic agent; Z88.8 Allergy status to other drugs, medicaments and biological substances
CPT/HCPCS: 33285; 33286; 80048; 85025; 92960; 93005; 93010; J2001; J2704; J3010; J3490

== ENCOUNTER 2022-02-27 15:09 | Outpatient (CLI) | payer MEDICARE, BC | END 2022-02-27 15:10 | disposition home or self-care (01) | LOC: BICRAD 15:09 | PROVIDERS: ATTEND Family Medicine | DX: M25.531 Pain in right wrist (principal) ==

== ENCOUNTER 2025-03-30 10:53 | Outpatient (CLI) | payer MEDICARE, BC | END 2025-03-30 10:54 | disposition home or self-care (01) | LOC: BICRAD 10:53 | PROVIDERS: ATTEND Family Medicine | DX: M54.50 Low back pain, unspecified (principal); M47.817 Spondylosis without myelopathy or radiculopathy, lumbosacral region; M81.0 Age-related osteoporosis without current pathological fracture | CPT/HCPCS: 72100 ==